=== PATIENT | female | born 1955 | race Caucasian/White ===

== ENCOUNTER → 2017-07-22 13:17 | Outpatient (CLI) | payer OTHER, SELFPAY ==
[2017-07-26 12:53] LABS: HPV Reflexed? NOT INDICATED
== END ==
PROVIDERS: Visit Provider Obstetrics & Gynecology
DX: Z12.4 Encounter for screening for malignant neoplasm of cervix (principal)
CPT/HCPCS: 88175; G0145

== ENCOUNTER → 2017-08-16 14:40 | Outpatient (CLI) | payer OTHER, SELFPAY ==
--- NOTE | 2017-08-16 14:40 | DT_ITS ---
This patient was seen during an EMR downtime August 16, 2017 - August 23, 2017. This patient may have a combination of paper and electronic documentation or all paper documentation. All documentation is viewable within the e-chart portion of [employer] for each patient visit.
--- NOTE | 2017-08-16 14:50 | BI_ITS ---
MAMMOGRAPHY - BILATERAL DIAGNOSTIC REASON FOR EXAM: Female, 62 years old. Screening PERTINENT HISTORY: NO FAM HX - NO PREV SURG'S TECHNIQUE: Digital bilateral breast konrad (3D mammographic acquisition) in the CC and MLO projections. 2-D mediolateral oblique (MLO) and craniocaudad (CC) views of both breasts were obtained. CAD: Full Field Digital Mammography with Computer Added Detection was performed. COMPARISON: 08/06/2016, 08/02/2015 and 07/31/2014 FINDINGS: Breast Composition: There are scattered areas of fibroglandular density. There are no dominant masses or suspicious calcifications. No other significant abnormalities are identified. BI/SCREENING MAMM (CAD), BILAT IMPRESSION: Stable bilateral diagnostic mammogram. One year follow-up recommended. (A) ASSESSMENT CATEGORY: BIRADS Category 2: Benign. A letter regarding these results will be sent to the patient by the facility within 30 days. Approximately 10% of breast cancers are not detected by mammography. A normal mammogram should not delay biopsy of a clinically suspicious abnormality. Electronically Signed: Chino Mann MD at 14:56 EDT Tel , Service support ,
== END ==
PROVIDERS: Visit Provider Obstetrics & Gynecology
DX: Z12.31 Encounter for screening mammogram for malignant neoplasm of breast (principal)
CPT/HCPCS: 77063; 77067

== ENCOUNTER → 2018-07-21 | Outpatient (CLI) | payer OTHER, SELFPAY ==
--- NOTE | 2018-07-21 08:58 | BI_ITS ---
MAMMOGRAPHY - BILATERAL DIAGNOSTIC REASON FOR EXAM: Female, 63 years old. One-month history of left breast tenderness. PERTINENT HISTORY: Non-contributory. TECHNIQUE: Digital bilateral breast konrad (3D mammographic acquisition) in the CC and MLO projections. 2-D mediolateral oblique (MLO) and craniocaudad (CC) views of both breasts were obtained. CAD: Full Field Digital Mammography with Computer Added Detection was performed. COMPARISON: Comparison is made with prior study dated August 16, 2017 and August 06, 2016. FINDINGS: Breast Composition: There are scattered areas of fibroglandular density. There are no dominant masses or suspicious calcifications. No other significant abnormalities are identified. There has been no significant change since the prior study. BI/DIAG MAMM W/CAD, BILAT IMPRESSION: Stable bilateral diagnostic mammogram. One year follow-up recommended. (A) ASSESSMENT CATEGORY: BIRADS Category 1: Negative. A letter regarding these results will be sent to the patient by the facility within 30 days. Approximately 10% of breast cancers are not detected by mammography. A normal mammogram should not delay biopsy of a clinically suspicious abnormality. Electronically Signed: Taras Steele, at 10:56 EDT , Service support ,
== END | disposition home or self-care (01) ==
PROVIDERS: Referring Provider Obstetrics & Gynecology; Visit Provider Obstetrics & Gynecology
DX: N64.4 Mastodynia (principal)
CPT/HCPCS: 77062; 77066; G0279

== ENCOUNTER → 2018-09-06 | Outpatient (CLI) | payer OTHER, SELFPAY ==
--- NOTE | 2018-09-06 14:54 | BD_ITS ---
STUDY: DUAL ENERGY X-RAY ABSORPTIOMETRY / DXA REASON FOR EXAM: Female, 63 years old. The patient is postmenopausal. Loss of height. TECHNIQUE: Bone Mineral Density (BMD) measurements of lumbar spine and bilateral hips were obtained. COMPARISON: Comparison is made with prior study dated August 06, 2016. FINDINGS: Lumbar Spine (L1-L4): g/cm2 (0.930) / T-score (-2.1) / Z-score (-0.7) Findings are suggestive of osteopenia with a moderate fracture risk. Left Femur Total: g/cm2 (0.925) / T-score (-0.7) / Z-score (0.4) Left Femoral Neck: g/cm2 (0.856) / T-score (-1.3) / Z-score (0.0) Right Femur Total: g/cm2 (0.892) / T-score (-0.9) / Z-score (0.1) Right Femoral Neck: g/cm2 (0.815) / T-score (-1.6) / Z-score (-0.3) The T-Scores on the most recent prior examination were: Lumbar Spine (L1-L4): There has been worsening of bone density since the previous examination. Left Femur Total: which represents a worsening of 3.5%. Right Femur Total: which represents an improvement of 0.6%. BD/Dexa Bone Density Study IMPRESSION: The patient is considered osteopenic as outlined below according to World Andrea Organization (WHO) criteria with a moderate fracture risk. There has been worsening of bone density since the previous examination. Reference Information: The T-score is the number of standard deviations above or below the standard which is normal for young adults at their peak bone mineral density. The World Health Organization (WHO) interprets the T-scores as follows: Above -1 Normal bone density Between -1 and -2.5 Osteopenia Equal to / or below -2.5 Osteoporosis As a practical clinical guideline, osteopenia may be graded as follows: Mild -1 through -1.5 Moderate -1.6 through -2.0 Severe -2.1 through -2.4 The Z-score is the number of standard deviations above or below age-matched controls. A Z-score of less than -1.5 would be considered abnormal. References: 1. NIH Osteoporosis and Related Bone Diseases http://www.osteo.org 2. International Society for Clinical Densitometry http://www.iscd.org 3. National Osteoporosis Foundation http://www.nof.org Electronically Signed: Taras Steele, at 10:56 EDT , Service support ,
== END | disposition home or self-care (01) ==
LOC: OPBD 14:45
DX: M81.0 Age-related osteoporosis without current pathological fracture (principal)
CPT/HCPCS: 77080

== ENCOUNTER → 2018-12-29 13:55 | Outpatient (CLI) | payer OTHER, SELFPAY ==
--- NOTE | 2018-12-29 14:00 | RAD_ITS ---
STUDY: X-RAY - ABDOMEN/PELVIS REASON FOR EXAM: Female, 63 years old. Abdominal distention TECHNIQUE: Single AP view of the abdomen / pelvis. COMPARISON: None. FINDINGS: Extensive calcifications overlying both renal shadows more conspicuous than on the previous study simply due to less bowel gas and stool. There is an unremarkable bowel gas pattern. There is no demonstrated free abdominal air. The visualized liver, spleen and kidneys are grossly normal in size and morphology. There are calcified phleboliths in the pelvis. Normal visualized osseous structures. RAD/Abdomen Single View IMPRESSION: Extensive nephrolithiasis Electronically Signed: Daren Gibson MD at 10:02 EDT , Service support ,
== END ==
PROVIDERS: Referring Provider Nurse Practitioner Adult Health; Visit Provider Nurse Practitioner Adult Health
DX: N20.0 Calculus of kidney (principal)
CPT/HCPCS: 74018

== ENCOUNTER → 2019-02-02 08:41 | Outpatient (CLI) | payer OTHER, SELFPAY ==
--- NOTE | 2019-02-02 08:45 | RAD_ITS ---
STUDY: X-RAY - ABDOMEN/PELVIS REASON FOR EXAM: Female, 63 years old. Left-sided kidney stones. TECHNIQUE: Single AP view of the abdomen / pelvis. COMPARISON: 12/29/2018. FINDINGS: No gross change in the extremely numerous bilateral renal stones in all segments, measuring as much as 6 mm in greatest dimension. There is a linear collection of renal stones in the right pelvis that are more prominent than previously and may be in the distal right ureter. No other changes. There is an unremarkable bowel gas pattern. There is no demonstrated free abdominal air. The visualized liver, spleen and kidneys are grossly normal in size and morphology. Normal soft tissue structures. Normal visualized osseous structures. RAD/Abdomen Single View IMPRESSION: Grossly stable very numerous renal stones in all segments of both kidneys. Cannot exclude a linear collection of stones in the distal right ureter. Electronically Signed: Joao Brown MD at 16:51 EST , Service support ,
== END ==
PROVIDERS: Referring Provider Urology; Visit Provider Urology
DX: N20.0 Calculus of kidney (principal)
CPT/HCPCS: 74018

== ENCOUNTER 2019-02-15 10:09 | Day surgery (SDC) | payer OTHER, SELFPAY ==
[2019-02-15 11:00] VITALS: BP 141/85; PULSE 81; RESP 15; TEMP 36.9; O2SAT 98; BMI 28.8
[2019-02-15] MEDS: Lactated Ringers 1,000 ML 100 ML IV (11:12)
[2019-02-15] MEDS: Cefazolin 2 GM in 0.9% Normal Saline 100 ML IV (11:34)
--- NOTE | 2019-02-15 11:38 | DCINST_ITS ---
Discharge Diet: Light diet - advance as tolerated Discharge Activity: Return to Normal Activity Suture Line Care: Avoid Pulling/Pushing, Avoid Pinching/Bending Allergies/Adverse Reactions: Allergies No Known Allergies Allergy (Verified 02/15/19 10:59) Medications to take at Discharge Aspirin E.C. [Ecotrin] 81 mg PO DAILY@0800 03/22/13 Biotin 5,000 mcg PO DAILY 03/22/13 Calcium Carbonate/Vitamin D3 [Calcium 600 + Vit D Tablet] 1 each PO BID 03/22/13 Cholecalciferol (Vitamin D3) [Vitamin D3] 2,000 unit PO BID 03/22/13 Glucosamine/MSM/Chondroitin A [Glucosamine Chondroit MSM Tab] 2 each PO BID 03/22/13 Multivit-Min/FA/Lycopene/Lut [Centrum Silver Tablet] 1 each PO DAILY 03/22/13 Potassium Citrate [Urocit-K] 10 meq PO BID 03/22/13 Alendronate Sodium [Fosamax] 70 mg PO Q7D@0700 02/13/19 Primary Care Physician: Maria Esther Granger DO [Primary Care Provider] - Test Results: Test results from this visit will be discussed in further detail at your follow- up appointment, if applicable. Please Follow Up With: Conrad Dominguez MD When: please call to make an appointment.
--- NOTE | 2019-02-15 12:11 | PCM.OPRPT ---
Report of Operation Date of Procedure: 02/15/19 Pre-Operative Diagnosis: Multiple stones in the distal right ureter hydronephrosis Post-Operative Diagnosis: Same Surgery/Procedure Performed:: Cystoscopy, balloon dilation of the right ureter, right retrograde pyelogram, interpretation fluoroscopic images, right ureteroscopy laser lithotripsy of stones, and right stent placement. Description of Surgical Findings:: 63-year-old female taken back to the operating room at this with induction of general anesthesia she was placed in dorsolithotomy position the urethra vaginal area prepped and draped in the usual sterile fashion went into the bladder with a 21 Tongan rigid cystourethroscope the trigone was normal the left and right ureter was normal the bladder was normal no tumors or stones I then cannulated the right ureter office with a wire advanced a wire passed the stones were then advanced a balloon dilator in the distal ureter and balloon dilated the distal ureter I then left the wire in place and then next the wire went in with a SlimLine rigid ureteroscope I first encountered a stone impacted in the distal ureter this was lasered free and then went up the ureter and encountered a second stone that was stuck in the distal ureter a few centimeters higher this is laser little tiny pieces then all the pieces were passing into the bladder some small pieces were left in the ureter that should pass on their own I then performed a retrograde pyelogram and see contrast going up to the kidney nice smooth contrast he can see the area where the stone was a stuck in the ureter in the mid ureter I then loaded up a stent and over the stent I put a stent 6 Tongan by 24 cm, on the right side left the string of the stent for easy extraction during the patient's bladder and she was taken back to the PACU in good condition plan to see her in about a week to remove the stent. Type of Anesthesia:: General Drains: stent right - Admit VTE Documentation VTE Present on Admission: No VTE Mechan Device Prophylaxis: SCD's
[2019-02-15 12:21] VITALS: BP 112/84; BP 141/85; PULSE 85; RESP 16; TEMP 36.1; O2SAT 93
[2019-02-15 12:30] VITALS: BP 120/86; BP 141/85; PULSE 84; RESP 18; O2SAT 94
[2019-02-15 12:46] VITALS: BP 117/80; BP 141/85; PULSE 79; RESP 18; TEMP 36.1; O2SAT 92
[2019-02-15 13:55] VITALS: BP 123/78; BP 141/85; PULSE 66; RESP 16; O2SAT 94
== END 2019-02-15 14:32 | disposition home or self-care (01) ==
LOC: SDC 10:18 → AC 10:19
PROVIDERS: Referring Provider Urology; Visit Provider Urology
PROC: 0TJ98ZZ Inspection of Ureter, Via Natural or Artificial Opening Endoscopic (ICD-10-PCS; CPT 52352; principal; 2019-02-15 12:05)
DX: N13.2 Hydronephrosis with renal and ureteral calculous obstruction (principal); Z87.442 Personal history of urinary calculi
CPT/HCPCS: 00910; 52356; 76000; J7120; C2617; J2405

== ENCOUNTER → 2019-04-06 11:03 | Outpatient (CLI) | payer OTHER, SELFPAY ==
[2019-04-06 13:23] LABS: Anion Gap 5 (5-15); BUN 13 mg/dL (7-18); Chloride 107 mmol/L (98-107); Creatinine, Serum 1.08 mg/dL (0.55-1.02); EST Glomerular Filtration Rate 55 mL/min (>60); Est Glom Filt Rate - Afr Amer 66 mL/min (>60); Glucose 90 mg/dL (74-106); Potassium 4.6 mmol/L (3.5-5.1); Sodium Level 141 mmol/L (136-145)
== END ==
PROVIDERS: Referring Provider Urology; Visit Provider Urology
DX: N20.0 Calculus of kidney (principal)
CPT/HCPCS: 36415; 80048

== ENCOUNTER → 2019-09-08 07:58 | Outpatient (CLI) | payer OTHER, SELFPAY ==
--- NOTE | 2019-09-08 08:12 | BI_ITS ---
MAMMOGRAPHY - BILATERAL SCREENING 3-D TOMOSYNTHESIS REASON FOR EXAM: Female, 64 years old. Routine screening PERTINENT HISTORY: BILAT SCREENING - NO FAM HX - NO PREV SURG''S. TECHNIQUE: 2-D mammograms and 3-D Tomosynthesis of the breast (s) were performed. CAD was performed. COMPARISON: 07/21/2018 FINDINGS: The breast composition is composed of scattered fibroglandular density. Scattered benign calcifications are seen. No dense spiculated masses or suspicious microcalcifications are identified. No architectural distortion is identified. There is no skin thickening or retraction. There has been no significant change since the prior study. BI/SCREEN MAMM (CAD) W/BRANDAN BILAT IMPRESSION: No mammographic signs of malignancy. Routine yearly mammograms recommended. ASSESSMENT CATEGORY: BIRADS Category 1: Negative. A letter regarding these results will be sent to the patient by the facility within 30 days. FOLLOW UP RECOMMENDATION: Yearly follow up mammogram recommended. (A) Approximately 10% of breast cancers are not detected by mammography. A normal mammogram should not delay biopsy of a clinically suspicious abnormality. Electronically Signed: Daren Gibson MD at 9:15 EDT , Service support ,
== END ==
PROVIDERS: Referring Provider Obstetrics & Gynecology; Visit Provider Obstetrics & Gynecology
DX: Z12.31 Encounter for screening mammogram for malignant neoplasm of breast (principal)
CPT/HCPCS: 77063; 77067

== ENCOUNTER → 2020-07-04 13:25 | Outpatient (CLI) | payer OTHER, SELFPAY ==
--- NOTE | 2020-07-04 13:43 | RAD_ITS ---
STUDY: X-RAY - ABDOMEN/PELVIS REASON FOR EXAM: Female, 64 years old. CALCULUS OF KIDNEY TECHNIQUE: Single AP view of the abdomen / pelvis. COMPARISON: 02/02/2019 FINDINGS: Normal visualized lung bases. There is an unremarkable bowel gas pattern. Several calcific opacities overlying both kidneys consistent with bilateral renal stones. No definite ureteral stone. Normal soft tissue structures. Mild dextroscoliosis lumbar spine RAD/Abdomen Single View IMPRESSION: Bilateral renal stones. Electronically Signed: Christian Lujan MD at 17:03 EDT Tel , Service support ,
== END ==
LOC: LAB 13:28 → RAD 13:29
PROVIDERS: Referring Provider Urology; Visit Provider Urology
DX: N20.0 Calculus of kidney (principal)
CPT/HCPCS: 74018

== ENCOUNTER → 2020-08-02 | Outpatient (CLI) | payer OTHER, SELFPAY ==
[2020-08-06 20:24] LABS: HPV APTIMA, High Risk Negative (Negative)
== END | disposition home or self-care (01) ==
LOC: LABSPEC 11:20
PROVIDERS: Visit Provider Obstetrics & Gynecology
DX: Z12.4 Encounter for screening for malignant neoplasm of cervix (principal)
CPT/HCPCS: 87624; 88175; G0145

== ENCOUNTER → 2020-09-12 07:25 | Outpatient (CLI) | payer OTHER, SELFPAY ==
--- NOTE | 2020-09-12 07:28 | BI_ITS ---
MAMMOGRAPHY - BILATERAL SCREENING REASON FOR EXAM: Female, 65 years old. Routine annual screening examination. PERTINENT HISTORY: Non-contributory. TECHNIQUE: Digital bilateral breast brandan (3D mammographic acquisition) in the CC and MLO projections. 2-D mediolateral oblique (MLO) and craniocaudad (CC) views of both breasts were obtained. CAD: Full Field Digital Mammography with Computer Added Detection was performed. COMPARISON: Comparison is made with prior study dated 09/08/2019 and 07/21/2018. FINDINGS: Breast Composition: There are scattered areas of fibroglandular density. There are no dominant masses or suspicious calcifications. Stable benign-appearing bilateral axillary lymph nodes. No other significant abnormalities are identified. There has been no significant change since the prior study. BI/SCRN MAMM (CAD)W/BRANDAN BILAT IMPRESSION: Stable bilateral screening mammogram. Yearly follow-up mammogram recommended. (A) ASSESSMENT CATEGORY: BIRADS Category 2: Benign. A letter regarding these results will be sent to the patient by the facility within 30 days. Approximately 10% of breast cancers are not detected by mammography. A normal mammogram should not delay biopsy of a clinically suspicious abnormality. [id number] Electronically Signed: Taras Steele MD at 8:59 EDT , Service support ,
--- NOTE | 2020-09-12 08:13 | BD_ITS ---
STUDY: DUAL ENERGY X-RAY ABSORPTIOMETRY / DXA REASON FOR EXAM: Female, 65 years old. 733.90OsteopeniaBONE DENSITY REASON FOR EXAM. Patient is postmenopausal. Loss of height. TECHNIQUE: Bone Mineral Density (BMD) measurements of lumbar spine and bilateral hips were obtained. COMPARISON: Comparison is made with prior study dated 09/06/2018. FINDINGS: Lumbar Spine (L1-L4): g/cm2 (0.994) / T-score (-1.6) / Z-score (0.0) Findings are suggestive of osteopenia with a moderate fracture risk. Left Femur Total: g/cm2 (0.938) / T-score (-0.6) / Z-score (0.6) Left Femoral Neck: g/cm2 (0.869) / T-score (-1.2) / Z-score (0.2) Right Femur Total: g/cm2 (0.874) / T-score (-1.1) / Z-score (0.1) Right Femoral Neck: g/cm2 (0.840) / T-score (-1.4) / Z-score (0.0) The T-Scores on the most recent prior examination were: Lumbar Spine (L1-L4): There has been improvement of bone density since the previous examination. Left Femur Total: which represents an improvement of 1.4%. Right Femur Total: which represents a worsening of 2%. BD/Dexa Bone Density Study IMPRESSION: The patient is considered osteopenic as outlined below according to World Andrea Organization (WHO) criteria with a moderate fracture risk. There has been improvement of bone density since the previous examination. Reference Information: The T-score is the number of standard deviations above or below the standard which is normal for young adults at their peak bone mineral density. The World Health Organization (WHO) interprets the T-scores as follows: Above -1 Normal bone density Between -1 and -2.5 Osteopenia Equal to / or below -2.5 Osteoporosis As a practical clinical guideline, osteopenia may be graded as follows: Mild -1 through -1.5 Moderate -1.6 through -2.0 Severe -2.1 through -2.4 The Z-score is the number of standard deviations above or below age-matched controls. A Z-score of less than -1.5 would be considered abnormal. References: 1. NIH Osteoporosis and Related Bone Diseases www osteo.org 2. International Society for Clinical Densitometry www iscd.org 3. National Osteoporosis Foundation www nof.org Electronically Signed: Taras Steele MD at 15:23 EDT , Service support ,
== END ==
PROVIDERS: Visit Provider Obstetrics & Gynecology
DX: Z12.31 Encounter for screening mammogram for malignant neoplasm of breast (principal); M85.80 Other specified disorders of bone density and structure, unspecified site
CPT/HCPCS: 77063; 77067; 77080

== ENCOUNTER → 2021-09-16 | Outpatient (CLI) | payer MEDICARE, OTHER, SELFPAY ==
--- NOTE | 2021-09-16 14:15 | BI_ITS ---
MAMMOGRAPHY - BILATERAL SCREENING REASON FOR EXAM: Female, 66 years old. Routine annual screening examination. PERTINENT HISTORY: Non-contributory. TECHNIQUE: Digital bilateral breast brandan (3D mammographic acquisition) in the CC and MLO projections. 2-D mediolateral oblique (MLO) and craniocaudad (CC) views of both breasts were obtained. CAD: Full Field Digital Mammography with Computer Added Detection was performed. COMPARISON: Comparison is made with prior study dated 09/12/2020 and 09/08/2019. FINDINGS: Breast Composition: There are scattered areas of fibroglandular density. There are no dominant masses or suspicious calcifications. Stable benign-appearing bilateral axillary lymph nodes. No other significant abnormalities are identified. There has been no significant change since the prior study. BI/SCRN MAMM (CAD)W/BRANDAN BILAT IMPRESSION: Stable bilateral screening mammogram. Yearly follow-up mammogram recommended. (A) ASSESSMENT CATEGORY: BIRADS Category 2: Benign. A letter regarding these results will be sent to the patient by the facility within 30 days. Approximately 10% of breast cancers are not detected by mammography. A normal mammogram should not delay biopsy of a clinically suspicious abnormality. [id number] Electronically Signed: Taras Steele MD at 15:12 EDT ,
== END | disposition home or self-care (01) ==
LOC: OPBI 14:10
PROVIDERS: Visit Provider Obstetrics & Gynecology
DX: Z12.31 Encounter for screening mammogram for malignant neoplasm of breast (principal)
CPT/HCPCS: 77063; 77067

== ENCOUNTER → 2021-12-25 | Outpatient (CLI) | payer MEDICARE, OTHER, SELFPAY ==
--- NOTE | 2021-12-25 08:35 | RAD_ITS ---
STUDY: X-RAY - ABDOMEN/PELVIS REASON FOR EXAM: Female, 66 years old. CALCULUS OF KIDNEY TECHNIQUE: PA or AP COMPARISON: 07/04/2020. FINDINGS: Normal visualized lung bases. There are numerous bilateral renal calculi throughout both kidneys. These are seen throughout the upper, mid, and lower poles bilaterally and appear stable as compared to the prior study. There is an unremarkable bowel gas pattern. There is no demonstrated free abdominal air. The visualized liver, spleen and kidneys are grossly normal in size and morphology. Normal soft tissue structures. Moderate osteitis symphysis. RAD/Abdomen Single View IMPRESSION: Stable extensive bilateral nephrolithiasis. Osteitis symphysis. Electronically Signed: Cliff Bolton MD, BRYANT at 10:36 EDT ,
== END | disposition home or self-care (01) ==
PROVIDERS: Referring Provider Urology; Visit Provider Urology
DX: N20.0 Calculus of kidney (principal)
CPT/HCPCS: 74018

== ENCOUNTER → 2022-10-15 | Outpatient (CLI) | payer MEDICARE, OTHER, SELFPAY ==
--- NOTE | 2022-10-15 07:23 | BI_ITS ---
MAMMOGRAPHY - BILATERAL SCREENING REASON FOR EXAM: Female, 67 years old. Routine annual screening examination. PERTINENT HISTORY: Non-contributory. TECHNIQUE: Digital bilateral breast brandan (3D mammographic acquisition) in the CC and MLO projections. 2-D mediolateral oblique (MLO) and craniocaudad (CC) views of both breasts were obtained. CAD: Full Field Digital Mammography with Computer Added Detection was performed. COMPARISON: Comparison is made with prior study September 16, 2021 and September 12, 2020. FINDINGS: Breast Composition: There are scattered areas of fibroglandular density. There are no dominant masses or suspicious calcifications. Stable small benign-appearing bilateral axillary lymph nodes. No other significant abnormalities are identified. There has been no significant change since the prior study. BI/SCRN MAMM (CAD)W/BRANDAN BILAT IMPRESSION: Stable bilateral screening mammogram. Yearly follow-up mammogram recommended. (A) ASSESSMENT CATEGORY: BIRADS Category 2: Benign. A letter regarding these results will be sent to the patient by the facility within 30 days. Approximately 10% of breast cancers are not detected by mammography. A normal mammogram should not delay biopsy of a clinically suspicious abnormality. [id number] Electronically Signed: Taras Steele MD at 8:34 EDT ,
--- NOTE | 2022-10-15 08:09 | BD_ITS ---
STUDY: DUAL ENERGY X-RAY ABSORPTIOMETRY / DXA REASON FOR EXAM: Female, 67 years old. 627.8Menopausal postmenopausal BONE DENSITY REASON FOR EXAM TECHNIQUE: Bone Mineral Density (BMD) measurements of lumbar spine and bilateral hips were obtained. COMPARISON: Comparison is made with prior study of September 12, 2020. FINDINGS: Lumbar Spine (L1-L4): g/cm2 (0.817) / T-score (-2.1) / Z-score (-0.2) Findings are suggestive of osteopenia with a high fracture risk. Left Femur Total: g/cm2 (0.74) / T-score (-1.3) / Z-score (0.0) Left Femoral Neck: g/cm2 (0.661) / T-score (-1.7) / Z-score (-0.1) Right Femur Total: g/cm2 (0.734) / T-score (-1.7) / Z-score (-0.4) Right Femoral Neck: g/cm2 (0.666) / T-score (-1.6) / Z-score (-0.1) The T-Scores on the most recent prior examination were: Lumbar Spine (L1-L4): There has been worsening of bone density since the previous examination. Left Femur Total: which represents a worsening of 3.2%. Right Femur Total: which represents a worsening of 9.6%. BD/Dexa Bone Density Study IMPRESSION: The patient is considered osteopenic as outlined below according to World Andrea Organization (WHO) criteria with a moderate fracture risk. There has been worsening of bone density since the previous examination. Reference Information: The T-score is the number of standard deviations above or below the standard which is normal for young adults at their peak bone mineral density. The World Health Organization (WHO) interprets the T-scores as follows: Above -1 Normal bone density Between -1 and -2.5 Osteopenia Equal to / or below -2.5 Osteoporosis As a practical clinical guideline, osteopenia may be graded as follows: Mild -1 through -1.5 Moderate -1.6 through -2.0 Severe -2.1 through -2.4 The Z-score is the number of standard deviations above or below age-matched controls. A Z-score of less than -1.5 would be considered abnormal. References: 1. NIH Osteoporosis and Related Bone Diseases www osteo.org 2. International Society for Clinical Densitometry www iscd.org 3. National Osteoporosis Foundation www nof.org Electronically Signed: Taras Steele MD at 13:04 EDT ,
== END | disposition home or self-care (01) ==
LOC: OPBI 07:22
PROVIDERS: Visit Provider Student in an Organized Health Care Education/Training Program
DX: Z12.31 Encounter for screening mammogram for malignant neoplasm of breast (principal); Z78.0 Asymptomatic menopausal state; M85.80 Other specified disorders of bone density and structure, unspecified site
CPT/HCPCS: 77063; 77067; 77080

== ENCOUNTER → 2022-12-21 | Outpatient (CLI) | payer MEDICARE, OTHER, SELFPAY ==
--- NOTE | 2022-12-21 08:35 | RAD_ITS ---
STUDY: X-RAY - ABDOMEN/PELVIS REASON FOR EXAM: Female, 67 years old. CALCULUS OF KIDNEY TECHNIQUE: Two AP supine views of the abdomen and pelvis. COMPARISON: July 04, 2020 KUB FINDINGS: Normal visualized lung bases. There are bilateral multiple punctate renal stones. There is no demonstrated free abdominal air. The visualized liver, spleen and kidneys are grossly normal in size and morphology. There is a stable stable phlebolith in the right pelvis. There is degenerative change of the hip joints and symphysis pubis. RAD/Abdomen Single View IMPRESSION: Persistent Bilateral nephrolithiasis. Electronically Signed: Antonia Palomo MD at 14:51 EDT ,
== END | disposition home or self-care (01) ==
LOC: RAD 08:29
PROVIDERS: Referring Provider Urology; Visit Provider Urology
DX: N20.0 Calculus of kidney (principal)
CPT/HCPCS: 74018

== ENCOUNTER → 2023-11-03 | Outpatient (CLI) | payer MEDICARE, OTHER, SELFPAY ==
--- NOTE | 2023-11-03 09:30 | BI_ITS ---
MAMMOGRAPHY - BILATERAL SCREENING REASON FOR EXAM: Female, 68 years old. Routine annual screening examination. PERTINENT HISTORY: Non-contributory. TECHNIQUE: Digital bilateral breast brandan (3D mammographic acquisition) in the CC and MLO projections. 2-D mediolateral oblique (MLO) and craniocaudad (CC) views of both breasts were obtained. CAD: Full Field Digital Mammography with Computer Added Detection was performed. COMPARISON: Comparison is made with prior study dated October 15, 2022 and September 16, 2021. FINDINGS: Breast Composition: There are scattered areas of fibroglandular density. There are no dominant masses or suspicious calcifications. Stable bilateral axillary lymph nodes. No other significant abnormalities are identified. There has been no significant change since the prior study. BI/SCRN MAMM (CAD)W/BRANDAN BILAT IMPRESSION: Stable bilateral screening mammogram. Yearly follow-up mammogram recommended. (A) ASSESSMENT CATEGORY: BIRADS Category 2: Benign. A letter regarding these results will be sent to the patient by the facility within 30 days. Approximately 10% of breast cancers are not detected by mammography. A normal mammogram should not delay biopsy of a clinically suspicious abnormality. [id number] Electronically Signed: Taras Steele MD at 10:59 EDT ,
== END | disposition home or self-care (01) ==
LOC: OPBI 09:30
PROVIDERS: Referring Provider Nurse Practitioner Women's Health; Visit Provider Nurse Practitioner Women's Health
DX: Z12.31 Encounter for screening mammogram for malignant neoplasm of breast (principal)
CPT/HCPCS: 77063; 77067

== ENCOUNTER → 2023-12-27 | Outpatient (CLI) | payer MEDICARE, OTHER, SELFPAY ==
--- NOTE | 2023-12-27 07:27 | RAD_ITS ---
INDICATION: KIDNEY STONE EXAMINATION/TECHNIQUE: X-RAY - XR Abdomen 1 View COMPARISON: December 25, 2021 and December 21, 2022 FINDINGS: BOWEL GAS PATTERN: Non-obstructive. No bowel or stomach distention. FREE AIR: Not assessed on a single supine view. ORGANOMEGALY: There are persistent bilateral renal calculi measuring up to 5.3 mm on the right and 10.2 mm on the left. CALCIFICATIONS: No abnormal calcifications observed. LOWER CHEST: No acute pathology. BONES AND SOFT TISSUES: There are degenerative changes of the hips. RAD/Abdomen Single View IMPRESSION: Bilateral renal calculi measuring up to 10.2 mm on the left. Electronically Signed: Hailey Rocha MD at 8:24 EDT ,
== END | disposition home or self-care (01) ==
LOC: RAD 07:24
PROVIDERS: Referring Provider Urology; Visit Provider Urology
DX: N20.0 Calculus of kidney (principal)
CPT/HCPCS: 74018

== ENCOUNTER → 2024-10-03 | Outpatient (CLI) | payer MEDICARE, OTHER, SELFPAY ==
--- NOTE | 2024-10-03 07:59 | RAD_ITS ---
PROCEDURE: ABDOMEN SINGLE VIEW 10/03/2024 REASON FOR EXAM: CALCULUS OF KIDNEY TECHNIQUE: ABDOMEN SINGLE VIEW COMPARISON: 12/27/2023 FINDINGS: Extensive bilateral nephrolithiasis, there are more than 10 renal stones on each side. Largest measures 6 mm on the left and 7 mm on the right. 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 No definite ureteral stone. Scoliosis. Nondistended bowel. 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 Reading Location: [facility]-
--- OUTSIDE RECORDS SUMMARY | 2024-10-03 08:28 | XMS RPT_ITS | CCD ---
Author Organization [facility] CliniSyid Care Team Providers Care Manager Applied Name Role Phone DIMITRIOS KHAN, DR GALLEGOS Primary Care Physician OSCAR VALVERDE, DR XIMENA Fitzpatrick Attending Unavailab le DIMITRIOS DO, DR GALLEGOS Primary Care Unavailable DIMITRIOS DO, DR GALLEGOS Attending Unavailable DIMITRIOS DO, DR GALLEGOS Primary Care Unavailable DIMITRIOS DO, DR GALLEGOS Attending Unavailable DIMITRIOS DO, DR GALLEGOS Primary Care Unavailable BRIANNE FERGUSON PA-C Attending Unavailable DIMITRIOS KHAN, DR GALLEGOS Primary Care Unavailable Dimitrios KHAN, Dr. Rosy Alfredo Primary Care Provider Dimitrios KHAN, Dr. Rosy Alfredo Referring Provider [phone] Baljeet TOLENTINOCGladys Attending Provider [phone] Rosy Plunkett Primary Care Unavailable Baljeet [employer]ING [employer] MECHANICGladys Attending Unavailable Baljeet [employer]ING [employer] EQU[employer] MECHANICGladys Referring Unavailable Rosy Pluknett Primary Care Unavailable AngelicaConrad pinon Attending Unavailable AngelicaConrad pinon Referring Unavailable Rosy Plunkett Primary Care Unavailable AngelicaConrad Attending Unavailable AngelicaConrad Referring Unavailable Rosy Plunkett Primary Care Unavailable Rosy Plunkett Referring Unavailable Baljeet [employer]ING [employer] EQU[employer] MECHANICGladys Attending Unavailable DIMITRIOS DO, DR GALLEGOS Attending Unavailable DIMITRIOS DO, DR GALLEGOS Primary Care Unavailable DIMITRIOS , DR GALLEGOS Primary Care Unavailable BRIANNE FERGUSON PA-C Attending Unavailable Allergies Allergy Classification Reported Allergen(s) Allergy Type Date of Onset Reaction(s) Facility Ibandronate (1 source) Ibandronate; Translations: [ibandronate] Drug Allergy Myalgia [facility] [place] (14 sources) Ibandronate; Translations: [ibandronate] Drug Allergy Myalgia [facility] (1 source) Ibandronate Drug Allergy 5 Pain in joints [facility] (1 source) Ibadronate Drug Allergy 5 [facility] Repository Medications Current Medications Medication Drug Class(es) Dates Sig (Normalized) Sig (Original) alendronic acid 70 mg oral tablet (19 sources) Bisphosphonate Start: 09-21-2024 alendronate 70 mg oral tablet Dose : 70 mg = 1 tab(s), Oral, qWeek, # 12 tab(s), 3 Refill(s), Pharmacy: [facility]/pharmacy #[id number], 154.4, cm, 09/21/24 8:16:00 EDT, Height, kg, 09/21/24 8:16:00 EDT, Dosing Weight Start Date: 09/21/24 Status: Ordered Quantity: 12.0 Unit: tab(s) Repeat number: 4 Start: 02-13-2019 alendronate 70 mg oral tablet Dose : 70 mg = 1 tab(s), Oral, qWeek, # 12 tab(s), 3 Refill(s), Pharmacy: [facility]/pharmacy #[id number], 154, cm, 09/21/23 9:03:00 EDT, Height, kg, 09/21/23 9:03:00 EDT, Dosing Weight Start Date: 09/21/23 Status: Ordered Antiarthritic Combination No.2 (Glucosamine-Chondroitin) 900 mg tablet (1 source) Start: 08-21-2024 Antiarthritic Combination No.2 (Glucosamine-Chondroitin) 900 mg tablet Active mg PO August 21, 2024 12:00am baclofen 5 mg oral tablet (3 sources) gamma-Amino butyric Acid-ergic Agonist Start: 03-12-2022 baclofen 5 mg oral tablet Dose : 5 mg = 1 tab(s), Oral, TID, PRN as needed for muscle spasm, # 30 tab(s), 0 Refill(s), Pharmacy: [facility]/pharmacy #[id number], 155, cm, 03/10/22 14:33:00 EST, Height Start Date: 03/12/22 Status: Ordered Biotin (19 sources) Start: 08-24-2019 biotin Oral, qDay, 0 Refill(s) Start Date: 08/24/19 Status: Ordered Repeat number: 1 Start: 08-24-2019 biotin Oral, q Day, 0 Refill(s) Start Date: 08/24/19 Status: Ordered Start: 03-22-2013 take 2 capsules by m outh once daily Biotin 2,500 MCG capsule Active 5000 ug PO DAILY March 22, 2013 1:00am Start: 03-22-2013 take 5000 ug by mouth once karthikeyan ly Biotin Active 5000 MCG PO DAILY March 22, 2013 1:00am calcium citrate 1500 mg / cholecalciferol 200 unt oral tablet (1 source) Vitamin D Start: 08-18-2023 Calcium Citrate-Vitamin D3 (Calcium Citrate + D) 315 mg-5 mcg (200 unit) tablet Active 1 {tbl} PO DAILY August 18, 2023 12:00am cefdinir 300 mg oral capsule (1 source) Cephalosporin Antibacterial Start: 02-01-2021 End: 02-11-2021 cefdinir 300 mg oral capsule Dose : 300 mg = 1 cap(s), Oral, q12h, # 20 cap(s), 0 Refill(s), 69.5 Start Date: 02/01/21 Stop Date: 02/11/21 Status: Ordered Centrum Silver oral tablet (15 sources) Start: 08-24-2019 take 1 tablet by mouth once daily Centrum Silver oral tablet Oral, qDay, 0 Refill(s) Start Date: 08/24/19 Status: Ordered Repeat number: 1 Start: 08-24-2019 take 1 tablet by ricardo once daily Centrum Silver oral tablet Oral, qDay, 0 Refill(s) Start Date: 08/24/19 Status: Ordered cholecalciferol 0.05 mg oral tablet (4 sources) Vitamin D Start: 03-22-2013 take 1 tablet by mouth twice daily Cholecalciferol (Vitamin D3) (Vitamin D3) 2,000 UNIT tablet Active 2000 U PO TWICE A DAY March 22, 2013 1:00am Chondroitin Sulfates / Glucosamine / methylsulfonylmethane (5 sources) Start: 08-15-2020 chondroitin/glucosam ine/methylsulfonylme yordy 0 Refill(s) Start Date: 08/15/20 Status: Ordered Start: 03-22-2013 End: 08-18-2023 take 1 tablet by mouth twice daily Glucosamine Phz-Efx-Rwfmscegns 1 EACH tablet Discontinued 2 NMA PO TWICE A DAY March 22, 2013 1:00am August 18, 2023 2:43pm Start: 03-22-2013 Glucosamine Hc a-Dfk-Yewycsnlnb Active 2 EACH PO TWICE A DAY March 22, 2013 1:00am lutein 10 mg oral tablet (7 sources) Start: 08-18-2023 take 1 tablet by mouth once daily Lutein 10 mg tablet Active 10 mg PO DAILY August 18, 2023 12:00am give with meal/snack Start: 09-18-2022 lutein Oral, q Day, 0 Refill(s) Start Date: 09/18/22 Status: Ordered Repeat number: 1 Start: 09-18-2022 lutein Oral, q Day, 0 Refill(s) Start Date: 09/18/22 Status: Ordered methylsulfonylmethane 1000 m g oral tablet (14 sources) Start: 08-19-2021 take 1 tablet by mouth once daily MSM 1000 mg oral tablet 1, Oral, qDay, with glucosamine, 0 Refill(s) Start Date: 08/19/21 Status: Ordered Repeat number: 1 Start: 08-19-2021 take 1 tablet by ricardo twice daily MSM 1000 mg oral tablet 1, Oral, BID, with glucosamine, 0 Refill(s) Start Date: 08/19/21 Status: Ordered Amcdtbvc-Sao-Te-Lycopen-Lute in (Centrum Silver Tablet) 1 EACH tablet (4 sources) Start: 03-22-2013 Ugvbqlgm-Xbn-Kw-Lycopen-Lute in (Centrum Silver Tablet) 1 EACH tablet Active 1 NMA PO DAILY March 22, 2013 1:00am Start: 03-22-2013 Exldoedm-Tgx-T q-Ykvrnkz-Wpudyj (Centrum Silver Tablet) 1 EACH tablet Active 1 EACH PO DAILY March 22, 2013 1:00am potassium citrate 10 meq extended release oral tablet (20 sources) Start: 08-18-2023 take 1 tablet by mouth twice daily Potassium Citrate 10 mEq (1,080 mg) tablet extended release Active 2160 mg PO TWICE A DAY August 18, 2023 12:00am Start: 12-17-2018 take 1 tablet by ricardo twice daily potassium citrate 10 mEq oral tablet, extended release TAKE ONE TABLET BY MOUTH TWICE DAILY Start Date: 12/17/18 Status: Ordered Repeat number: 1 Start: 03-22-2013 End: 08-18-2023 Potassium Citrate (Urocit-K) 15 MEQ tablet extended release Discontinued 10 meq PO TWICE A DAY March 22, 2013 1:00am August 18, 2023 2:43pm sulfamethoxazole 800 mg / trimethoprim 160 mg oral tablet (1 source) Dihydrofolate Reductase Inhibitor Antibacterial, Sulfonamide Antimicrobial Start: 02-01-2021 End: 02-08-2021 take 1 tablet by mouth twice daily Bactrim DS 800 mg-160 mg oral tablet Dose = 1 tab(s), Oral, BID, X 7 day(s), # 14 tab(s), 0 Refill(s), Pharmacy: [facility]/pharmacy #[id number], 155, cm, 02/01/21 10:48:00 EST, Height, 70.5, kg, 02/01/21 10:48:00 EST, Dosing Weight Start Date: 02/01/21 Stop Date: 02/08/21 Status: Ordered Vitamin D3 (15 sources) Start: 08-24-2019 take 1 dose by mouth once daily Vitamin D3 Dose : 25 mcg =, Oral, qDay, 0 Refill(s) Start Date: 08/24/19 Status: Ordered Repeat number: 1 Start: 08-24-2019 take 1 dose by mouth once cailin y Vitamin D3 Dose : 25 mcg =, Oral, qDay, 0 Refill(s) Start Date: 08/24/19 Status: Ordered Start: 08-24-2019 Vitamin D3 qDa y, 0 Refill(s) Start Date: 08/24/19 Status: Ordered Completed/Discontinued Medications Medication Drug Class(es) Dates Sig (Normalized) Sig (Original) 8 hr acetaminophen 650 mg extended release oral tablet (6 sources) Start: 08-18-2023 End: 08-21-2024 take 1 tablet by mouth every twelve hours Acetaminophen (Tylenol Arthritis Pain) 650 mg tablet extended release Discontinued 650 mg PO Q12H August 18, 2023 12:00am August 21, 2024 8:07am Start: 11-20-2022 Tylenol 8 HR A rthritis Pain 650 mg oral tablet, extended release Dose : 1,300 mg = 2 tab(s), Oral, q8h, PRN as needed for pain, 0 Refill(s) Start Date: 11/20/22 Status: Ordered Repeat number: 1 acetaminophen 325 mg / HYDROcodone bitartrate 5 mg oral tablet (4 sources) Opioid Agonist Start: 02-15-2019 End: 03-01-2019 Hydrocodone-Acetaminophen 1 EACH tablet Discontinued 1 NMA PO EVERY 4 HOURS NEEDED as needed for Pain Score 1-10/10 14 February 15, 2019 February 19, 2019 1:00am March 01, 2019 1:10am Start: 02-15-2019 End: 03-01-2019 Hydrocodone-Acetaminophen Di scontinued 1 EACH PO EVERY 4 HOURS NEEDED 14 February 15, 2019 March 01, 2019 1:10am aspirin 81 mg delayed release oral tablet (4 sources) Platelet Aggregation Inhibitor, Nonsteroidal Anti-inflammatory Drug Start: 03-22-2013 End: 08-18-2023 take 1 tablet by mouth once daily Aspirin 81 MG tablet Discontinued 81 mg PO DAILY@0800 March 22, 2013 1:00am August 18, 2023 2:42pm calcium carbonate 1500 mg / cholecalciferol 0.01 mg oral tablet (4 sources) Vitamin D Start: 03-22-2013 End: 08-18-2023 Calcium Carbonate-Vitamin D3 (Calcium 600 + Vit D Tablet) 1 EACH tablet Discontinued 1 NMA PO TWICE A DAY March 22, 2013 1:00am August 18, 2023 2:43pm ciprofloxacin 500 mg oral tablet (4 sources) Quinolone Antimicrobial Start: 02-15-2019 End: 08-18-2023 take 1 tablet by mouth twice daily Ciprofloxacin Hcl 500 MG tablet Discontinued 500 mg PO TWICE A DAY February 15, 2019 1:00am August 18, 2023 2:43pm citrcal (15 sources) Start: 08-11-2019 citrcal citrcal, 2 tab(s), Oral, Daily, 0 Refill(s), 61.5 Start Date: 08/11/19 Status: Ordered Repeat number: 1 Start: 08-11-2019 citrcal citrca l, 2 tab(s), Oral, Daily, 0 Refill(s), 61.5 Start Date: 08/11/19 Status: Ordered Start: 08-11-2019 citrcal citrca l, 0 Refill(s), 61.5 Start Date: 08/11/19 Status: Ordered Problems Active Problems Problem Classification Problem Date Documented Date Episodic/Chronic Calculus of urinary tract (17 sources) Kidney stone; Translations: [Calculus of kidney] Onset: 01-21-2024 08-15-2020 Episodic Chronic kidney disease (15 sources) Chronic kidney disease stage 3 01-10-2021 Chronic Chronic kidney disease (1 source) Chronic kidney disease; Translations: [Chronic kidney disease, stage 3 unspecified] Onset: 09-21-2024 Genitourinary symptoms and ill-defined conditions (11 sources) Blood in urine 02-01-2021 Episodic Menopausal disorders (2 sources) Atrophic vaginitis; Translations: [Postmenopausal atrophic vaginitis] 08-21-2024 Chronic Comment on above: asymptomatic Osteoarthritis (13 sources) Osteoarthritis of knee; Translations: [Arthritis] 02-18-2022 Chronic Other bone disease and musculoskeletal deformities (15 sources) Osteopenia 08-11-2019 Episodic Other bone disease and musculoskeletal deformities (1 source) Other specified disorders of bone density and structure, unspecified site; Translations: [Other specified disorders of bone density and structure, unspecified site] Onset: 09-21-2024 Episodic Other connective tissue disease (2 sources) Artificial knee joint present; Translations: [Presence of left artificial knee joint] Chronic Other connective tissue disease (13 sources) Pain in thumb 09-03-2021 Episodic Other connective tissue disease (2 sources) Musculoskeletal test abnormal; Translations: [Other symptoms and signs involving the musculoskeletal system] Episodic Other lower respiratory disease (2 sources) Cough 02-01-2021 Episodic Other nervous system disorders (2 sources) Walking disability; Translations: [Difficulty in walking, not elsewhere classified] Chronic Other non-traumatic joint disorders (2 sources) Pain in left knee; Translations: [Pain of left knee joint] Episodic Other non-traumatic joint disorders (2 sources) Knee stiff; Translations: [Stiffness of left knee, not elsewhere classified] Episodic Residual codes; unclassified (6 sources) Postmenopausal state 09-22-2022 Episodic Past or Other Problems Problem Classification Problem Date Documented Da te Episodic/Chronic Other screening for suspected conditions (not mental disorders or infectious disease) (1 source) Encounter for screening mammogram for malignant neoplasm of breast; Translations: [Encounter for screening mammogram for malignant neoplasm of breast] Onset: 11-19-2023 Episodic Results Test Name Value Interpretation Reference Range Facility .Auto Diffon 09-21-2024 Basophil, Absolute 0.1 10 3/mcL Normal 0.0-0.3 [facility] Comment on above: Performed By: #### A DINA, CBC, CMP, MORPH, VIDH, TSH, GFR, ADIFF #### [address] [address] Basophils/100 WBC (Bld) 1.3 % Normal 0.0-2.5 [facility] Comment on above: Performed By: #### A DINA, CBC, CMP, MORPH, VIDH, TSH, GFR, ADIFF #### [address] [address] Eosinophil, Absolute 0.1 10 3/mcL Normal 0.0-0.7 [facility] Comment on above: Performed By: #### A DINA, CBC, CMP, MORPH, VIDH, TSH, GFR, ADIFF #### [address] [address] Eosinophils/100 WBC (Bld) 1.2 % Normal 0.0-6.0 [facility] Comment on above: Performed By: #### A DINA, CBC, CMP, MORPH, VIDH, TSH, GFR, ADIFF #### [address] [address] Lymphocyte, Absolute 1.7 10 3/mcL Normal 0.9-4.3 [facility] Comment on above: Performed By: #### A DINA, CBC, CMP, MORPH, VIDH, TSH, GFR, ADIFF #### [address] [address] Lymphocytes/100 WBC (Bld) 36.0 % Normal 20.0-40.0 [facility] Comment on above: Performed By: #### A DINA, CBC, CMP, MORPH, VIDH, TSH, GFR, ADIFF #### [address] [address] Monocyte, Absolute 0.4 10 3/mcL Normal 0.1-1.4 [facility] Comment on above: Performed By: #### A DINA, CBC, CMP, MORPH, VIDH, TSH, GFR, ADIFF #### [address] [address] Monocytes/100 WBC (Bld) 7.7 % Normal 2.0-13.0 [facility] Comment on above: Performed By: #### A DINA, CBC, CMP, MORPH, VIDH, TSH, GFR, ADIFF #### [address] [address] Neutrophils/100 WBC (Bld) 53.8 % Normal 50.0-75.0 [facility] Comment on above: Performed By: #### A DINA, CBC, CMP, MORPH, VIDH, TSH, GFR, ADIFF #### [address] [address] .GFRon 09-21-2024 Estimated Glomerular Filtration Rate 55 ml/min/1.73sqm Normal [facility] Comment on above: Result Comment: Stages of Chronic Kidney Disease (CKD) Stage Description eGFR(ml/min/1.73 sq.m.) CKD 1 Normal kidney function or >=90 normal kindney function with possible kidney damage (ex. Proteinuria) CKD 2 Kidney damage with mild loss 60-89 of kidney function CKD 3a Mild to moderate loss of kidney 45-59 function CKD 3b Moderate to severe loss of 30-44 of kindey function CKD 4 Severe loss of kidney function 15-29 CKD 5 Kidney failure <15 Note: (go live 2024) the eGFR calculation was updated to the 2020 CKD-EPI creatinine equation without a race factor to calculate the eGFR results. Performed By: #### A DINA, CBC, CMP, MORPH, VIDH, TSH, GFR, ADIFF #### [address] [address] .Morphon 09-21-2024 Platelet Estimate Normal Normal [facility] Comment on above: Performed By: #### A DINA, CBC, CMP, MORPH, VIDH, TSH, GFR, ADIFF #### [address] [address] .NEUABSon 09-21-2024 Neutrophil, Absolute 2.6 10 3/mcL Normal 2.3-8.1 [facility] Comment on above: Performed By: #### A DINA, CBC, CMP, MORPH, VIDH, TSH, GFR, ADIFF #### [address] [address] CBCon 09-21-2024 Erythrocyte distribution width (RBC) [Ratio] 13.4 % Normal 11.5-15.5 [facility] Comment on above: Performed By: #### A DINA, CBC, CMP, MORPH, VIDH, TSH, GFR, ADIFF #### [address] [address] Hematocrit (Bld) [Volume fraction] 42.3 % Normal 34.0-46.0 [facility] Comment on above: Performed By: #### A DINA, CBC, CMP, MORPH, VIDH, TSH, GFR, ADIFF #### [address] [address] Hgb 14.8 G/dL Normal 12.0-16.0 [facility] Comment on above: Performed By: #### A DINA, CBC, CMP, MORPH, VIDH, TSH, GFR, ADIFF #### [address] [address] MCH (RBC) [Entitic mass] 32.0 pg Normal 27.0-33.0 [facility] Comment on above: Performed By: #### A DINA, CBC, CMP, MORPH, VIDH, TSH, GFR, ADIFF #### [address] [address] MCHC 35.0 G/dL Normal 32.0-36.0 [facility] Comment on above: Performed By: #### A DINA, CBC, CMP, MORPH, VIDH, TSH, GFR, ADIFF #### [place] [id number] MCV (RBC) [Entitic vol] 91.3 fL Normal 80.0-99.0 [facility] Comment on above: Performed By: #### A DINA, CBC, CMP, MORPH, VIDH, TSH, GFR, ADIFF #### [address] [place] [address] Platelet 245 10 3/mcL Normal 150-450 [facility] Comment on above: Performed By: #### A DINA, CBC, CMP, MORPH, VIDH, TSH, GFR, ADIFF #### [address] [address] Platelet mean volume (Bld) [Entitic vol] 8.3 fL Normal 6.6-10.5 [facility] Comment on above: Performed By: #### A DINA, CBC, CMP, MORPH, VIDH, TSH, GFR, ADIFF #### [address] [address] RBC 4.64 10 6/mcL Normal 4.10-5.30 [facility] Comment on above: Performed By: #### A DINA, CBC, CMP, MORPH, VIDH, TSH, GFR, ADIFF #### [address] [address] WBC 4.7 10 3/mcL Normal 4.5-10.8 [facility] Comment on above: Performed By: #### A DINA, CBC, CMP, MORPH, VIDH, TSH, GFR, ADIFF #### [address] [address] CMPon 09-21-2024 Albumin Level 4.0 G/dL Normal 3.4-4.8 [facility] Comment on above: Performed By: #### A DINA, CBC, CMP, MORPH, VIDH, TSH, GFR, ADIFF #### [address] [address] Albumin/Globulin [Mass ratio] 1.1 {ratio} Normal 1.1-2.5 [facility] Comment on above: Performed By: #### A DINA, CBC, CMP, MORPH, VIDH, TSH, GFR, ADIFF #### [address] [address] ALP [Catalytic activity/Vol] 100 U/L Normal 40-135 [facility] Comment on above: Performed By: #### A DINA, CBC, CMP, MORPH, VIDH, TSH, GFR, ADIFF #### [address] [address] ALT [Catalytic activity/Vol] 20 U/L Normal 14-59 [facility] Comment on above: Performed By: #### A DINA, CBC, CMP, MORPH, VIDH, TSH, GFR, ADIFF #### [address] [address] AST [Catalytic activity/Vol] 19 U/L Normal 10-40 [facility] Comment on above: Performed By: #### A DINA, CBC, CMP, MORPH, VIDH, TSH, GFR, ADIFF #### [address] [address] Bili Total 1.4 mg/dL High 0.2-1.0 [facility] Comment on above: Result Comment: Use of this assay is not recommended for patients undergoing treatment with eltrombopag due to the potential for falsely elevated results. Performed By: #### A DINA, CBC, CMP, MORPH, VIDH, TSH, GFR, ADIFF #### [address] [address] BUN/Creatinine Ratio 12 ratio Normal 7-27 [facility] Comment on above: Performed By: #### A DINA, CBC, CMP, MORPH, VIDH, TSH, GFR, ADIFF #### [address] [address] Calcium [Mass/Vol] 9.8 mg/dL Normal 8.4-10.2 [facility] Comment on above: Performed By: #### A DINA, CBC, CMP, MORPH, VIDH, TSH, GFR, ADIFF #### [address] [address] Chloride [Moles/Vol] 105 mmol/L Normal 98-107 [facility] Comment on above: Performed By: #### A DINA, CBC, CMP, MORPH, VIDH, TSH, GFR, ADIFF #### [address] [address] CO2 [Moles/Vol] 30 mmol/L Normal 23-31 [facility] Comment on above: Performed By: #### A DINA, CBC, CMP, MORPH, VIDH, TSH, GFR, ADIFF #### [address] [address] Creatinine [Mass/Vol] 1.10 mg/dL High 0.51-0.95 [facility] Comment on above: Performed By: #### A DINA, CBC, CMP, MORPH, VIDH, TSH, GFR, ADIFF #### [address] [address] Electrolyte Balance 7.0 mEq/L Normal 4.0-15.0 [facility] Comment on above: Performed By: #### A DINA, CBC, CMP, MORPH, VIDH, TSH, GFR, ADIFF #### [address] [address] Globulin 3.8 G/dL Normal 2.7-4.4 [facility] Comment on above: Performed By: #### A DINA, CBC, CMP, MORPH, VIDH, TSH, GFR, ADIFF #### [address] [address] Glucose [Mass/Vol] 104 mg/dL Normal 80-115 [facility] Comment on above: Performed By: #### A DINA, CBC, CMP, MORPH, VIDH, TSH, GFR, ADIFF #### [address] [address] Potassium [Moles/Vol] 5.0 mmol/L Normal 3.5-5.1 [facility] Comment on above: Performed By: #### A DINA, CBC, CMP, MORPH, VIDH, TSH, GFR, ADIFF #### [address] [address] Sodium [Moles/Vol] 142 mmol/L Normal 136-145 [facility] Comment on above: Performed By: #### A DINA, CBC, CMP, MORPH, VIDH, TSH, GFR, ADIFF #### [place] [id number] Total Protein 7.8 G/dL Normal 6.4-8.2 [facility] Comment on above: Performed By: #### A DINA, CBC, CMP, MORPH, VIDH, TSH, GFR, ADIFF #### [place] [id number] [place], [place] [address] Urea nitrogen [Mass/Vol] 13 mg/dL Normal 7-18 [facility] Comment on above: Performed By: #### A DINA, CBC, CMP, MORPH, VIDH, TSH, GFR, ADIFF #### [facility] [address] [place], [place] [address] LABORATORYOrdered By: SYSTEM SYSTEM on 09-21-2024 25-hydroxyvitamin D3 [Mass/Vol] 57.7 ng/mL Invalid Interpretation Code AO ADM SS Comment on above: Interpretive Data: I nterpretive Values Based on Total 25(OH) Vitamin D: Deficient <20 ng/mL Insufficient 20 - <30 ng/mL Sufficient 30-100 ng/mL Albumin BCP dye [Mass/Vol] 4.0 G/dL Normal 3.4 - 4.8 G/dL AO ADM SS Albumin/Globulin [Mass ratio] 1.1 {ratio} Normal 1.1 - 2.5 ratio AO ADM SS ALP [Catalytic activity/Vol] 100 U/L Normal 40 - 135 U/L AO ADM SS ALT With P-5'-P [Catalytic activity/Vol] 20 U/L Normal 14 - 59 U/L AO ADM SS AST With P-5'-P [Catalytic activity/Vol] 19 U/L Normal 10 - 40 U/L AO ADM SS Basophils (Bld) [#/Vol] 0.1 103/mcL Normal 0.0 - 0.3 10^3/mcL AO Workflow SS Basophils/100 WBC (Bld) 1.3 % Normal 0.0 - 2.5 % AO Workflow SS Bilirubin [Mass/Vol] 1.4 mg/dL High 0.2 - 1 .0 mg/dL AO ADM SS Comment on above: Interpretive Data: U se of this assay is not recommended for patients undergoing treatment with eltrombopag due to the potential for falsely elevated results. Calcium [Mass/Vol] 9.8 mg/dL Normal 8.4 - 10. 2 mg/dL AO ADM SS Chloride [Moles/Vol] 105 mmol/L Normal 98 - 10 7 mmol/L AO ADM SS CO2 [Moles/Vol] 30 mmol/L Normal 23 - 31 mmol/L AO ADM SS Creatinine [Mass/Vol] 1.10 mg/dL High 0.51 - 0.95 mg/dL AO ADM SS Electrolyte Balance 7.0 mEq/L Normal 4.0 - 15 .0 mEq/L AO ADM SS Eosinophil, Absolute 0.1 103/mcL Normal 0.0 - 0 .7 10^3/mcL AO Workflow SS Eosinophils/100 WBC (Bld) 1.2 % Normal 0.0 - 6.0 % AO Workflow SS Erythrocyte distribution width (RBC) [Ratio] 13.4 % Normal 11.5 - 15.5 % AO Workflow SS Estimated Glomerular Filtration Rate 55 ml/min/1.73sqm Invalid Interpretation Code AO Chemistry S Comment on above: Interpretive Data: Stages of Chronic Kidney Disease (CKD) Stage Description eGFR(ml/min/1.73 sq.m.) CKD 1 Normal kidney function or >=90 normal kindney function with possible kidney damage (ex. Proteinuria) CKD 2 Kidney damage with mild loss 60-89 of kidney function CKD 3a Mild to moderate loss of kidney 45-59 function CKD 3b Moderate to severe loss of 30-44 of kindey function CKD 4 Severe loss of kidney function 15-29 CKD 5 Kidney failure <15 Note: (go live 2024) the eGFR calculation was updated to the 2020 CKD-EPI creatinine equation without a race factor to calculate the eGFR results. Globulin 3.8 G/dL Normal 2.7 - 4.4 G/dL AO ADM SS Glucose [Mass/Vol] 104 mg/dL Normal 80 - 115 mg/dL AO ADM SS Hematocrit (Bld) [Volume fraction] 42.3 % Normal 34.0 - 46.0 % AO Workflow SS Hemoglobin (Bld) [Mass/Vol] 14.8 G/dL Normal 12.0 - 16.0 G/dL AO Workflow SS Lymphocytes (Bld) [#/Vol] 1.7 103/mcL Normal 0.9 - 4.3 10^3/mcL AO Workflow SS Lymphocytes/100 WBC (Bld) 36.0 % Normal 20.0 - 40.0 % AO Workflow SS MCH (RBC) [Entitic mass] 32.0 pg Normal 27.0 - 33.0 pg AO Workflow SS MCHC 35.0 G/dL Normal 32.0 - 36.0 G/dL AO Workflow SS MCV (RBC) [Entitic vol] 91.3 fL Normal 80.0 - 99.0 fL AO Workflow SS Monocytes (Bld) [#/Vol] 0.4 103/mcL Normal 0.1 - 1.4 10^3/mcL AO Workflow SS Monocytes/100 WBC (Bld) 7.7 % Normal 2.0 - 13.0 % AO Workflow SS Neutrophils (Bld) [#/Vol] 2.6 103/mcL Normal 2.3 - 8.1 10^3/mcL AO Workflow SS Neutrophils/100 WBC (Bld) 53.8 % Normal 50.0 - 75.0 % AO Workflow SS Platelet mean volume (Bld) [Entitic vol] 8.3 fL Normal 6.6 - 10.5 fL AO Workflow SS Platelets (Bld) [#/Vol] 245 103/mcL Normal 150 - 450 10^3/mcL AO Workflow SS Potassium [Moles/Vol] 5.0 mmol/L Normal 3.5 - 5.1 mmol/L AO ADM SS Protein [Mass/Vol] 7.8 G/dL Normal 6.4 - 8.2 G/dL AO ADM SS RBC (Bld) [#/Vol] 4.64 106/mcL Normal 4.10 - 5.3 0 10^6/mcL AO Workflow SS Sodium [Moles/Vol] 142 mmol/L Normal 136 - 145 mmol/L AO ADM SS TSH Qn 2.71 m[IU]/L Normal 0.36 - 3.74 mcIU/mL AO ADM SS Urea nitrogen [Mass/Vol] 13 mg/dL Normal 7 - 18 mg/dL AO ADM SS Urea nitrogen/Creatinine [Mass ratio] 12 ratio Normal 7 - 27 ratio AO ADM SS WBC (Bld) [#/Vol] 4.7 103/mcL Normal 4.5 - 10.8 10^3/mcL AO Workflow SS LABORATORYOrdered By: Chaz Roy on 09-21-2024 Platelets LM Ql (Bld) Normal (09/21/24 9:21 AM) Normal AO Hematology S TSHon 09-21-2024 TSH Qn 2.71 m[IU]/L Normal 0.36-3.74 [facility] Comment on above: Performed By: #### A DINA, CBC, CMP, MORPH, VIDH, TSH, GFR, ADIFF #### [place] [id number] [place], [place] [address] VIDHon 09-21-2024 Vit. D 25-Hydroxy 57.7 ng/mL Normal [facility] Comment on above: Result Comment: Inte rpretive Values Based on Total 25(OH) Vitamin D: Deficient <20 ng/mL Insufficient 20 - <30 ng/mL Sufficient 30-100 ng/mL Performed By: #### A DINA, CBC, CMP, MORPH, VIDH, TSH, GFR, ADIFF #### [facility] [address] [place], [place] [address] [employer]plane Flight Attendant Office Visit Reporton 08-21-2024 Airplane Flight Attendant Office Visit Report [facility] [address], [address] [place] [address] OFFICE VISIT Date of Service: 08/21/24 MR#: [id number] Acct: [id number] Name: MARQUIS COBURN Rep #: [id number] : 1955 Provider: ANGELIA fajardo Age/Sex: 69/F Location: 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 Is patient in pain?: No Allergies ibandronate sodium (From Boniva) Allergy (Mild, Verified 08/21/24 08:01) Pain in joints Medications ???Medication ???Instructions ???Recorded ???Confirmed ???Type biotin 2,500 mcg capsule 5,000 mcg PO DAILY 03/22/13 History cholecalciferol (vitamin D3) 50 2,000 unit PO BID 03/22/13 5 History mcg (2,000 unit) tablet (Vitamin D3) npmlpzoh-kxd-bdhll acid 0.4 1 ea PO DAILY 03/22/13 08/21/24 Hi story mg-lycopene 300 mcg-lutein 250 mcg tablet (Centrum Silver) alendronate 70 mg tablet 70 mg PO Q7D@0700 02/13/19 5 History calcium 315 mg (as 1 tab PO DAILY 08/18/23 08/21/24 H istory citrate)-vitamin D3 5 mcg (200 unit) tablet (Calcium Citrate + D) lutein 10 mg tablet 10 mg PO DAILY 08/18/23 08/21/24 H istory potassium citrate 10 mEq (1,080 2,160 mg PO BID 08/18/23 08/21/24 History mg) tablet,extended release antiarthritic combination no.2 900 mg PO 08/21/24 08/21/24 History mg tablet (glucosamine-chondro itin) Is last menstrual period known: No Post menopausal: Yes Patient : No : No PFSH Medical History Kidney stones Surgical History Status post debridement of bone spur History of lithotripsy Social History household members: spouse current occupational status: retired Smoking Status: Never smoker alcohol intake: never substance use type: does not use seatbelt use: always do you feel safe at home: Yes additional social history: - [employer] History 2 Elective abortions Hx Para 2 Spontaneous abortions Hx # Term Pregnancies Ectopic pregnancies Hx # Pregnancies Multiple births # of living children 2 Past Pregnancies Del. Date Name GA/Weeks Outcome Route Bth Weight Infant Gen Labor Lgth Anesthesia Del Locatn Provider FOB Unknown Glynn Unknown Elena HPI Encounter for routine gynecological examination Details: MARQUIS COBURN is a 69 year old who presents for annual exam. Denies concerns Last PAP: NA History of abnormal PAP: no Last mammogram: 10/2023 History of abnormal mammogram: no Colon cancer screenin Other preventative health care screenings: Fabiola Plunkett Female Reproductive History Questions: metorrhagia: No and sexually active: No ROS Const Constitutional: Denies fatigue, weight gain or weight loss Cardio Card: Denies chest pain Resp Resp: Denies cough or dyspnea on exertion GI GI: Denies abdominal pain, bloating, change in stool character, constipation or vomiting : Reports as per HPI; Denies difficulty voiding, pelvic pain, urinary frequency, urinary incontinence, urinary urgency, vaginal discharge or vaginal pruritus Exam Const General: cooperative, healthy appearing, no acute distress and well developed Orientation: alert, oriented to person and oriented to place [facility] Head: normal to inspection Neck Neck: normal visual inspection Thyroid: thyroid normal Lymphatic: no lymphadenopathy noted Chest Breast inspection: normal inspection of the breasts and normal inspection of the axillae Breast palpation: normal palpation of the breasts, normal palpation of the axillae and no axillary lymphadenopathy Resp Effort Inspection: normal respiratory effort GI Palpation: soft, no masses and nontender Rectal Exam: deferred External Female Exam: normal external appearance and normal appearance of the urethra Urethra: normal appearance of the urethra and normal palpation Speculum Exam - Vagina: normal vaginal discharge and vagina atrophic Speculum Exam - Cervix: normal appearance of the cervix Bimanual Exam- Vagina Uterus: normal bimanual exam, uterine size normal, uterine shape normal and non-tender Bimanual Exam- Adnexa, other: normal adnexae, no masses, normal and non-tender Pelvic Support: normal Neuro General: patient alert and patient oriented x3 Psych Affect: normal affect Coding Level of Care Code MC Pelvic/Breast Diagnoses Encounter for gynecological examinatio (more content not included)... Normal [facility] Abdomen Single Viewon 2023 Abdomen Single View [facility] Imaging Services [address] [place] [address] [id number] Abdomen Single View MR#: [id number] Acct: [id number] Name: MARQUIS COBURN Rep #: [id number] : 1955 F 68 From: Hailey Rocha MD PCP: Dr. Rosy Plunkett, DO Status: REG CLI Study: Abdomen Single View Date of Exam: 12/27/23 Exam# [id number] Ordering Dr: Conrad Man MD [id number] INDICATION: KIDNEY STONE EXAMINATION/TECHNIQU E: X-RAY - XR Abdomen 1 View COMPARISON: December 25, 2021 and December 21, 2022 ____ FINDINGS: BOWEL GAS PATTERN: Non-obstructive. No bowel or stomach distention. FREE AIR: Not assessed on a single supine view. ORGANOMEGALY: There are persistent bilateral renal calculi measuring up to 5.3 mm on the right and 10.2 mm on the left. CALCIFICATIONS: No abnormal calcifications observed. LOWER CHEST: No acute pathology. BONES AND SOFT TISSUES: There are degenerative changes of the hips. RAD/Abdomen Single View IMPRESSION: Bilateral renal calculi measuring up to 10.2 mm on the left. Electronically Signed: Hailey Rocha MD at 8:24 EDT , CC: Dr. Conrad Man MD; Dr. Rosy Plunkett DO Photocopy Operator: Signed Normal [facility] SCRN MAMM (CAD)W/RORY BILATo n 11-03-2023 SCRN MAMM (CAD)W/RORY BILAT [facility] Imaging Services [address] [place] [address] SCRN MAMM (CAD)W/RORY BILAT MR#: [id number] Acct: [id number] Name: MARQUIS COBURN Rep #: [id number] : 1955 F 68 From: Taras ribeiro MD PCP: Dr. 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 Routine annual screening examination. PERTINENT HISTORY: Non-contributory. TECHNIQUE: Digital bilateral breast rory (3D mammographic acquisition) in the CC and MLO projections. 2-D mediolateral oblique (MLO) and craniocaudad (CC) views of both breasts were obtained. CAD: Full Field Digital Mammography with Computer Added Detection was performed. COMPARISON: Comparison is made with prior study dated October 15, 2022 and September 16, 2021. FINDINGS: Breast Composition: There are scattered areas of fibroglandular density. There are no dominant masses or suspicious calcifications. Stable bilateral axillary lymph nodes. No other significant abnormalities are identified. There has been no significant change since the prior study. BI/SCRN MAMM (CAD)W/RORY BILAT IMPRESSION: Stable bilateral screening mammogram. Yearly follow-up mammogram recommended. (A) ASSESSMENT CATEGORY: BIRADS Category 2: Benign. A letter regarding these results will be sent to the patient by the facility within 30 days. Approximately 10% of breast cancers are not detected by mammography. A normal mammogram should not delay biopsy of a clinically suspicious abnormality. [id number] Electronically Signed: Taras Steele MD at 10:59 EDT Reading Location ID and State: [facility] / [place] , Service support , CC: ANGELIA Delong; Dr. Rosy Plunkett, Photocopy Operator: Signed Normal [facility] A1Con 09-21-2023 HbA1c (Bld) [Mass fraction] 5.5 % Normal 4.3-6.4 [facility] ([place]) Comment on above: Performed By: #### T SH, VIDH, ANEU, MORPH, CMP, CBC, ADIFF, LIPID, GFR #### [place] [id number] LABORATORYOrdered By: SYSTEM SYSTEM on 09-21-2023 25-hydroxyvitamin D3 [Mass/Vol] 49.4 ng/mL Invalid Interpretation Code AO ADM Comment on above: Interpretive Data: I nterpretive Values Based on Total 25(OH) Vitamin D: Deficient <20 ng/mL Insufficient 20 - <30 ng/mL Sufficient 30-100 ng/mL HbA1c (Bld) [Mass fraction] 5.5 % Normal 4.3 - 6.4 % AO [facility] LABORATORYOrdered By: Roxanne Kendall on 09-21-2023 Cholesterol [Mass/Vol] 199 mg/dL Normal 0 - 200 mg/dL AO [facility] Comment on above: Interpretive Data: C holesterol Reference Interval: Less than 200 Desirable 200-239 Borderline high risk 240 and above High risk Cholesterol in HDL [Mass/Vol] 92 mg/dL High 40 - 60 mg/dL AO [facility] Cholesterol in LDL [Mass/Vol] 94 mg/dL Normal 0 - 130 mg/dL AO [facility] Triglyceride [Mass/Vol] 67 mg/dL Normal 0 - 150 mg/dL AO [facility] Comment on above: Interpretive Data: T riglyceride Reference Interval: Less than 150 Normal 150-199 Borderline high risk 200-499 High risk 500 or higher Very high risk LIPIDon 09-21-2023 Cholesterol [Mass/Vol] 199 mg/dL Normal 0-200 [facility] ([place]) Comment on above: Result Comment: Chol esterol Reference Interval: Less than 200 Desirable 200-239 Borderline high risk 240 and above High risk Performed By: #### T SH, VIDH, ANEU, MORPH, CMP, CBC, ADIFF, LIPID, GFR #### [address] [address] Cholesterol in HDL [Mass/Vol] 92 mg/dL High 40-60 [facility] ([place]) Comment on above: Performed By: #### T SH, VIDH, ANEU, MORPH, CMP, CBC, ADIFF, LIPID, GFR #### [address] [address] Cholesterol in LDL [Mass/Vol] 94 mg/dL Normal 0-130 [facility] ([place]) Comment on above: Performed By: #### T SH, VIDH, ANEU, MORPH, CMP, CBC, ADIFF, LIPID, GFR #### [address] [address] Triglyceride [Mass/Vol] 67 mg/dL Normal 0-150 [facility] ([place]) Comment on above: Result Comment: Trig lyceride Reference Interval: Less than 150 Normal 150-199 Borderline high risk 200-499 High risk 500 or higher Very high risk Performed By: #### T SH, VIDH, ANEU, MORPH, CMP, CBC, ADIFF, LIPID, GFR #### [address] [address] VIDHon 09-21-2023 Vit. D 25-Hydroxy 49.4 ng/mL Normal [facility] ([place]) Comment on above: Result Comment: Inte rpretive Values Based on Total 25(OH) Vitamin D: Deficient <20 ng/mL Insufficient 20 - <30 ng/mL Sufficient 30-100 ng/mL Performed By: #### T SH, VIDH, ANEU, MORPH, CMP, CBC, ADIFF, LIPID, GFR #### [address] [address] .Auto Diffon 09-07-2023 Basophil, Absolute 0.1 10 3/mcL Normal 0.0-0.2 [facility] ([place]) Comment on above: Performed By: #### T SH, VIDH, ANEU, MORPH, CMP, CBC, ADIFF, LIPID, GFR #### [address] [address] Basophils/100 WBC (Bld) 1.0 % Normal 0.0-2.5 [facility] ([place]) Comment on above: Performed By: #### T SH, VIDH, ANEU, MORPH, CMP, CBC, ADIFF, LIPID, GFR #### [address] [address] Eosinophil, Absolute 0.0 10 3/mcL Normal 0.0-0.4 [facility] ([place]) Comment on above: Performed By: #### T SH, VIDH, ANEU, MORPH, CMP, CBC, ADIFF, LIPID, GFR #### [address] [address] Eosinophils/100 WBC (Bld) 0.9 % Normal 0.0-7.0 [facility] ([place]) Comment on above: Performed By: #### T SH, VIDH, ANEU, MORPH, CMP, CBC, ADIFF, LIPID, GFR #### [address] [address] Lymphocyte, Absolute 1.8 10 3/mcL Normal 0.8-3.9 [facility] ([place]) Comment on above: Performed By: #### T SH, VIDH, ANEU, MORPH, CMP, CBC, ADIFF, LIPID, GFR #### [address] [address] Lymphocytes/100 WBC (Bld) 33.4 % Normal 10.0-50.0 [facility] ([place]) Comment on above: Performed By: #### T SH, VIDH, ANEU, MORPH, CMP, CBC, ADIFF, LIPID, GFR #### [address] [address] Monocyte, Absolute 0.3 10 3/mcL Normal 0.2-1.0 [facility] ([place]) Comment on above: Performed By: #### T SH, VIDH, ANEU, MORPH, CMP, CBC, ADIFF, LIPID, GFR #### [address] [address] Monocytes/100 WBC (Bld) 5.9 % Normal 1.7-13.0 [facility] ([place]) Comment on above: Performed By: #### T SH, VIDH, ANEU, MORPH, CMP, CBC, ADIFF, LIPID, GFR #### [address] [address] Neutrophils/100 WBC (Bld) 58.8 % Normal 37.0-80.0 [facility] ([place]) Comment on above: Performed By: #### T SH, VIDH, ANEU, MORPH, CMP, CBC, ADIFF, LIPID, GFR #### [address] [address] .GFRon 09-07-2023 GFR 63 ml/min/1.73sqm Normal [facility] ([place]) Comment on above: Result Comment: GFR Population mean for , Non- Americans Ages 20-29 = 116 mL/min/1.73 sq.m. Ages 30-39 = 107 mL/min/1.73 sq.m. Ages 40-49 = 99 mL/min/1.73 sq.m. Ages 50-59 = 93 mL/min/1.73 sq.m. Ages 60-69 = 85 mL/min/1.73 sq.m. Ages 70+ = 75 mL/min/1.73 sq.m. Chronic Kidney Disease: Less than 60 mL/min/1.73 square meters End Stage Renal Disease: Less than 15 mL/min/1.73 square meters Performed By: #### T SH, VIDH, ANEU, MORPH, CMP, CBC, ADIFF, LIPID, GFR #### [address] [address] GFR Non- 52 ml/min/1.73sqm Normal [facility] ([place]) Comment on above: Result Comment: GFR Population mean for , Non- Americans Ages 20-29 = 116 mL/min/1.73 sq.m. Ages 30-39 = 107 mL/min/1.73 sq.m. Ages 40-49 = 99 mL/min/1.73 sq.m. Ages 50-59 = 93 mL/min/1.73 sq.m. Ages 60-69 = 85 mL/min/1.73 sq.m. Ages 70+ = 75 mL/min/1.73 sq.m. Chronic Kidney Disease: Less than 60 mL/min/1.73 square meters End Stage Renal Disease: Less than 15 mL/min/1.73 square meters Performed By: #### T SH, VIDH, ANEU, MORPH, CMP, CBC, ADIFF, LIPID, GFR #### [address] [address] .NEUABSon 09-07-2023 Neutrophil, Absolute 3.1 10 3/mcL Normal 2.9-6.2 [facility] ([place]) Comment on above: Performed By: #### T SH, VIDH, ANEU, MORPH, CMP, CBC, ADIFF, LIPID, GFR #### [address] [address] ALBon 09-07-2023 Albumin Level 4.0 G/dL Normal 3.4-4.8 [facility] ([place]) Comment on above: Performed By: #### T SH, VIDH, ANEU, MORPH, CMP, CBC, ADIFF, LIPID, GFR #### [address] [address] BMPon 09-07-2023 BUN/Creatinine Ratio 17 ratio Normal 7-27 [facility] ([place]) Comment on above: Performed By: #### T SH, VIDH, ANEU, MORPH, CMP, CBC, ADIFF, LIPID, GFR #### [address] [address] Calcium [Mass/Vol] 9.2 mg/dL Normal 8.4-10.2 [facility] ([place]) Comment on above: Performed By: #### T SH, VIDH, ANEU, MORPH, CMP, CBC, ADIFF, LIPID, GFR #### [address] [address] Chloride [Moles/Vol] 105 mmol/L Normal 98-107 [facility] ([place]) Comment on above: Performed By: #### T SH, VIDH, ANEU, MORPH, CMP, CBC, ADIFF, LIPID, GFR #### [address] [address] CO2 [Moles/Vol] 28 mmol/L Normal 23-31 [facility] ([place]) Comment on above: Performed By: #### T SH, VIDH, ANEU, MORPH, CMP, CBC, ADIFF, LIPID, GFR #### [address] [address] Creatinine [Mass/Vol] 1.05 mg/dL High 0.55-1.02 [facility] ([place]) Comment on above: Performed By: #### T SH, VIDH, ANEU, MORPH, CMP, CBC, ADIFF, LIPID, GFR #### [address] [address] Electrolyte Balance 12.0 mEq/L Normal 4.0-15.0 [facility] ([place]) Comment on above: Performed By: #### T SH, VIDH, ANEU, MORPH, CMP, CBC, ADIFF, LIPID, GFR #### [address] [address] Glucose [Mass/Vol] 107 mg/dL Normal 80-115 [facility] ([place]) Comment on above: Performed By: #### T SH, VIDH, ANEU, MORPH, CMP, CBC, ADIFF, LIPID, GFR #### [address] [address] Potassium [Moles/Vol] 3.8 mmol/L Normal 3.5-5.1 [facility] ([place]) Comment on above: Performed By: #### T SH, VIDH, ANEU, MORPH, CMP, CBC, ADIFF, LIPID, GFR #### [address] [address] Sodium [Moles/Vol] 145 mmol/L Normal 136-145 [facility] ([place]) Comment on above: Performed By: #### T SH, VIDH, ANEU, MORPH, CMP, CBC, ADIFF, LIPID, GFR #### [address] [address] Urea nitrogen [Mass/Vol] 18 mg/dL Normal 7-18 [facility] ([place]) Comment on above: Performed By: #### T SH, VIDH, ANEU, MORPH, CMP, CBC, ADIFF, LIPID, GFR #### [address] [address] CBCon 09-07-2023 Erythrocyte distribution width (RBC) [Ratio] 13.5 % Normal 11.5-14.5 [facility] ([place]) Comment on above: Performed By: #### C BC, GFR, ADIFF, ANEU, BMP, ALB #### [address] [address] Hematocrit (Bld) [Volume fraction] 40.3 % Normal 37.0-47.0 [facility] ([place]) Comment on above: Performed By: #### C BC, GFR, ADIFF, ANEU, BMP, ALB #### [address] [address] Hgb 14.4 G/dL Normal 12.0-16.0 [facility] ([place]) Comment on above: Performed By: #### C BC, GFR, ADIFF, ANEU, BMP, ALB #### [address] [address] MCH (RBC) [Entitic mass] 33.6 pg High 27.0-31.2 [facility] ([place]) Comment on above: Performed By: #### C BC, GFR, ADIFF, ANEU, BMP, ALB #### [place] [address] MCHC 35.8 G/dL Normal 33.0-37.0 [facility] ([place]) Comment on above: Performed By: #### C BC, GFR, ADIFF, ANEU, BMP, ALB #### [place] [address] MCV (RBC) [Entitic vol] 93.8 fL Normal 80.0-94.0 [facility] ([place]) Comment on above: Performed By: #### C BC, GFR, ADIFF, ANEU, BMP, ALB #### [place] [address] Platelet 270 10 3/mcL Normal 130-400 [facility] ([place]) Comment on above: Performed By: #### C BC, GFR, ADIFF, ANEU, BMP, ALB #### [place] [address] Platelet mean volume (Bld) [Entitic vol] 7.8 fL Normal 7.4-10.4 [facility] ([place]) Comment on above: Performed By: #### C BC, GFR, ADIFF, ANEU, BMP, ALB #### [place] [id number] RBC 4.29 10 6/mcL Normal 4.20-5.40 [facility] ([place]) Comment on above: Performed By: #### C BC, GFR, ADIFF, ANEU, BMP, ALB #### [facility] [address] [place], [place] [address] WBC 5.3 10 3/mcL Normal 4.6-10.8 [facility] ([place]) Comment on above: Performed By: #### C BC, GFR, ADIFF, ANEU, BMP, ALB #### [place] [id number] [place], [place] [address] CT KNEE W/O CONTRAST LEFTon 09-07-2023 CT KNEE W/O CONTRAST LEFT ORIGINAL EXAMINATION: CT OF THE LEFT KNEE WITHOUT CONTRAST 09/07/2023 9:53 am TECHNIQUE: CT of the left knee was performed without the administration of intravenous contrast. Multiplanar reformatted images are provided for review. Automated exposure control, iterative reconstruction, and/or weight based adjustment of the mA/kV was utilized to reduce the radiation dose to as low as reasonably achievable. COMPARISON: None. HISTORY ORDERING SYSTEM PROVIDED HISTORY: Reason for Exam: UNILATERL OSTEOARTHRITIS OF THE LEFT KNEE FINDINGS: Survey images of the left hip: No aggressive bony lesion. Sclerosis seen at the symphysis pubis. Mild degenerative changes noted in left hip. Left knee: Prominent tricompartmental degenerative changes are identified. The joint effusion noted. There are calcified intra-articular bodies most severe in the anterior joint recess. Survey images of the ankle: Calcaneal enthesophytes. No aggressive bony lesions. IMPRESSION: Prominent tricompartmental degenerative changes in the left knee with joint effusion and intra-articular bodies. Interpreted by: Serg Bradley MD Preliminary Report By: Serg Bradley MD Electronically signed By Serg Bradley MD Dictated Date: 09/07/2023 11:49:50 AM Prelim Date: 09/07/2023 11:53:31 AM Sign Date: 09/07/2023 11:53:31 AM Ordering Provider: XIMENA Capellan [facility] ([place]) LABORATORYOrdered By: SYSTEM SYSTEM on 09-07-2023 Albumin BCP dye [Mass/Vol] 4.0 G/dL Normal 3.4 - 4.8 G/dL AO ADM SS Basophil, Absolute 0.1 103/mcL Normal 0.0 - 0.2 10^3/mcL AO Workflow SS Basophils/100 WBC (Bld) 1.0 % Normal 0.0 - 2.5 % AO Workflow SS Calcium [Mass/Vol] 9.2 mg/dL Normal 8.4 - 10. 2 mg/dL AO ADM SS Chloride [Moles/Vol] 105 mmol/L Normal 98 - 10 7 mmol/L AO ADM SS CO2 [Moles/Vol] 28 mmol/L Normal 23 - 31 mmol/L AO ADM SS Creatinine [Mass/Vol] 1.05 mg/dL High 0.55 - 1.02 mg/dL AO ADM SS Electrolyte Balance 12.0 mEq/L Normal 4.0 - 15 .0 mEq/L AO ADM SS Eosinophil, Absolute 0.0 103/mcL Normal 0.0 - 0 .4 10^3/mcL AO Workflow SS Eosinophils/100 WBC (Bld) 0.9 % Normal 0.0 - 7.0 % AO Workflow SS Erythrocyte distribution width (RBC) [Ratio] 13.5 % Normal 11.5 - 14.5 % AO Workflow SS GFR/1.73 sq M.predicted among blacks MDRD (S/P/Bld) [Vol rate/Area] 63 ml/min/1.73sqm Invalid Interpretation Code AO Chemistry S Comment on above: Interpretive Data: GFR Population mean for , Non- Americans Ages 20-29 = 116 mL/min/1.73 sq.m. Ages 30-39 = 107 mL/min/1.73 sq.m. Ages 40-49 = 99 mL/min/1.73 sq.m. Ages 50-59 = 93 mL/min/1.73 sq.m. Ages 60-69 = 85 mL/min/1.73 sq.m. Ages 70+ = 75 mL/min/1.73 sq.m. Chronic Kidney Disease: Less than 60 mL/min/1.73 square meters End Stage Renal Disease: Less than 15 mL/min/1.73 square meters GFR/1.73 sq M.predicted among non-blacks MDRD (S/P/Bld) [Vol rate/Area] 52 ml/min/1.73sqm Invalid Interpretation Code AO Chemistry S Comment on above: Interpretive Data: GFR Population mean for , Non- Americans Ages 20-29 = 116 mL/min/1.73 sq.m. Ages 30-39 = 107 mL/min/1.73 sq.m. Ages 40-49 = 99 mL/min/1.73 sq.m. Ages 50-59 = 93 mL/min/1.73 sq.m. Ages 60-69 = 85 mL/min/1.73 sq.m. Ages 70+ = 75 mL/min/1.73 sq.m. Chronic Kidney Disease: Less than 60 mL/min/1.73 square meters End Stage Renal Disease: Less than 15 mL/min/1.73 square meters Glucose [Mass/Vol] 107 mg/dL Normal 80 - 115 mg/dL AO ADM SS Hematocrit (Bld) [Volume fraction] 40.3 % Normal 37.0 - 47.0 % AO Workflow SS Hemoglobin (Bld) [Mass/Vol] 14.4 G/dL Normal 12.0 - 16.0 G/dL AO Workflow SS Lymphocyte, Absolute 1.8 103/mcL Normal 0.8 - 3 .9 10^3/mcL AO Workflow SS Lymphocytes/100 WBC (Bld) 33.4 % Normal 10.0 - 50.0 % AO Workflow SS MCH (RBC) [Entitic mass] 33.6 pg High 27.0 - 31.2 pg AO Workflow SS MCHC 35.8 G/dL Normal 33.0 - 37.0 G/dL AO Workflow SS MCV (RBC) [Entitic vol] 93.8 fL Normal 80.0 - 94.0 fL AO Workflow SS Monocyte, Absolute 0.3 103/mcL Normal 0.2 - 1.0 10^3/mcL AO Workflow SS Monocytes/100 WBC (Bld) 5.9 % Normal 1.7 - 13.0 % AO Workflow SS Neutrophil, Absolute 3.1 103/mcL Normal 2.9 - 6 .2 10^3/mcL AO Workflow SS Neutrophils/100 WBC (Bld) 58.8 % Normal 37.0 - 80.0 % AO Workflow SS Platelet mean volume (Bld) [Entitic vol] 7.8 fL Normal 7.4 - 10.4 fL AO Workflow SS Platelets (Bld) [#/Vol] 270 103/mcL Normal 130 - 400 10^3/mcL AO Workflow SS Potassium [Moles/Vol] 3.8 mmol/L Normal 3.5 - 5.1 mmol/L AO ADM SS RBC (Bld) [#/Vol] 4.29 106/mcL Normal 4.20 - 5.4 0 10^6/mcL AO Workflow SS Sodium [Moles/Vol] 145 mmol/L Normal 136 - 145 mmol/L AO ADM SS Urea nitrogen [Mass/Vol] 18 mg/dL Normal 7 - 18 mg/dL AO ADM SS Urea nitrogen/Creatinine [Mass ratio] 17 ratio Normal 7 - 27 ratio AO ADM SS WBC (Bld) [#/Vol] 5.3 103/mcL Normal 4.6 - 10.8 10^3/mcL AO Workflow SS .Auto Diffon 10-13-2022 Basophil, Absolute 0.1 10 3/mcL Normal 0.0-0.2 [facility] ([place]) Comment on above: Performed By: #### T SH, VIDH, ANEU, MORPH, CMP, CBC, ADIFF, LIPID, GFR #### [address] [address] Basophils/100 WBC (Bld) 1.4 % Normal 0.0-2.5 [facility] ([place]) Comment on above: Performed By: #### T SH, VIDH, ANEU, MORPH, CMP, CBC, ADIFF, LIPID, GFR #### [address] [address] Eosinophil, Absolute 0.1 10 3/mcL Normal 0.0-0.4 [facility] ([place]) Comment on above: Performed By: #### T SH, VIDH, ANEU, MORPH, CMP, CBC, ADIFF, LIPID, GFR #### [address] [address] Eosinophils/100 WBC (Bld) 2.1 % Normal 0.0-7.0 [facility] ([place]) Comment on above: Performed By: #### T SH, VIDH, ANEU, MORPH, CMP, CBC, ADIFF, LIPID, GFR #### [address] [address] Lymphocyte, Absolute 1.9 10 3/mcL Normal 0.8-3.9 [facility] ([place]) Comment on above: Performed By: #### T SH, VIDH, ANEU, MORPH, CMP, CBC, ADIFF, LIPID, GFR #### [address] [address] Lymphocytes/100 WBC (Bld) 41.8 % Normal 10.0-50.0 [facility] ([place]) Comment on above: Performed By: #### T SH, VIDH, ANEU, MORPH, CMP, CBC, ADIFF, LIPID, GFR #### [address] [address] Monocyte, Absolute 0.4 10 3/mcL Normal 0.2-1.0 [facility] ([place]) Comment on above: Performed By: #### T SH, VIDH, ANEU, MORPH, CMP, CBC, ADIFF, LIPID, GFR #### [address] [address] Monocytes/100 WBC (Bld) 9.1 % Normal 1.7-13.0 [facility] ([place]) Comment on above: Performed By: #### T SH, VIDH, ANEU, MORPH, CMP, CBC, ADIFF, LIPID, GFR #### [address] [address] Neutrophils/100 WBC (Bld) 45.6 % Normal 37.0-80.0 [facility] ([place]) Comment on above: Performed By: #### T SH, VIDH, ANEU, MORPH, CMP, CBC, ADIFF, LIPID, GFR #### [address] [address] .GFRon 10-13-2022 GFR 63 ml/min/1.73sqm Normal [facility] ([place]) Comment on above: Result Comment: GFR Population mean for , Non- Americans Ages 20-29 = 116 mL/min/1.73 sq.m. Ages 30-39 = 107 mL/min/1.73 sq.m. Ages 40-49 = 99 mL/min/1.73 sq.m. Ages 50-59 = 93 mL/min/1.73 sq.m. Ages 60-69 = 85 mL/min/1.73 sq.m. Ages 70+ = 75 mL/min/1.73 sq.m. Chronic Kidney Disease: Less than 60 mL/min/1.73 square meters End Stage Renal Disease: Less than 15 mL/min/1.73 square meters Performed By: #### T SH, VIDH, ANEU, MORPH, CMP, CBC, ADIFF, LIPID, GFR #### [address] [address] GFR Non- 52 ml/min/1.73sqm Normal [facility] ([place]) Comment on above: Result Comment: GFR Population mean for , Non- Americans Ages 20-29 = 116 mL/min/1.73 sq.m. Ages 30-39 = 107 mL/min/1.73 sq.m. Ages 40-49 = 99 mL/min/1.73 sq.m. Ages 50-59 = 93 mL/min/1.73 sq.m. Ages 60-69 = 85 mL/min/1.73 sq.m. Ages 70+ = 75 mL/min/1.73 sq.m. Chronic Kidney Disease: Less than 60 mL/min/1.73 square meters End Stage Renal Disease: Less than 15 mL/min/1.73 square meters Performed By: #### T SH, VIDH, ANEU, MORPH, CMP, CBC, ADIFF, LIPID, GFR #### [address] [address] .Morphon 10-13-2022 Platelet Estimate Normal Normal [facility]) Comment on above: Performed By: #### T SH, VIDH, ANEU, MORPH, CMP, CBC, ADIFF, LIPID, GFR #### [address] [address] .NEUABSon 10-13-2022 Neutrophil, Absolute 2.1 10 3/mcL Low 2.9-6.2 [facility] ([place]) Comment on above: Performed By: #### T SH, VIDH, ANEU, MORPH, CMP, CBC, ADIFF, LIPID, GFR #### [address] [address] CBCon 10-13-2022 Erythrocyte distribution width (RBC) [Ratio] 13.7 % Normal 11.5-14.5 [facility] ([place]) Comment on above: Performed By: #### T SH, VIDH, ANEU, MORPH, CMP, CBC, ADIFF, LIPID, GFR #### [address] [address] Hematocrit (Bld) [Volume fraction] 42.7 % Normal 37.0-47.0 [facility] ([place]) Comment on above: Performed By: #### T SH, VIDH, ANEU, MORPH, CMP, CBC, ADIFF, LIPID, GFR #### [place] [id number] Hgb 14.6 G/dL Normal 12.0-16.0 [facility] ([place]) Comment on above: Performed By: #### T SH, VIDH, ANEU, MORPH, CMP, CBC, ADIFF, LIPID, GFR #### [place] [id number] MCH (RBC) [Entitic mass] 30.6 pg Normal 27.0-31.2 [facility] ([place]) Comment on above: Performed By: #### T SH, VIDH, ANEU, MORPH, CMP, CBC, ADIFF, LIPID, GFR #### [address] [address] MCHC 34.1 G/dL Normal 33.0-37.0 [facility] ([place] Comment on above: Performed By: #### T SH, VIDH, ANEU, MORPH, CMP, CBC, ADIFF, LIPID, GFR #### [address] [address] MCV (RBC) [Entitic vol] 89.8 fL Normal 80.0-94.0 [facility] ([place]) Comment on above: Performed By: #### T SH, VIDH, ANEU, MORPH, CMP, CBC, ADIFF, LIPID, GFR #### [address] [address] Platelet 283 10 3/mcL Normal 130-400 [facility] ([place]) Comment on above: Performed By: #### T SH, VIDH, ANEU, MORPH, CMP, CBC, ADIFF, LIPID, GFR #### [place] [phone] Platelet mean volume (Bld) [Entitic vol] 7.9 fL Normal 7.4-10.4 [facility] ([place]) Comment on above: Performed By: #### T SH, VIDH, ANEU, MORPH, CMP, CBC, ADIFF, LIPID, GFR #### [address] [address] RBC 4.76 10 6/mcL Normal 4.20-5.40 [facility] ([place]) Comment on above: Performed By: #### T SH, VIDH, ANEU, MORPH, CMP, CBC, ADIFF, LIPID, GFR #### [address] [address] WBC 4.6 10 3/mcL Normal 4.6-10.8 [facility] ([place]) Comment on above: Performed By: #### T SH, VIDH, ANEU, MORPH, CMP, CBC, ADIFF, LIPID, GFR #### [address] [address] CMPon 10-13-2022 Albumin Level 2.5 G/dL Low 3.4-4.8 [facility] ([place]) Comment on above: Performed By: #### T SH, VIDH, ANEU, MORPH, CMP, CBC, ADIFF, LIPID, GFR #### [address] [address] Albumin/Globulin [Mass ratio] 0.5 {ratio} Low 1.1-2.5 [facility]) Comment on above: Performed By: #### T SH, VIDH, ANEU, MORPH, CMP, CBC, ADIFF, LIPID, GFR #### [address] [address] ALP [Catalytic activity/Vol] 96 U/L Normal 40-135 [facility] ([place]) Comment on above: Performed By: #### T SH, VIDH, ANEU, MORPH, CMP, CBC, ADIFF, LIPID, GFR #### [address] [address] ALT [Catalytic activity/Vol] 18 U/L Normal 14-59 [facility] ([place]) Comment on above: Performed By: #### T SH, VIDH, ANEU, MORPH, CMP, CBC, ADIFF, LIPID, GFR #### [address] [address] AST [Catalytic activity/Vol] 13 U/L Normal 10-40 [facility] ([place]) Comment on above: Performed By: #### T SH, VIDH, ANEU, MORPH, CMP, CBC, ADIFF, LIPID, GFR #### [address] [address] Bili Total 1.2 mg/dL High 0.2-1.0 [facility] ([place]) Comment on above: Result Comment: Use of this assay is not recommended for patients undergoing treatment with eltrombopag due to the potential for falsely elevated results. Performed By: #### T SH, VIDH, ANEU, MORPH, CMP, CBC, ADIFF, LIPID, GFR #### [address] [address] BUN/Creatinine Ratio 11 ratio Normal 7-27 [facility] ([place]) Comment on above: Performed By: #### T SH, VIDH, ANEU, MORPH, CMP, CBC, ADIFF, LIPID, GFR #### [address] [address] Calcium [Mass/Vol] 9.5 mg/dL Normal 8.4-10.2 [facility] ([place]) Comment on above: Performed By: #### T SH, VIDH, ANEU, MORPH, CMP, CBC, ADIFF, LIPID, GFR #### [address] [address] Chloride [Moles/Vol] 102 mmol/L Normal 98-107 [facility] ([place]) Comment on above: Performed By: #### T SH, VIDH, ANEU, MORPH, CMP, CBC, ADIFF, LIPID, GFR #### [address] [address] CO2 [Moles/Vol] 32 mmol/L High 23-31 [facility] ([place]) Comment on above: Performed By: #### T SH, VIDH, ANEU, MORPH, CMP, CBC, ADIFF, LIPID, GFR #### [address] [address] Creatinine [Mass/Vol] 1.06 mg/dL High 0.55-1.02 [facility] ([place]) Comment on above: Performed By: #### T SH, VIDH, ANEU, MORPH, CMP, CBC, ADIFF, LIPID, GFR #### [address] [address] Electrolyte Balance 5.0 mEq/L Normal 4.0-15.0 [facility] ([place]) Comment on above: Performed By: #### T SH, VIDH, ANEU, MORPH, CMP, CBC, ADIFF, LIPID, GFR #### [address] [address] Globulin 4.7 G/dL Normal [facility] ([place]) Comment on above: Performed By: #### T SH, VIDH, ANEU, MORPH, CMP, CBC, ADIFF, LIPID, GFR #### [address] [address] Glucose [Mass/Vol] 95 mg/dL Normal 80-115 [facility] ([place]) Comment on above: Performed By: #### T SH, VIDH, ANEU, MORPH, CMP, CBC, ADIFF, LIPID, GFR #### [address] [address] Potassium [Moles/Vol] 4.3 mmol/L Normal 3.5-5.1 [facility] ([place]) Comment on above: Performed By: #### T SH, VIDH, ANEU, MORPH, CMP, CBC, ADIFF, LIPID, GFR #### [address] [address] Sodium [Moles/Vol] 139 mmol/L Normal 136-145 [facility] ([place]) Comment on above: Performed By: #### T SH, VIDH, ANEU, MORPH, CMP, CBC, ADIFF, LIPID, GFR #### [address] [address] Total Protein 7.2 G/dL Normal 6.4-8.2 [facility] ([place]) Comment on above: Performed By: #### T SH, VIDH, ANEU, MORPH, CMP, CBC, ADIFF, LIPID, GFR #### [address] [address] Urea nitrogen [Mass/Vol] 12 mg/dL Normal 7-18 [facility] ([place]) Comment on above: Performed By: #### T SH, VIDH, ANEU, MORPH, CMP, CBC, ADIFF, LIPID, GFR #### [address] [address] LABORATORYOrdered By: SYSTEM SYSTEM on 10-13-2022 25-hydroxyvitamin D3 [Mass/Vol] 55.8 ng/mL Invalid Interpretation Code AO ADM SS Comment on above: Interpretive Data: I nterpretive Values Based on Total 25(OH) Vitamin D: Deficient <20 ng/mL Insufficient 20 - <30 ng/mL Sufficient 30-100 ng/mL Albumin BCP dye [Mass/Vol] 2.5 G/dL Invalid Interpretation Code 3.4 - 4.8 G/dL AO ADM SS Albumin/Globulin [Mass ratio] 0.5 {ratio} Invalid Interpretation Code 1.1 - 2.5 ratio AO ADM SS ALP [Catalytic activity/Vol] 96 U/L Invalid Interpretation Code 40 - 135 U/L AO ADM SS ALT With P-5'-P [Catalytic activity/Vol] 18 U/L Invalid Interpretation Code 14 - 59 U/L AO ADM SS AST With P-5'-P [Catalytic activity/Vol] 13 U/L Invalid Interpretation Code 10 - 40 U/L AO ADM SS Basophil, Absolute 0.1 103/mcL Invalid Interpretation Code 0.0 - 0.2 10^3/mcL AO Workflow SS Basophils/100 WBC (Bld) 1.4 % Invalid Interpretation Code 0.0 - 2.5 % AO Workflow SS Bilirubin [Mass/Vol] 1.2 mg/dL Invalid Interpretation Code 0.2 - 1.0 mg/dL AO ADM SS Comment on above: Interpretive Data: U se of this assay is not recommended for patients undergoing treatment with eltrombopag due to the potential for falsely elevated results. Calcium [Mass/Vol] 9.5 mg/dL Invalid Interpretation Code 8.4 - 10.2 mg/dL AO ADM SS Chloride [Moles/Vol] 102 mmol/L Invalid Interpretation Code 98 - 107 mmol/L AO ADM SS CO2 [Moles/Vol] 32 mmol/L Invalid Interpretation Code 23 - 31 mmol/L AO ADM SS Creatinine [Mass/Vol] 1.06 mg/dL Invalid Interpretation Code 0.55 - 1.02 mg/dL AO ADM SS Electrolyte Balance 5.0 mEq/L Invalid Interpretation Code 4.0 - 15.0 mEq/L AO ADM SS Eosinophil, Absolute 0.1 103/mcL Invalid Interpretation Code 0.0 - 0.4 10^3/mcL AO Workflow SS Eosinophils/100 WBC (Bld) 2.1 % Invalid Interpretation Code 0.0 - 7.0 % AO Workflow SS Erythrocyte distribution width (RBC) [Ratio] 13.7 % Invalid Interpretation Code 11.5 - 14.5 % AO Workflow SS GFR/1.73 sq M.predicted among blacks MDRD (S/P/Bld) [Vol rate/Area] 63 ml/min/1.73sqm Invalid Interpretation Code AO Chemistry S Comment on above: Interpretive Data: GFR Population mean for , Non- Americans Ages 20-29 = 116 mL/min/1.73 sq.m. Ages 30-39 = 107 mL/min/1.73 sq.m. Ages 40-49 = 99 mL/min/1.73 sq.m. Ages 50-59 = 93 mL/min/1.73 sq.m. Ages 60-69 = 85 mL/min/1.73 sq.m. Ages 70+ = 75 mL/min/1.73 sq.m. Chronic Kidney Disease: Less than 60 mL/min/1.73 square meters End Stage Renal Disease: Less than 15 mL/min/1.73 square meters GFR/1.73 sq M.predicted among non-blacks MDRD (S/P/Bld) [Vol rate/Area] 52 ml/min/1.73sqm Invalid Interpretation Code AO Chemistry S Comment on above: Interpretive Data: GFR Population mean for , Non- Americans Ages 20-29 = 116 mL/min/1.73 sq.m. Ages 30-39 = 107 mL/min/1.73 sq.m. Ages 40-49 = 99 mL/min/1.73 sq.m. Ages 50-59 = 93 mL/min/1.73 sq.m. Ages 60-69 = 85 mL/min/1.73 sq.m. Ages 70+ = 75 mL/min/1.73 sq.m. Chronic Kidney Disease: Less than 60 mL/min/1.73 square meters End Stage Renal Disease: Less than 15 mL/min/1.73 square meters Globulin 4.7 G/dL Invalid Interpretation Code AO ADM SS Glucose [Mass/Vol] 95 mg/dL Invalid Interpretation Code 80 - 115 mg/dL AO ADM SS Hematocrit (Bld) [Volume fraction] 42.7 % Invalid Interpretation Code 37.0 - 47.0 % AO Workflow SS Hemoglobin (Bld) [Mass/Vol] 14.6 G/dL Invalid Interpretation Code 12.0 - 16.0 G/dL AO Workflow SS Lymphocyte, Absolute 1.9 103/mcL Invalid Interpretation Code 0.8 - 3.9 10^3/mcL AO Workflow SS Lymphocytes/100 WBC (Bld) 41.8 % Invalid Interpretation Code 10.0 - 50.0 % AO Workflow SS MCH (RBC) [Entitic mass] 30.6 pg Invalid Interpretation Code 27.0 - 31.2 pg AO Workflow SS MCHC 34.1 G/dL Invalid Interpretation Code 33.0 - 37.0 G/dL AO Workflow SS MCV (RBC) [Entitic vol] 89.8 fL Invalid Interpretation Code 80.0 - 94.0 fL AO Workflow SS Monocyte, Absolute 0.4 103/mcL Invalid Interpretation Code 0.2 - 1.0 10^3/mcL AO Workflow SS Monocytes/100 WBC (Bld) 9.1 % Invalid Interpretation Code 1.7 - 13.0 % AO Workflow SS Neutrophil, Absolute 2.1 103/mcL Invalid Interpretation Code 2.9 - 6.2 10^3/mcL AO Workflow SS Neutrophils/100 WBC (Bld) 45.6 % Invalid Interpretation Code 37.0 - 80.0 % AO Workflow SS Platelet mean volume (Bld) [Entitic vol] 7.9 fL Invalid Interpretation Code 7.4 - 10.4 fL AO Workflow SS Platelets (Bld) [#/Vol] 283 103/mcL Invalid Interpretation Code 130 - 400 10^3/mcL AO Workflow SS Potassium [Moles/Vol] 4.3 mmol/L Invalid Interpretation Code 3.5 - 5.1 mmol/L AO ADM SS Protein [Mass/Vol] 7.2 G/dL Invalid Interpretation Code 6.4 - 8.2 G/dL AO ADM SS RBC (Bld) [#/Vol] 4.76 106/mcL Invalid Interpretation Code 4.20 - 5.40 10^6/mcL AO Workflow SS Sodium [Moles/Vol] 139 mmol/L Invalid Interpretation Code 136 - 145 mmol/L AO ADM SS TSH Qn 3.11 m[IU]/L Invalid Interpretation Code 0.36 - 3.74 mcIU/mL AO ADM SS Urea nitrogen [Mass/Vol] 12 mg/dL Invalid Interpretation Code 7 - 18 mg/dL AO ADM SS Urea nitrogen/Creatinine [Mass ratio] 11 ratio Invalid Interpretation Code 7 - 27 ratio AO ADM SS WBC (Bld) [#/Vol] 4.6 103/mcL Invalid Interpretation Code 4.6 - 10.8 10^3/mcL AO Workflow SS LABORATORYOrdered By: Yahaira Leong on 10-13-2022 Cholesterol [Mass/Vol] 208 mg/dL Invalid Interpretation Code 0 - 200 mg/dL AO ADM SS Comment on above: Interpretive Data: C holesterol Reference Interval: Less than 200 Desirable 200-239 Borderline high risk 240 and above High risk Cholesterol in HDL [Mass/Vol] 97 mg/dL Invalid Interpretation Code 40 - 60 mg/dL AO ADM SS Cholesterol in LDL [Mass/Vol] 96 mg/dL Invalid Interpretation Code 0 - 130 mg/dL AO ADM SS Triglyceride [Mass/Vol] 77 mg/dL Invalid Interpretation Code 0 - 150 mg/dL AO ADM SS Comment on above: Interpretive Data: T riglyceride Reference Interval: Less than 150 Normal 150-199 Borderline high risk 200-499 High risk 500 or higher Very high risk LABORATORYOrdered By: Alex Higgins on 10-13-2022 Platelet Estimate Normal (10/13/22 7:05 AM) Invalid Interpretation Code AO Hematology S LIPIDon 10-13-2022 Cholesterol [Mass/Vol] 208 mg/dL High 0-200 [facility] ([place]) Comment on above: Result Comment: Chol esterol Reference Interval: Less than 200 Desirable 200-239 Borderline high risk 240 and above High risk Performed By: #### T SH, VIDH, ANEU, MORPH, CMP, CBC, ADIFF, LIPID, GFR #### [place] [id number] [place], [place] [address] Cholesterol in HDL [Mass/Vol] 97 mg/dL High 40-60 [facility] ([place]) Comment on above: Performed By: #### T SH, VIDH, ANEU, MORPH, CMP, CBC, ADIFF, LIPID, GFR #### [address] [address] Cholesterol in LDL [Mass/Vol] 96 mg/dL Normal 0-130 [facility] ([place]) Comment on above: Performed By: #### T SH, VIDH, ANEU, MORPH, CMP, CBC, ADIFF, LIPID, GFR #### [address] [address] Triglyceride [Mass/Vol] 77 mg/dL Normal 0-150 [facility] ([place]) Comment on above: Result Comment: Trig lyceride Reference Interval: Less than 150 Normal 150-199 Borderline high risk 200-499 High risk 500 or higher Very high risk Performed By: #### T SH, VIDH, ANEU, MORPH, CMP, CBC, ADIFF, LIPID, GFR #### [place] [phone] TSHon 10-13-2022 TSH Qn 3.11 m[IU]/L Normal 0.36-3.74 [facility] ([place]) Comment on above: Performed By: #### T SH, VIDH, ANEU, MORPH, CMP, CBC, ADIFF, LIPID, GFR #### [address] [address] VIDHon 10-13-2022 Vit. D 25-Hydroxy 55.8 ng/mL Normal [facility] ([place]) Comment on above: Result Comment: Inte rpretive Values Based on Total 25(OH) Vitamin D: Deficient <20 ng/mL Insufficient 20 - <30 ng/mL Sufficient 30-100 ng/mL Performed By: #### T SH, VIDH, ANEU, MORPH, CMP, CBC, ADIFF, LIPID, GFR #### [place] [address] LABORATORYOrdered By: SYSTEM SYSTEM on 06-26-2022 Creatinine [Mass/Vol] 1.05 mg/dL Invalid Interpretation Code 0.55 - 1.02 mg/dL AO ADM SS GFR/1.73 sq M.predicted among blacks MDRD (S/P/Bld) [Vol rate/Area] 64 ml/min/1.73sqm Invalid Interpretation Code AO Chemistry S GFR/1.73 sq M.predicted among non-blacks MDRD (S/P/Bld) [Vol rate/Area] 53 ml/min/1.73sqm Invalid Interpretation Code AO Chemistry S LABORATORYOrdered By: Shaina Flannery on 02-18-2022 Albumin BCP dye [Mass/Vol] 4.0 G/dL Invalid Interpretation Code 3.4 - 4.8 G/dL AO ADM SS Albumin/Globulin [Mass ratio] 1.3 {ratio} Invalid Interpretation Code 1.1 - 2.5 ratio AO ADM SS ALP [Catalytic activity/Vol] 105 U/L Invalid Interpretation Code 40 - 135 U/L AO ADM SS ALT With P-5'-P [Catalytic activity/Vol] 22 U/L Invalid Interpretation Code 14 - 59 U/L AO ADM SS AST With P-5'-P [Catalytic activity/Vol] 19 U/L Invalid Interpretation Code 10 - 40 U/L AO ADM SS Bilirubin [Mass/Vol] 1.1 mg/dL Invalid Interpretation Code 0.2 - 1.0 mg/dL AO ADM SS Calcium [Mass/Vol] 9.5 mg/dL Invalid Interpretation Code 8.4 - 10.2 mg/dL AO ADM SS Chloride [Moles/Vol] 106 mmol/L Invalid Interpretation Code 98 - 107 mmol/L AO ADM SS CO2 [Moles/Vol] 31 mmol/L Invalid Interpretation Code 23 - 31 mmol/L AO ADM SS Creatinine [Mass/Vol] 1.00 mg/dL Invalid Interpretation Code 0.55 - 1.02 mg/dL AO ADM SS Electrolyte Balance 6.0 mEq/L Invalid Interpretation Code 4.0 - 15.0 mEq/L AO ADM SS Globulin 3.1 G/dL Invalid Interpretation Code AO ADM SS Glucose [Mass/Vol] 91 mg/dL Invalid Interpretation Code 80 - 115 mg/dL AO ADM SS Potassium [Moles/Vol] 4.4 mmol/L Invalid Interpretation Code 3.5 - 5.1 mmol/L AO ADM SS Protein [Mass/Vol] 7.1 G/dL Invalid Interpretation Code 6.4 - 8.2 G/dL AO ADM SS Sodium [Moles/Vol] 143 mmol/L Invalid Interpretation Code 136 - 145 mmol/L AO ADM SS Urea nitrogen [Mass/Vol] 14 mg/dL Invalid Interpretation Code 7 - 18 mg/dL AO ADM SS Urea nitrogen/Creatinine [Mass ratio] 14 ratio Invalid Interpretation Code 7 - 27 ratio AO ADM SS Vit. D 25-Hydroxy 62.7 ng/mL Invalid Interpretation Code AO ADM SS LABORATORYOrdered By: Yahaira Leong on 02-18-2022 Basophil, Absolute 0.0 103/mcL Invalid Interpretation Code 0.0 - 0.2 10^3/mcL AO Workflow SS Basophils/100 WBC (Bld) 0.8 % Invalid Interpretation Code 0.0 - 2.5 % AO Workflow SS Eosinophil, Absolute 0.1 103/mcL Invalid Interpretation Code 0.0 - 0.4 10^3/mcL AO Workflow SS Eosinophils/100 WBC (Bld) 1.6 % Invalid Interpretation Code 0.0 - 7.0 % AO Workflow SS Erythrocyte distribution width (RBC) [Ratio] 13.3 % Invalid Interpretation Code 11.5 - 14.5 % AO Workflow SS Hematocrit (Bld) [Volume fraction] 42.4 % Invalid Interpretation Code 37.0 - 47.0 % AO Workflow SS Hemoglobin (Bld) [Mass/Vol] 14.7 G/dL Invalid Interpretation Code 12.0 - 16.0 G/dL AO Workflow SS Lymphocyte, Absolute 2.0 103/mcL Invalid Interpretation Code 0.8 - 3.9 10^3/mcL AO Workflow SS Lymphocytes/100 WBC (Bld) 42.4 % Invalid Interpretation Code 10.0 - 50.0 % AO Workflow SS MCH (RBC) [Entitic mass] 30.2 pg Invalid Interpretation Code 27.0 - 31.2 pg AO Workflow SS MCHC 34.6 G/dL Invalid Interpretation Code 33.0 - 37.0 G/dL AO Workflow SS MCV (RBC) [Entitic vol] 87.4 fL Invalid Interpretation Code 80.0 - 94.0 fL AO Workflow SS Monocyte, Absolute 0.3 103/mcL Invalid Interpretation Code 0.2 - 1.0 10^3/mcL AO Workflow SS Monocytes/100 WBC (Bld) 5.5 % Invalid Interpretation Code 1.7 - 13.0 % AO Workflow SS Neutrophil, Absolute 2.4 103/mcL Invalid Interpretation Code 2.9 - 6.2 10^3/mcL AO Workflow SS Neutrophils/100 WBC (Bld) 49.7 % Invalid Interpretation Code 37.0 - 80.0 % AO Workflow SS Platelet Estimate Normal (02/18/22 10:08 AM) Invalid Interpretation Code AO Hematology S Platelet mean volume (Bld) [Entitic vol] 7.8 fL Invalid Interpretation Code 7.4 - 10.4 fL AO Workflow SS Platelets (Bld) [#/Vol] 248 103/mcL Invalid Interpretation Code 130 - 400 10^3/mcL AO Workflow SS RBC (Bld) [#/Vol] 4.85 106/mcL Invalid Interpretation Code 4.20 - 5.40 10^6/mcL AO Workflow SS WBC (Bld) [#/Vol] 4.8 103/mcL Invalid Interpretation Code 4.6 - 10.8 10^3/mcL AO Workflow SS LABORATORYOrdered By: SYSTEM SYSTEM on 02-18-2022 GFR 67 ml/min/1.73sqm Invalid Interpretation Code AO Chemistry S GFR Non- 56 ml/min/1.73sqm Invalid Interpretation Code AO Chemistry S LABORATORYOrdered By: Flo Hernandez on 08-19-2021 Albumin BCP dye [Mass/Vol] 4.3 G/dL Invalid Interpretation Code 3.4 - 4.8 G/dL AO ADM SS Albumin/Globulin [Mass ratio] 1.5 {ratio} Invalid Interpretation Code 1.1 - 2.5 ratio AO ADM SS ALP [Catalytic activity/Vol] 97 U/L Invalid Interpretation Code 40 - 135 U/L AO ADM SS ALT With P-5'-P [Catalytic activity/Vol] 21 U/L Invalid Interpretation Code 14 - 59 U/L AO ADM SS AST With P-5'-P [Catalytic activity/Vol] 14 U/L Invalid Interpretation Code 10 - 40 U/L AO ADM SS Bilirubin [Mass/Vol] 1.2 mg/dL Invalid Interpretation Code 0.2 - 1.0 mg/dL AO ADM SS Calcium [Mass/Vol] 10.0 mg/dL Invalid Interpretation Code 8.4 - 10.2 mg/dL AO ADM SS Chloride [Moles/Vol] 105 mmol/L Invalid Interpretation Code 98 - 107 mmol/L AO ADM SS Cholesterol [Mass/Vol] 218 mg/dL Invalid Interpretation Code 0 - 200 mg/dL AO ADM SS Cholesterol in HDL [Mass/Vol] 98 mg/dL Invalid Interpretation Code 40 - 60 mg/dL AO ADM SS Cholesterol in LDL [Mass/Vol] 104 mg/dL Invalid Interpretation Code 0 - 130 mg/dL AO ADM SS CO2 [Moles/Vol] 31 mmol/L Invalid Interpretation Code 23 - 31 mmol/L AO ADM SS Creatinine [Mass/Vol] 1.06 mg/dL Invalid Interpretation Code 0.55 - 1.02 mg/dL AO ADM SS Electrolyte Balance 8.0 mEq/L Invalid Interpretation Code 4.0 - 15.0 mEq/L AO ADM SS Globulin 2.8 G/dL Invalid Interpretation Code AO ADM SS Glucose [Mass/Vol] 101 mg/dL Invalid Interpretation Code 80 - 115 mg/dL AO ADM SS Potassium [Moles/Vol] 4.4 mmol/L Invalid Interpretation Code 3.5 - 5.1 mmol/L AO ADM SS Protein [Mass/Vol] 7.1 G/dL Invalid Interpretation Code 6.4 - 8.2 G/dL AO ADM SS Sodium [Moles/Vol] 144 mmol/L Invalid Interpretation Code 136 - 145 mmol/L AO ADM SS Triglyceride [Mass/Vol] 80 mg/dL Invalid Interpretation Code 0 - 150 mg/dL AO ADM SS TSH Qn 2.42 m[IU]/L Invalid Interpretation Code 0.36 - 3.74 mcIU/mL AO ADM SS Urea nitrogen [Mass/Vol] 14 mg/dL Invalid Interpretation Code 7 - 18 mg/dL AO ADM SS Urea nitrogen/Creatinine [Mass ratio] 13 ratio Invalid Interpretation Code 7 - 27 ratio AO ADM SS Vit. D 25-Hydroxy 63.8 ng/mL Invalid Interpretation Code AO ADM SS LABORATORYOrdered By: Roxanne Kendall on 08-19-2021 Basophil, Absolute 0.0 103/mcL Invalid Interpretation Code 0.0 - 0.2 10^3/mcL AO Workflow SS Basophils/100 WBC (Bld) 0.9 % Invalid Interpretation Code 0.0 - 2.5 % AO Workflow SS Eosinophil, Absolute 0.1 103/mcL Invalid Interpretation Code 0.0 - 0.4 10^3/mcL AO Workflow SS Eosinophils/100 WBC (Bld) 1.3 % Invalid Interpretation Code 0.0 - 7.0 % AO Workflow SS Erythrocyte distribution width (RBC) [Ratio] 13.5 % Invalid Interpretation Code 11.5 - 14.5 % AO Workflow SS Hematocrit (Bld) [Volume fraction] 44.2 % Invalid Interpretation Code 37.0 - 47.0 % AO Workflow SS Hgb 15.1 G/dL Invalid Interpretation Code 12.0 - 16.0 G/dL AO Workflow SS Lymphocyte, Absolute 1.6 103/mcL Invalid Interpretation Code 0.8 - 3.9 10^3/mcL AO Workflow SS Lymphocytes/100 WBC (Bld) 31.3 % Invalid Interpretation Code 10.0 - 50.0 % AO Workflow SS MCH (RBC) [Entitic mass] 30.0 pg Invalid Interpretation Code 27.0 - 31.2 pg AO Workflow SS MCHC 34.1 G/dL Invalid Interpretation Code 33.0 - 37.0 G/dL AO Workflow SS MCV (RBC) [Entitic vol] 88.0 fL Invalid Interpretation Code 80.0 - 94.0 fL AO Workflow SS Monocyte, Absolute 0.3 103/mcL Invalid Interpretation Code 0.2 - 1.0 10^3/mcL AO Workflow SS Monocytes/100 WBC (Bld) 6.3 % Invalid Interpretation Code 1.7 - 13.0 % AO Workflow SS Neutrophil, Absolute 3.1 103/mcL Invalid Interpretation Code 2.9 - 6.2 10^3/mcL AO Workflow SS Neutrophils/100 WBC (Bld) 60.2 % Invalid Interpretation Code 37.0 - 80.0 % AO Workflow SS Platelet 261 103/mcL Invalid Interpretation Code 130 - 400 10^3/mcL AO Workflow SS Platelet mean volume (Bld) [Entitic vol] 8.5 fL Invalid Interpretation Code 7.4 - 10.4 fL AO Workflow SS RBC 5.02 106/mcL Invalid Interpretation Code 4.20 - 5.40 10^6/mcL AO Workflow SS WBC 5.2 103/mcL Invalid Interpretation Code 4.6 - 10.8 10^3/mcL AO Workflow SS LABORATORYOrdered By: SYSTEM SYSTEM on 08-19-2021 GFR 63 ml/min/1.73sqm Invalid Interpretation Code AO Chemistry S GFR Non- 52 ml/min/1.73sqm Invalid Interpretation Code AO Chemistry S Monocyte distribution width Auto (Bld) [Entitic vol] Not Performed 1 *NA* (08/19/21 10:23 AM) Invalid Interpretation Code 0.00 - 20.00 AO Hematology S Comment on above: Result Comment: MDW testing performed only on adult ER patients between the ages of 18-89 years. Vital Signs Date Time Vital Sign Value Performing Clinician Quirino alvares 08-21-2024 08:08-0400 Body height 154.[address] Rosy Plunkett DO Work Phone: [facility] 08-21-2024 08:01-0400 Body mass index (BMI) [Ratio] 29.8 kg/m2 Dr. Rosy Plunkett DO Work Phone: [facility] 08-21-2024 08:01-0400 Body weight 71.[address] Rosy Plunkett DO Work Phone: [facility] 08-21-2024 08:01-0400 Diastolic blood pressure 86 mm[Hg] Dr. Rosy Plunkett DO Work Phone: [facility] 08-21-2024 08:01-0400 Systolic blood pressure 134 mm[Hg] Dr. Rosy Plunkett DO Work Phone: [facility] 08-21-2022 12:31-0400 Diastolic Blood Pressure Non-Invasive 108 1 JAMIE SUPPAN DPM [facility] 08-21-2022 12:31-0400 Heart rate 85 /min JAMIE SUPPAN DPM [facility] 08-21-2022 12:31-0400 Respiratory rate 16 /min JAMIE SUPPAN DPM [facility] 08-21-2022 12:31-0400 Systolic Blood Pressure Non-Invasive 122 1 JAMIE SUPPAN DPM [facility] 08-21-2022 12:25-0400 Diastolic Blood Pressure Non-Invasive 86 1 JAMIE SUPPAN DPM [facility] 08-21-2022 12:25-0400 Heart rate 85 /min JAMIE SUPPAN DPM [facility] 08-21-2022 12:25-0400 Respiratory rate 12 /min JAMIE SUPPAN DPM [facility] 08-21-2022 12:25-0400 Systolic Blood Pressure Non-Invasive 120 1 JAMIE SUPPAN DPM [facility] 08-21-2022 12:24-0400 Diastolic Blood Pressure Non-Invasive 93 1 JAMIE SUPPAN DPM [facility] 08-21-2022 12:24-0400 Heart rate 88 /min JAMIE SUPPAN DPM [facility] 08-21-2022 12:24-0400 Respiratory rate 17 /min JAMIE SUPPAN DPM [facility] 08-21-2022 12:24-0400 Systolic Blood Pressure Non-Invasive 115 1 JAMIE SUPPAN DPM [facility] 08-21-2022 12:15-0400 Respiratory Rate - Anes 17 br/min JAMIE SUPPAN DPM [facility] 08-21-2022 12:10-0400 Respiratory Rate - Anes 13 br/min JAMIE SUPPAN DPM [facility] 08-21-2022 12:05-0400 Respiratory Rate - Anes 13 br/min JAMIE SUPPAN DPM [facility] 08-21-2022 10:51-0400 Body height 155 cm JAMIE SUPPAN DPM [facility] 08-21-2022 10:51-0400 Body weight 70.5 kg JAMIE SUPPAN DPM [facility] 08-21-2022 10:51-0400 Heart rate 79 /min JAMIE SUPPAN DPM [facility] 08-07-2022 13:12-0400 Body height 155 cm JAMIE SUPPAN DPM [facility] 08-07-2022 13:12-0400 Body weight 70.5 kg JAMIE SUPPAN DPM [facility] 08-07-2022 13:12-0400 Body weight 29.34 kg/m2 JAMIE SUPPAN DPM [facility] 08-07-2022 13:12-0400 Diastolic Blood Pressure Non-Invasive 84 1 JAMIE SUPPAN DPM [facility] 08-07-2022 13:12-0400 Heart rate 92 /min JAMIE SUPPAN DPM [facility] 08-07-2022 13:12-0400 Respiratory rate 20 /min JAMIE SUPPAN DPM [facility] 08-07-2022 13:12-0400 Systolic Blood Pressure Non-Invasive 116 1 JAMIE SUPPAN DPM [facility] Encounters Encounter Date Encounter Type Care Provider Facility Start: 09-25-2024 ambulatory Rosy Barr ity:[facility] Start: 09-21-2024 End: 09-21-[address] ROSY PLUNKETT DO Facility:[facility] Start: 09-21-2024 Encounter for genera l adult medical examination without abnormal findings DR ROSY PLUNKETT DO [facility] Start: 09-21-2024 End: 09-21-[address] ROSY PLUNKETT DO [facility] Start: 08-21-2024 End: 08-21-2024 Patient encounter procedure Gladys Delong FILLING [employer]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 Rosy Plunkett DO Work Phone: [facility] Work Phone: Start: 12-27-2023 End: 12-27-2023 ambulatory Rosy Plunkett Facility:[facility] Start: 11-03-2023 End: 11-03-2023 ambulatory Rosy Plunkett Facility:[facility] Start: 10-04-2023 End: 01-20-2024 ambulatory BRIANNE FERGUSON PA-C Facility:[facility] Start: 10-04-2023 End: 01-20-2024 Physical therapy management BRIANNE FERGUSON PA-C [facility] Start: 09-21-2023 End: 09-21-[address] ROSY PLUNKETT DO Facility:[facility] Start: 09-21-2023 End: 09-21-[address] ROSY PLUNKETT DO [facility] Start: 09-07-2023 End: 09-07-[address] XIMENA MOORE MD Facility:[facility] Start: 09-07-2023 End: 09-07-[address] XIMENA MOORE MD [facility] Start: 12-21-2022 End: 12-21-2022 ambulatory [facility] Work Phone: Start: 12-21-2022 End: 12-21-2022 Patient encounter procedure [facility], [facility] Work Phone: Start: 10-15-2022 End: 10-15-2022 ambulatory [facility] Work Phone: Start: 10-15-2022 End: 10-15-2022 Patient encounter procedure [facility] Work Phone: Start: 10-13-2022 End: 10-13-[address] ROSY PLUNKETT DO Facility:[facility] Start: 10-13-2022 End: 10-13-[address] ROSY PLUNKETT DO [facility] Start: 08-21-2022 End: 08-21-2022 SAME DAY STAY JAMIE DE JESUS DPM [facility] Start: 08-07-2022 End: 08-07-2022 Admission to establishment JAMIE DE JESUS DPM [facility] Start: 06-26-2022 End: 06-26-[address] MARTY SWANSON MD [facility] Start: 06-26-2022 End: 06-26-[address] ROSY PLUNKETT DO [facility] Start: 04-20-2022 End: 04-20-[address] CONRAD MAN MD [facility] Start: 02-18-2022 End: 02-18-[address] ROSY PLUNKETT DO [facility] Start: 12-25-2021 End: 12-25-2021 ambulatory [facility] Work Phone: Start: 12-25-2021 End: 12-25-2021 Patient encounter procedure [facility], [facility] Start: 09-16-2021 End: 09-16-2021 Patient encounter procedure [facility] Start: 09-03-2021 End: 09-03-2021 Patient encounter procedure MARILYN INFANTE 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 [facility] Start: 08-19-2021 End: 08-19-[address] ROSY PLUNKETT DO [facility] Start: 02-01-2021 End: 02-01-2021 Patient encounter procedure RAYMOND GILL DO [facility] Procedures Date Procedure Procedure Detail Performing Clinician Start: 03-15-[address] ROSY PLUNKETT DO Comment on above: left Start: 12-21-2022 Diagnostic radiograp hy of abdomen Start: 10-15-2022 Dual energy X-ray absorptiometry Start: 10-15-2022 Screening mammography Start: 08-21-2022 Bone spur of left foot DR ROSY PLUNKETT DO Start: 12-25-2021 Diagnostic radiograp hy of abdomen Start: 09-16-2021 Screening mammography Start: 08-04-2021 Lesion (morphologic abnormality) DR ROSY PLUNKETT DO Benign pigmented ski n lesion JAMIE DE JESUS DPM Colonoscopy JAMIE DE JESUS DP M Extracorporeal shock wave lithotripsy JAMIE DE JESUS DPM Immunizations Immunization Date Immunization Notes Care Provider Fa cili 02-13-2024 influenza virus vacc ine, unspecified formulation DR ROSY PLUNKETT DO [facility] 01-31-2023 influenza virus vacc ine, unspecified formulation DR ROSY PLUNKETT DO [facility] 09-18-2022 Pneumococcal conjuga te PCV20, polysaccharide [id number] conjugate, adjuvant, PF; Translations: [Prevnar 20] DR ROSY PLUNKETT DO [facility] 02-14-2022 SARS-CoV-2 (CV19)mRNA-[address] ROSY PLUNKETT DO [facility] 01-03-2022 influenza virus vacc ine, unspecified formulation DR ROSY PLUNKETT DO [facility] 08-19-2021 pneumococcal polysaccharide vaccine, 23 valent; Translations: [Pneumovax 23] DR ROSY PLUNKETT DO [facility] 02-14-2021 SARS-CoV-2 (COVID-19 ) mRNA-[address] ROSY PLUNKETT DO [facility] 02-07-2021 influenza virus vacc ine, unspecified formulation DR ROSY PLUNKETT DO [facility] 08-15-2020 tetanus toxoid, redu kerri diphtheria toxoid, and acellular pertussis vaccine, adsorbed; Translations: [Boostrix (Tdap)] RAYMOND GILL DO [facility] 06-25-2020 SARS-CoV-2 (COVID-19 ) mRNA-1273 vaccine RAYMOND GILL DO [facility] Comment on above: Result Comment: 2020: [id number] 05-28-2020 SARS-CoV-2 (COVID-19 ) mRNA-2178 vaccine RAYMOND CURIELKYLAH DO [facility] Comment on above: Result Comment: 2020: [id number] 12-23-2019 influenza virus vacc ine, unspecified formulation RAYMOND GILL DO [facility] Comment on above: Location History: [facility] 03-13-2019 zoster vaccine recombinant RAYMOND CURIELKYLAH DO [facility] 12-30-2018 influenza virus vacc ine, unspecified formulation DR ROSY PLUNKETT DO [facility] [email or web address] 11-23-2017 influenza virus vacc ine, unspecified formulation DR ROSY PLUNKETT DO [facility] [employer] 10-05-2008 tetanus toxoid, redu kerri diphtheria toxoid, and acellular pertussis vaccine, adsorbed RAYMOND CURIELKYLAH DO [facility] Payers Date Payer Category Payer Self-pay [id number] 2022 Medicare [id number] 2022 Unknown [id number] 2021 Medicare [id number] 2015 Unknown [id number] 2010 Private Health Insurance [id number] 1955 Unknown [id number] 1956 Unknown [id number] 1956 Unknown [id number] 1956 Unknown [id number] 1956 Unknown [id number] Self-pay SELF PAY INSURANCE [id number] Unknown [id number] Unknown [id number] Unknown [id number] Unknown [id number] Social History Date Type Detail Facility Start: 08-24-2019 End: 09-21-2024 Never smoked tobacco (finding) [facility] Start: 1955 Sex Assigned At Female [facility] Start: 02[facility]13-2019 [facility] Start: 02-13-2019 Non-smoker [facility] Sexual Orientation [facility] Start: 09-07-2018 Sex Female (finding) [facility] Procedure Code Equipment Code Equipment Origin al Text Equipment Identifier Dates STENT,URETERAL PIGTAIL [id number] FDA Start: 02-15-2019 STENT,URETERAL PIGTAIL [id number] FDA Start: 02-15-2019 STENT,URETERAL PIGTAIL [id number] FDA Start: 02-15-2019 STENT,URETERAL PIGTAIL [id number] FDA Start: 02-15-2019 Functional Status Date Assessment Result Facility 10-04-2023 Functional Status Home Living Ad ditional Information Objective: Cardiovascular screen: BP: 130/80 HR: 81 BPM O2 sat: 97% Gait: Ambulates with FWW with antalgic stiff leg gait pattern. Appears steady. Weight bearing status: WBAT Effusion: min to mod L knee effusion. Functional Strength: ASLR: 4-6 , Sit to stand AQUILES Palpation: Tender to Palpation denies calf pain or tenderness bilat. Neurological Screen: Sensation: Grossly intact and symmetrical light touch on bilat LE's Special Tests: Homans neg bilat. [facility] 08-21-20[address] [facility] 08-21-[address] [facility] 08-07-2022 Functional Status Sensory Deficits None [facility] Mental Status Date Assessment Result Facility 08-21-2022 Mental Status Orientation Oriented x 4 [facility] 08-21-2022 Mental Status [facility] Clinical Notes 02-01-2021 to 08-21-2024 Radiology Note Date & Type Note Facility 08-21-2024 Progress note [facility] 09-07-2023 Note ORIGINAL EXAMINATION: CT OF THE LEFT KNEE WITHOUT CONTRAST 09/07/2023 9:53 am TECHNIQUE: CT of the left knee was performed without the administration of intravenous contrast. Multiplanar reformatted images are provided for review. Automated exposure control, iterative reconstruction, and/or weight based adjustment of the mA/kV was utilized to reduce the radiation dose to as low as reasonably achievable. COMPARISON: None. HISTORY ORDERING SYSTEM PROVIDED HISTORY: Reason for Exam: UNILATERL OSTEOARTHRITIS OF THE LEFT KNEE FINDINGS: Survey images of the left hip: No aggressive bony lesion. Sclerosis seen at the symphysis pubis. Mild degenerative changes noted in left hip. Left knee: Prominent tricompartmental degenerative changes are identified. The joint effusion noted. There are calcified intra-articular bodies most severe in the anterior joint recess. Survey images of the ankle: Calcaneal enthesophytes. No aggressive bony lesions. IMPRESSION: Prominent tricompartmental degenerative changes in the left knee with joint effusion and intra-articular bodies. Interpreted by: Serg Bradley MD Preliminary Report By: Serg Bradley MD Electronically signed By Serg Bradley MD Dictated Date: 09/07/2023 11:49:50 AM Prelim Date: 09/07/2023 11:53:31 AM Sign Date: 09/07/2023 11:53:31 AM Ordering Provider: XIMENA MOORE [facility] 09-18-2022 Evaluation + Plan note Future Scheduled TestsBD Bone Density DEXA Axial Skeleton 09/18/22 [facility] 08-21-2022 Hospital Discharg e instructions Patient Education 08/21/2022 12:34:06 Monitored Anesthesia Care, Care After Monitored Anesthesia Care, Care After These instructions provide you with information about caring for yourself after your procedure. Your health care provider may also give you more specific instructions. Your treatment has been planned according to current medical practices, but problems sometimes occur. Call your health care provider if you have any problems or questions after your procedure. What can I expect after the procedure? After your procedure, you may: Feel sleepy for several hours. Feel clumsy and have poor balance for several hours. Feel forgetful about what happened after the procedure. Have poor judgment for several hours. Feel nauseous or vomit. Have a sore throat if you had a breathing tube during the procedure. Follow these instructions at home: For at least 24 hours after the procedure: Have a responsible adult stay with you. It is important to have someone help care for you until you are awake and alert. Rest as needed. Do not: ?Participate in activities in which you could fall or become injured. ?Drive. ?Use heavy machinery. ?Drink alcohol. ?Take sleeping pills or medicines that cause drowsiness. ?Make important decisions or sign legal documents. ?Take care of children on your own. Eating and drinking Follow the diet that is recommended by your health care provider. If you vomit, drink water, juice, or soup when you can drink without vomiting. Make sure you have little or no nausea before eating solid foods. General instructions Take jqng-jbv-npfgdej and prescription medicines only as told by your health care provider. If you have sleep apnea, surgery and certain medicines can increase your risk for breathing problems. Follow instructions from your health care provider about wearing your sleep device: ?Anytime you are sleeping, including during daytime naps. ?While taking prescription pain medicines, sleeping medicines, or medicines that make you drowsy. If you smoke, do not smoke without supervision. Keep all follow-up visits as told by your health care provider. This is important. Contact a health care provider if: You keep feeling nauseous or you keep vomiting. You feel light-headed. You develop a rash. You have a fever. Get help right away if: You have trouble breathing. Summary For several hours after your procedure, you may feel sleepy and have poor judgment. Have a responsible adult stay with you for at least 24 hours or until you are awake and alert. This information is not intended to replace advice given to you by your health care provider. Make sure you discuss any questions you have with your health care provider. Document Released: 06/21/2016 Document Revised: 05/30/2018 Document Reviewed: 06/21/2016 [employer] Patient Education 2020 [employer]. 08/21/2022 12:34:00 Heel Spur Heel Spur A heel spur is a bony growth that forms on the bottom of the heel bone (calcaneus). Heel spurs are common. They often cause inflammation in the band of tissue that connects the toes to the heel bone (plantar fascia). This may cause pain on the bottom of the foot, near the heel. Many people with plantar fasciitis also have heel spurs. However, spurs are not the cause of plantar fasciitis pain. What are the causes? The exact cause of heel spurs is not known. They may be caused by: Pressure on the heel bone. Bands of tissue (tendons) pulling on the heel bone. What increases the risk? You are more likely to develop this condition if you: Are older than 40. Are overweight. Have mctc-kbd-bfxs arthritis (osteoarthritis). Have plantar fascia inflammation. Participate in sports or activities that include a lot of running or jumping. Wear poorly fitted shoes. What are the signs or symptoms? Some people have no symptoms. If you do have symptoms, they may include: Pain in the bottom of your heel. Pain that is worse when you first get out of bed. Pain that gets worse after walking or standing. How is this diagnosed? This condition may be diagnosed based on: Your symptoms and medical history. A physical exam. A foot X-ray. How is this treated? Treatment for this condition depends on how much pain you have. Treatment options may include: Doing stretching exercises. Losing weight, if necessary. Wearing specific shoes or inserts inside of shoes (orthotics) for comfort and support. Wearing splints on your feet while you sleep. Splints keep your feet in a position (usually 90 degrees) that should prevent and relieve the pain you feel when you first get out of bed. They also make stretching easier in the morning. Taking fize-crk-qjqvqra medicine to relieve pain, such as NSAIDs. Using high-intensity sound waves to break up the heel spur (extracorporeal shock wave therapy). Getting steroid injections in your heel to reduce inflammation. Having surgery, if your heel spur causes long-term (chronic) pain. Follow these instructions at home: Activity Avoid activities that cause pain until you recover, or for as long as directed by your health care provider. Do stretching exercises as directed. Stretch before exercising or being physically active. Managing pain, stiffness, and swelling If directed, put ice on your foot: ?Put ice in a plastic bag. ?Place a towel between your skin and the bag. ?Leave the ice on for 20 minutes, 2 3 times a day. Move your toes often to avoid stiffness and to lessen swelling. When possible, raise (elevate) your foot above the level of your heart while you are sitting or lying down. General instructions Take ehom-ugu-gizgudi and prescription medicines only as told by your health care provider. Wear supportive shoes that fit well. Wear splints, inserts, or orthotics as told by your health care provider. If recommended, work with your health care provider to lose weight. This can relieve pressure on your foot. Do not use any products that contain nicotine or tobacco, such as cigarettes and e-cigarettes. These can affect bone growth and healing. If you need help quitting, ask your health care provider. Keep all follow-up visits as told by your health care provider. This is important. Contact a health care provider if: Your pain does not go away with treatment. Your pain gets worse. Summary A heel spur is a bony growth that forms on the bottom of the heel bone (calcaneus). Heel spurs often cause inflammation in the band of tissue that connects the toes to the heel bone (plantar fascia). This may cause pain on the bottom of the foot, near the heel. Doing stretching exercises, losing weight, wearing specific shoes or shoe inserts, wearing splints while you sleep, and taking pain medicine may ease the pain and stiffness. Other treatment options may include high-intensity sound waves to break up the heel spur, steroid injections, or surgery. This information is not intended to replace advice given to you by your health care provider. Make sure you discuss any questions you have with your health care provider. Document Released: 04/07/2006 Document Revised: 02/16/2018 Document Reviewed: 02/16/2018 [employer] Patient Education [employer] Follow Up Care 07/29/2022 12:57:25 With:JAMIE DE [facility], Surgery Address: [address] [place] [address], [place] [address] [facility] [place] [address]- When:08/27/2022 08:40:00 Comments:Follow-up as scheduled [facility] 08-21-2022 Evaluation + Plan note Extrac dimitrios from: Title:Clinical Document Author:JAMIE DE JESUS PM Date:08/21/22 [place] ADMISSION HISTORY AN D PHYSICIAL CHIEF COMPLAINT: HISTORY OF PRESENT ILLNESS: REVIEW OF SYSTEMS: ACTIVE PROBLEMS: (6) CKD (chronic kidney disease) stage 3, GFR 30-59 ml/min (6716047321) Hematuria (988730676) Nephrolithiasis (262759697) Osteoarthritis, knee (442045509) Osteopenia (975908620) Pain of right thumb (386687170) MEDICATIONS: Active Inpt Meds: cefOXitin Start: 08/21/22 10:37:00 EDT, Dose = 1 gram(s), IV Piggyback, PREOP pharm, Rate: 200 mL/hr, Infuse over: 30 minute(s), 08/21/22 10:37:00 EDT Active PRN Meds: None One Time Meds: None Active IV Meds: Lactated Ringers Infusion 1000 mL (LR 1000 mL) Start: 08/21/22 10:37:00 EDT, Rate: 125 mL/hr, 08/21/22 10:37:00 EDT ALLERGIES: (1) Boniva FAMILY HISTORY: SOCIAL HISTORY: PHYSICAL EXAM: VITALS: GjbbvsLbtqXCNdrssVFXqR8MUP3SgjvNi(kg) 08/21 10:51----368396QZ31/09 70.5 24 Hr Tmax: No Data Available 36 Hr Tmax: No Data Available Vital Signs are the last 5 in the past 48 hours. Weights display the last 5 within 7 days. Initial Wt: 08/21 70.5 kg 155 lb Current Wt: 08/21 70.5 kg 155 lb GENERAL: HEENT: CARDIOVASCULAR: RESPIRATORY: ABDOMEN: EXREMETIES: NEUROLOGICAL: PSYCHIATRIC: LABS: No 36hr Lab Data DIAGNOSTICS: IMPRESSION: PLAN: History and Physical Update I have examined the patient; reviewed the H&P and there are no changes to the H&P unless noted below. Future Appointments Appointment Date:09/18/2022 09:00:00 AM Scheduled Provider:ORSY PLUNKETT DO Location:[facility] Appointment Type:[facility] 06-09-2023 Summary of episode note Discharge Instructions Thank you for allowing [facility] to assist you with your healthcare needs. The following is importantdischarge information regarding your hospital visit. Your Care Team ROSY PLUNKETT DO Your Diagnosis Post Op Foot Surgery What to do next Instructions From Your Doctor See Instruction Sheet Scheduled Follow-Up Appointments App[facility] 09:00 AM EDT RSOY PLUNKETT DO [facility] [place] [address] [place] [address] Follow Up Appointments Follow Up with JAMIE DE JESUS DPM, Surgery When 08/27/2022 08:40 AM EDT Why: Follow-up as scheduled Where: [address] [facility], [address] [facility] [place] [address]- The Following Activity and Diet Have Been Ordered for You Discharge Activity - Ordered -- Other, Follow the post-operative/post-procedure activity instructions provided by your physician's office., 08/21/22 12:35:00 EDT No qualifying data available. The Following Equipment Has Been Ordered for You Discharge Home Equipment Discharge Wound Care - Ordered -- Follow the post-operative/post-procedure wound care instructions provided by your physician's office., 08/21/22 12:35:00 EDT Allergies Boniva (Myalgia) Medications Please ask your primary doctor or pharmacist before taking any other medication not listed, including over the counter drugs, herbal medications, vitamins and or supplements as they may interact withyour home medications. What How Much When Instructions Last Dose Unchanged alendronate (alendronate 70 mg oral tablet) 1 tab(s) by mouth Every week Unchanged biotin by mouth Once a day Unchanged cholecalciferol (Vitamin D3) 25 Microgram by mouth Once a day Unchanged methylsulfonylmethane (MSM 1000 mg oral tablet) 1 by mouth Two (2) times a day with glucosamine Unchanged Misc Medication (citrcal) 2 tab(s) by mouth Every day Unchanged multivitamin with minerals (Centrum Silver oral tablet) by mouth Once a day Unchanged potassium citrate (potassium citrate 10 mEq oral tablet, extended release) TAKE ONE TABLET BY MOUTH TWICE DAILY Please take this list to your next doctor s visit. Bring all medications you take, including over the counter medications, herbals and other supplements with you to your doctor s visit. Patients and families are reminded to discard old lists and to update any records with all medication providers or retail pharmacies. Education Materials Monitored Anesthesia Care, Care After These instructions provide you with information about caring for yourself after your procedure. Your health care provider may also give you more specific instructions. Your treatment has been plannedaccording to current medical practices, but problems sometimes occur. Call your health care provider if you have any problems or questions after your procedure. What can I expect after the procedure? After your procedure, you may: Feel sleepy for several hours. Feel clumsy and have poor balance for several hours. Feel forgetful about what happened after the procedure. Have poor judgment for several hours. Feel nauseous or vomit. Have a sore throat if you had a breathing tube during the procedure. Follow these instructions at home: For at least 24 hours after the procedure: Have a responsible adult stay with you. It is important to have someone help care for you until youare awake and alert. Rest as needed. Do not: ? Participate in activities in which you could fall or become injured. ? Drive. ? Use heavy machinery. ? Drink alcohol. ? Take sleeping pills or medicines that cause drowsiness. ? Make important decisions or sign legal documents. ? Take care of children on your own. Eating and drinking Follow the diet that is recommended by your health care provider. If you vomit, drink water, juice, or soup when you can drink without vomiting. Make sure you have little or no nausea before eating solid foods. General instructions Take xfno-blc-yqoylrx and prescription medicines only as told by your health care provider. If you have sleep apnea, surgery and certain medicines can increase your risk for breathing problems. Follow instructions from your health care provider about wearing your sleep device: ? Anytime you are sleeping, including during daytime naps. ? While taking prescription pain medicines, sleeping medicines, or medicines that make you drowsy. If you smoke, do not smoke without supervision. Keep all follow-up visits as told by your health care provider. This is important. Contact a health care provider if: You keep feeling nauseous or you keep vomiting. You feel light-headed. You develop a rash. You have a fever. Get help right away if: You have trouble breathing. Summary For several hours after your procedure, you may feel sleepy and have poor judgment. Have a responsible adult stay with you for at least 24 hours or until you are awake and alert. This information is not intended to replace advice given to you by your health care provider. Make sure you discuss any questions you have with your health care provider. Document Released: 06/21/2016 Document Revised: 05/30/2018 Document Reviewed: 06/21/2016 Elsevier Patient Education 2020 [employer] Heel Spur A heel spur is a bony growth that forms on the bottom of the heel bone (calcaneus). Heel spurs are common. They often cause inflammation in the band of tissue that connects the toes to the heel bone (plantar fascia). This may cause pain on the bottom of the foot, near the heel. Many people with plantar fasciitis also have heel spurs. However, spurs are not the cause of plantar fasciitis pain. What are the causes? The exact cause of heel spurs is not known. They may be caused by: Pressure on the heel bone. Bands of tissue (tendons) pulling on the heel bone. What increases the risk? You are more likely to develop this condition if you: Are older than 40. Are overweight. Have tceu-qwn-cksf arthritis (osteoarthritis). Have plantar fascia inflammation. Participate in sports or activities that include a lot of running or jumping. Wear poorly fitted shoes. What are the signs or symptoms? Some people have no symptoms. If you do have symptoms, they may include: Pain in the bottom of your heel. Pain that is worse when you first get out of bed. Pain that gets worse after walking or standing. How is this diagnosed? This condition may be diagnosed based on: Your symptoms and medical history. A physical exam. A foot X-ray. How is this treated? Treatment for this condition depends on how much pain you have. Treatment options may include: Doing stretching exercises. Losing weight, if necessary. Wearing specific shoes or inserts inside of shoes (orthotics) for comfort and support. Wearing splints on your feet while you sleep. Splints keep your feet in a position (usually 90 degrees) that should prevent and relieve the pain you feel when you first get out of bed. They also makestretching easier in the morning. Taking ryit-byb-dspdtwh medicine to relieve pain, such as NSAIDs. Using high-intensity sound waves to break up the heel spur (extracorporeal shock wave therapy). Getting steroid injections in your heel to reduce inflammation. Having surgery, if your heel spur causes long-term (chronic) pain. Follow these instructions at home: Activity Avoid activities that cause pain until you recover, or for as long as directed by your health care provider. Do stretching exercises as directed. Stretch before exercising or being physically active. Managing pain, stiffness, and swelling If directed, put ice on your foot: ? Put ice in a plastic bag. ? Place a towel between your skin and the bag. ? Leave the ice on for 20 minutes, 2 3 times a day. Move your toes often to avoid stiffness and to lessen swelling. When possible, raise (elevate) your foot above the level of your heart while you are sitting or lying down. General instructions Take onvb-pcy-vzhixcc and prescription medicines only as told by your health care provider. Wear supportive shoes that fit well. Wear splints, inserts, or orthotics as told by your health care provider. If recommended, work with your health care provider to lose weight. This can relieve pressure on your foot. Do not use any products that contain nicotine or tobacco, such as cigarettes and e-cigarettes. These can affect bone growth and healing. If you need help quitting, ask your health care provider. Keep all follow-up visits as told by your health care provider. This is important. Contact a health care provider if: Your pain does not go away with treatment. Your pain gets worse. Summary A heel spur is a bony growth that forms on the bottom of the heel bone (calcaneus). Heel spurs often cause inflammation in the band of tissue that connects the toes to the heel bone (plantar fascia). This may cause pain on the bottom of the foot, near the heel. Doing stretching exercises, losing weight, wearing specific shoes or shoe inserts, wearing splints while you sleep, and taking pain medicine may ease the pain and stiffness. Other treatment options may include high-intensity sound waves to break up the heel spur, steroid injections, or surgery. This information is not intended to replace advice given to you by your health care provider. Make sure you discuss any questions you have with your health care provider. Document Released: 04/07/2006 Document Revised: 02/16/2018 Document Reviewed: 02/16/2018 [employer] Patient Education 2020 [employer]. Additional Information VACCINATE! IT SAVES LIVES! Members of the community who have not yet received the COVID-19 vaccine and would like to receive it can visit one of [facility] vaccine clinics. There are many vaccine clinic locations within the [facility]. For locations and available times, please visit [email or web address].[place].gov/. It is important to note that some COVID mobile vaccine clinics are held outdoors and may be canceled in rainy or stormy conditions. To learn more about pediatric vaccinations (ages 5-11), we invite you to visit the [facility] webpage. [email or web address]/pages/[email or web address]-Gaynb-Rtsinzmoecb-[email or web address]-Hwduq-Gpz stions.htmlTo learn more about the COVID-19 vaccine, we invite you to visit the CDC website for a list of frequently asked questions.https://www.cdc.gov/coronavirus/2019-ncov/vaccines/faq.html [facility] Patient Portal Access Instructions: Stay connected with your healthcare team and access your personal medical information anytime with the [facility] Patient Portal. Please follow the directions below to create your [facility] account: 1.Access the email account you provided upon registration to the hospital/physician office.2.Look for an invitation email from [facility].3.Open the email and access the invitation link: AcceptInvitation to [facility].4.Fill in the required melara to create your account. To access your account, visit [email or web address]. Click the blue button labeled "Access Patient Portal" and then log in with the username and password that you created in the steps above. You will be able to view your test results, lab results, a summary of your visits, upcoming appointments and more. There is also a convenient messaging option where you can send secure messages to your Coolest Coolervider. In addition, you will have the ability to download any documents or summaries to your computer and/or send the information securely to a physician. Remember that your healthcare information is confidential, so carefully consider who you will allowto register on the [facility] Patient Portal for access to your information. You can also access the [facility] Patient Portal on the [employer] deepali. Simply click on "Patient Portal" and then log into your account. If you would like to receive a full copy of your medical records, please contact the [facility] Medical Records Department by calling [phone], Wednesday through Wednesday between 8 a.m. and 4:30 p.m. HOW TO SAFELY DISPOSE OF PRESCRIPTION MEDICATIONS Please use one of the following methods to safely dispose of your unused medications. 1.Use a drug disposal kit: the drug disposal pouch allows you to safely discard your old and unuseddrugs. Ask your nurse to give you one when you are discharged.2.Visit a local take-back location: Many local pharmacies and police departments have programs that collect old and unwanted prescriptiondrugs. Call your local pharmacy or go to http://bit.ly/7V8Il6w to find one close to you.3.Make use of household items: Use cat litter or old coffee grounds to dispose medications if other options arenot available. Mix your drugs with these household products, seal them in an airtight container andthrow it into the garbage. Call [facility]: [phone] to be sure your drugs can be disposed of in this way. Some medicines may require a different approach.4.Never flush your medications down the toilet. IF YOU HAVE BEEN PRESCRIBED AN OPIOID FOR PAIN If you have been prescribed an opioid (such as hydrocodone, oxycodone or morphine), it is critical to understand the possible side effects and risks of opioid pain medications. Even when taken as directed, opioids can have several side effects including: Tolerance, meaning you might need to take more of a medication for the same pain relief. Nausea, vomiting and/or constipation. Sleepiness, dizziness, dry mouth, confusion, depression or itching. Physical dependence, meaning you have withdrawal symptoms when a medication is stopped, can develop within a few days. KNOW YOUR RESPONSIBILITIES It is important to know exactly how much and how often to take the opioid pain medications you are prescribed. Never take opioids in higher amounts or more often than prescribed. Do not combine opioids with alcohol or other drugs that cause drowsiness, such as benzodiazepines, also known as benzos, including diazepam and alprazolam, muscle relaxants or sleep aids. Never sell or share prescription opioids. This is illegal. Store opioids in a secure place and out of reach of others (including children, family, friends and visitors). The last page of this document has been signed and retained as a CHART COPY. Signatures Patient Education Materials Monitored Anesthesia Care, Care After Heel Spur Medication Leaflets My discharge plan and instructions have been reviewed and explained to me and IIRISH JANE understand my current condition and have read and understand these discharge instructions. I have received a written copy of the plan/instructions. If I have questions, I am aware that I should contact my d octor. Patient/Clinic Supervisor Signature: Date/Time: Relationship to Patient: Witness Name/Signature: Date/Time: [facility]06-09-2023 Anesthesiology Consult note Patient: MARQUIS COBURN Age: 67 years Sex: Female : 1955 Associated Diagnoses: None Author: BRUCE GOLDEN APRN-ISABELLA Preoperative Information Time of last food or liquid consumption: 08/20/2022 23:30:00 Anesthesia history Patient's history: negative. Family's history: negative. Review of Systems Ear/Nose/Mouth/Throat: Negative except as documented in history of present illness. Respiratory: Negative except as documented in history of present illness. Cardiovascular: Negative except as documented in history of present illness. Gastrointestinal: Negative except as documented in history of present illness. Genitourinary: Negative except as documented in history of present illness. Endocrine: Negative except as documented in history of present illness. Musculoskeletal: Negative except as documented in history of present illness. Integumentary: Negative except as documented in history of present illness. Neurologic: Negative except as documented in history of present illness. Health Status Allergies: Allergic Reactions (Selected) Severity Not Documented Boniva- Myalgia., Allergies (1) ActiveReaction BonivaMyalgia Current medications: (Selected) Inpatient Medications Ordered LR 1000 mL: 125 mL/hr, Intravenous cefOXitin: 1 gram(s), 200 mL/hr, IV Piggyback, PREOP pharm Prescriptions Prescribed alendronate 70 mg oral tablet: 70 mg, 1 tab(s), Oral, qWeek, 12 tab(s), 3 Refill(s) Documented Medications Documented Centrum Silver oral tablet: Oral, qDay, 0 Refill(s) MSM 1000 mg oral tablet: 1, Oral, BID, with glucosamine, 0 Refill(s) Vitamin D3: 25 mcg, Oral, qDay, 0 Refill(s) biotin: Oral, qDay, 0 Refill(s) citrcal: 2 tab(s), Oral, Daily, 0 Refill(s) potassium citrate 10 mEq oral tablet, extended release: TAKE ONE TABLET BY MOUTH TWICE DAILY, Medications (2) Active Scheduled: (1) ceFOXitin 1 gram(s), IV Piggyback, PREOP pharm Continuous: (1) Lactated Ringers Infusion 1000 mL 1,000 mL, Intravenous, 125 mL/hr PRN: (0) Problem list: Medical Hematuria / SNOMED CT 907587826 / Confirmed CKD (chronic kidney disease) stage 3, GFR 30-59 ml/min / SNOMED CT 4117119368 / Confirmed Nephrolithiasis / SNOMED CT 076174877 / Confirmed Osteoarthritis, knee / SNOMED CT 384928860 / Confirmed Osteopenia / SNOMED CT 684162867 / Confirmed Pain of right thumb / SNOMED CT 567837603 / Confirmed Canceled: Cough / SNOMED CT 82483507, Active Problems (6) CKD (chronic kidney disease) stage 3, GFR 30-59 ml/min Hematuria Nephrolithiasis Osteoarthritis, knee Osteopenia Pain of right thumb Histories Past Medical History: No active or resolved past medical history items have been selected or recorded. Family History: Cancer Mother Procedure history: Extracorporeal shockwave lithotripsy (18547705). Colonoscopy (422911982). Benign pigmented skin lesion (7205563434). Social History Social & Psychosocial Habits Alcohol 12/17/2018 Use: Never Substance Abuse 12/17/2018 Use: Never Tobacco 08/24/2019 Tobacco Use: Never (less than 100 in l Exposure to Tobacco Smoke Lives in non-smoking home Home/Environment 08/07/2022 Domestic Concerns None Living situation: Home/Independent Primary Senior Java Ui Developer: Self Current Home Treatments None Special Services and Community Resources None Spouse Name Sushant Marital Status of Patient if Patient Independent Adult: Nutrition/Health 08/07/2022 Type of diet: Avoids oxalate containing foods Appetite Good Eating Difficulties None Caffeine intake amount: Occasional . Physical Examination Vital Signs 08/21/2022 10:51 EDT Apical Heart Rate 79 bpm Respiratory Rate 19 br/min Systolic Blood Pressure Non-Invasive 135 mmHg Diastolic Blood Pressure Non-Invasive 100 mmHg >HHI Vital Signs(last 24 hrs) Last Charted Resp Rate 19 br/min (AUG 21 10:51) UNE315 mmHg (AUG 21 10:51) DBPC 100mmHg (AUG 21 10:51) Measurements from flowsheet : Measurements 08/21/2022 10:51 EDT Height 155 cm Admission Weight 70.5 kg [place] Body Weight 47.85 kg Pain assessment: Pain Assessment 08/21/2022 10:51 EDT Primary Pain Intensity 0 Pain Scale Type 0-10 Pain scale . General: Alert and oriented. Airway: Normal neck range of motion. Mallampati classification: II (soft palate, fauces, uvula visible). Head: Normocephalic. Dentition Evaluation: Intact, Own teeth. Neck: Full range of motion. Respiratory: Lungs are clear to auscultation. Cardiovascular: Normal rate. Heart Sounds: Normal. Gastrointestinal: Soft. Musculoskeletal Normal range of motion. Integumentary: Intact, Warm, Dry. Neurologic: Alert, Oriented. Review / Management Results review: No qualifying data available , Lab results 08/21/2022 11:15 EDT [place] History and Physical 08/21/2022 11:13 EDT Lactated Ringers Injection Begin Bag 1,000 mL mL 08/21/2022 11:10 EDT SN - Preop - CTm Pt in SDS Room 08/21/2022 10:35 SN - Preop - CTm Pt Ready for OR/Proced 08/21/2022 11:10 08/21/2022 10:51 EDT Height 155 cm Admission Weight 70.5 kg [place] Body Weight 47.85 kg Apical Heart Rate 79 bpm Respiratory Rate 19 br/min Systolic Blood Pressure Non-Invasive 135 mmHg Diastolic Blood Pressure Non-Invasive 100 mmHg >HHI Primary Pain Intensity 0 Pain Scale Type 0-10 Pain scale Monitor Alarms On and Limits Checked Heart Rhythm Regular Oxygen Therapy Room air Oxygen Saturation 96 % Abdomen Description Non-distended, Soft Abdomen Palpation Non-Tender, Soft Bowel Sounds All Quadrants Present Urinary Elimination Voiding, no difficulties Skin Temperature Warm Skin Description [place], Normal for ethnicity, Dry Skin Integrity Intact Mucous Membrane Color [place] IV Present Present Antecubital Right 08/21/2022 20 gauge Peripheral IV Activity: Insert new site Peripheral IV Dressing Condition: Clean, Dry, Intact Peripheral IV Dressing Activity: Applied, Transparent dressing Peripheral IV Line Status/Patency: Flushes easily, Continuous infusion Peripheral IV Line Care: Secured with tape Peripheral IV Site Condition: No complications Peripheral IV Equipment: Extension set, PRN Adaptor Peripheral IV Number of Attempts: 1 Neurological Symptoms Patient denies Extremity Movement Equal Characteristics of Speech Clear Level of Consciousness Alert Strength All Extremities Strong Tone All Extremities Normal Sensation All Extremities Intact Affect/Behavior Appropriate, Calm, Cooperative Orientation Oriented x 4 Allergies Yes Consent Form Signed Yes Patient Dressed In Hospital gown, No undergarments Pre-op Preparation Glasses removed, Undergarments removed CHG Preoperative Wash/Wipe Night before procedure, Day of procedure History & Physical Update On Chart Yes History & Physical On Chart Yes Obstructive Sleep Apnea Assess Completed Yes Orientation Assessment Oriented x 4 Activity Status ADL Awake, Resting SCD On/Re-applied left knee high NPO Status Maintained Standard Safety ID band on, Allergy Band on, Call device within reach, Bed in low position, Wheels locked, Non-Slip footwear Allergy Band on and Verified Yes Patient ID Band on and Verified Yes Implants Verified Yes Pacemaker/AICD Verified Yes Anesthesia Consent Signed Yes Blood Consent Signed Yes Last Fluid Intake 08/20/2022 19:30 Last Food Intake 08/20/2022 19:00 Last Void 08/21/2022 6:00 08/21/2022 10:48 EDT Infectious Disease Symptoms Patient states no symptoms Safety Brochure Information Reviewed Yes [place] [facility] Teaching Evaluation No further teaching needed Prev Test Positive/Diagnosis w/COVID-19 No Admission Note-Nursing Same Day Patient History (Modified) . Assessment and Plan [place] [employer] (ASA) physical status classification: Class III. Anesthetic Preoperative Plan Premedication: intravenous. Anesthetic technique: MAC. Induction: intravenously. Maintenance airway: Mask. Postoperative pain management: Per surgeon. Risks discussed: nausea, vomiting, headache, sore throat, dental injury, hypotension, allergic reaction, serious complications. Informed consent: signed by patient. Digitally Signed by BRUCE GOLDEN on 08/21/2022 11:26 AM [facility]06-09-2023 Note [place] ADMISSION HISTORY AND PHYSICIAL CHIEF COMPLAINT: HISTORY OF PRESENT ILLNESS: REVIEW OF SYSTEMS: ACTIVE PROBLEMS: (6) CKD (chronic kidney disease) stage 3, GFR 30-59 ml/min ([id number]) Hematuria (034585734) Nephrolithiasis (742939658) Osteoarthritis, knee (525210832) Osteopenia ([id number]) Pain of right thumb ([id number]) MEDICATIONS: Active Inpt Meds: cefOXitin Start: 08/21/22 10:37:00 EDT, Dose = 1 gram(s), IV Piggyback, PREOP pharm, Rate: 200 mL/hr, Infuse over: 30 minute(s), 08/21/22 10:37:00 EDT Active PRN Meds: None One Time Meds: None Active IV Meds: Lactated Ringers Infusion 1000 mL (LR 1000 mL) Start: 08/21/22 10:37:00 EDT, Rate: 125 mL/hr, 08/21/22 10:37:00 EDT ALLERGIES: (1) Boniva FAMILY HISTORY: SOCIAL HISTORY: PHYSICAL EXAM: VITALS: IlhdprUbqbGMDyihyQRGgC9YCB0NbceUf(kg) 08/21 10:51----057102KL64/09 70.5 24 Hr Tmax: No Data Available 36 Hr Tmax: No Data Available Vital Signs are the last 5 in the past 48 hours. Weights display the last 5 within 7 days. Initial Wt: 08/21 70.5 kg 155 lb Current Wt: 08/21 70.5 kg 155 lb GENERAL: HEENT: CARDIOVASCULAR: RESPIRATORY: ABDOMEN: EXREMETIES: NEUROLOGICAL: PSYCHIATRIC: LABS: No 36hr Lab Data DIAGNOSTICS: IMPRESSION: PLAN: History and Physical Update I have examined the patient; reviewed the H&P and there are no changes to the H&P unless noted below. Digitally Signed by JAMIE DE JESUS DPM on 08/21/2022 11:15 AM [facility]11-20-2021 Evaluation + Plan note Diagnostic Tests Pending * Urine Culture 02/01/21 Future Scheduled Tests Radiology* BD Bone Density DEXA Axial Skeleton 08/15/20 [facility] Evaluation + Plan note Future Appointments Appointment Date:02/19/2022 09:30:00 AM Scheduled Provider:ROSY PLUNKETT DO Location:[facility] Appointment Type:[facility] Evaluation + Plan note Future Appointments Appointment Date:08/27/2022 10:30:00 AM Scheduled Provider:ROSY PLUNKETT DO Location:[facility] Appointment Type:PC Wellness Annual [facility] Evaluation + Plan note Future Appointments Appointment Date:09/14/2023 09:30:00 AM Scheduled Provider:ROSY PLUNKETT DO Location:[facility] Appointment Type:PC OV Pre Op Appointment Date:09/21/2023 09:00:00 AM Scheduled Provider:ROSY PLUNKETT DO Location:[facility] Appointment Type: Wellness Medicare [facility] Evaluation + Plan note Future Appointments Appointment Date:10/04/2023 09:00:00 AM Scheduled Provider: Location:[facility] Appointment Type:PT Outpatient Evaluation [facility] Evaluation + Plan note Future Appointments Appointment Date:12/09/2023 08:30:00 AM Scheduled Provider: Location:[facility] Appointment Type:PT Treatment - [facility] Evaluation + Plan note Future Appointments Appointment Date:09/25/2025 08:00:00 AM Scheduled Provider:ROSY PLUNKETT DO Location:[facility] Appointment Type:PC Wellness Medicare Future Scheduled Tests Radiology* MA Mammo Screening Bilateral w/ Rory 09/21/24 * BD Bone Density DEXA Axial Skeleton Adult (21 yrs or older) 09/21/24 [facility] Evaluaerbq noteNo assessment information available [facility] Work Phone: Evaluhrwmy note* Diagnosis Onset Date Resolution Status Admit Date Atrophic vaginitis acute August 212024 8:00am Encounter for routine gynecological examination noneactive August 212024 8:00am [facility] Work Phone: Hospital course Narrative No data available for this section [facility] Hospital Discharge instructions No data available for this section [facility] Progress note No data available for this section [facility] Progress note Author Gladys Delong [facility] Note Date/Time August 21, 2024 8:22a m [facility] [address] [place] [address], [address] [place] [address] OFFICE VISIT Date of Service: 08/21/24 MR#: [id number] Acct: [id number] Name: MARQUIS COBURN Rep #: [id number] : 1955 Provider: ANGELIA Delong Age/Sex: 69/F Location: 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 Is patient in pain?: No Allergies ibandronate sodium (From Boniva) Allergy (Mild, Verified 08/21/24 08:01) Pain in joints Medications ?Medication ?Instructions ?Recorded ?Confirmed ?Type biotin 2,500 mcg capsule 5,000 mcg PO DAILY 03/22/13 08/21/24 History cholecalciferol (vitamin D3) 50 2,000 unit PO BID 10/2608/21/24 History mcg (2,000 unit) tablet (Vitamin D3) yaistypx-vkg-rpaur acid 0.4 1 ea PO DAILY 03/22/1312/07 History mg-lycopene 300 mcg-lutein 250 mcg tablet (Centrum Silver) alendronate 70 mg tablet 70 mg PO Q7D@0700 02/13/19 0 08/21/24 History calcium 315 mg (as 1 tab PO DAILY 08/18/2312/07 History citrate)-vitamin D3 5 mcg (200 unit) tablet (Calcium Citrate + D) lutein 10 mg tablet 10 mg PO DAILY 08/18/2312/07 History potassium citrate 10 mEq (1,080 2,160 mg PO BID 08/21/24 History mg) tablet,extended release antiarthritic combination no.2 900 mg PO 08/21/2412/07 History mg tablet (glucosamine-chondroitin) Is last menstrual period known: No Post menopausal: Yes Patient : No : No PFSH Medical History Kidney stones Surgical History Status post debridement of bone spur History of lithotripsy Social History household members: spouse current occupational status: retired Smoking Status: Never smoker alcohol intake: never substance use type: does not use seatbelt use: always do you feel safe at home: Yes additional social history: - Sushant Soevolved History 2 Elective abortions Hx Para 2 Spontaneous abortions Hx # Term Pregnancies Ectopic pregnancies Hx # Pregnancies Multiple births # of living children 2 Past Pregnancies Del. Date Name GA/Weeks Outcome Route Bth Weight Infant Gen Labor Lgth Anesthesia Del Locatn Provider FOB Unknown Glynn Parker HPI Encounter for routine gynecological examination Details: MARQUIS COBURN is a 69 year old who presents for annual exam. Denies concerns Last PAP: NA History of abnormal PAP: no Last mammogram: 10/2023 History of abnormal mammogram: no Colon cancer screenin Other preventative health care screenings: Fabiola Plunkett Female Reproductive History Questions: metorrhagia: No and sexually active: No ROS Const Constitutional: Denies fatigue, weight gain or weight loss Cardio Card: Denies chest pain Resp Resp: Denies cough or dyspnea on exertion GI GI: Denies abdominal pain, bloating, change in stool character, constipation or vomiting : Reports as per HPI; Denies difficulty voiding, pelvic pain, urinary frequency, urinary incontinence,urinary urgency, vaginal discharge or vaginal pruritus Exam Const General: cooperative, healthy appearing, no acute distress and well developed Orientation: alert, oriented to person and oriented to place HENNY Head: normal to inspection Neck Neck: normal visual inspection Thyroid: thyroid normal Lymphatic: no lymphadenopathy noted Chest Breast inspection: normal inspection of the breasts and normal inspection of theaxillae Breast palpation: normal palpation of the breasts, normal palpation of the axillae and no axillary lymphadenopathy Resp Effort & Inspection: normal respiratory effort GI Palpation: soft, no masses and nontender Rectal Exam: deferred External Female Exam: normal external appearance and normal appearance of the urethra Urethra: normal appearance of the urethra and normal palpation Speculum Exam - Vagina: normal vaginal discharge and vagina atrophic Speculum Exam - Cervix: normal appearance of the cervix Bimanual Exam- Vagina & Uterus: normal bimanual exam, uterine size normal, uterine shape normal and non-tender Bimanual Exam- Adnexa, other: normal adnexae, no masses, normal and non-tender Pelvic Support: normal Neuro General: patient alert and patient oriented x3 Psych Affect: normal affect Coding Level of Care Code Pelvic/Breast Diagnoses Encounter for gynecological examination with abnormal finding Z01.411 Gynecological examination findings: abnormal findings PRESENT Atrophic vaginitis N95.2 Assessment and Plan Assessment and Plan (1) Encounter for routine gynecological examination: Qualifiers: Gynecological examination findings: abnormal findings PRESENT QualifiedCode(s): Z01.411 - Encounter for gynecological examination (general) (routine) with abnormal findings (2) Atrophic vaginitis: Status: Acute Comment: asymptomatic Plan Completed breast and pelvic exam Reviewed diet and exercise; low carb, high fiber. She exercises 3 times a week Pap NA Mammogram ordered breast self exam encouraged monthly Denies symptoms for atrophy or need for intervention Colonoscopy 2019 Bone density with PCP RTO 1 year, prn with problems Gladys Delong ASSOCIATE APPLICATION DEVELOPER 08/21/24 0822 <Electronically signed by Gladys mccray FILLING STATION EQUIPMENT MECHANIC FILLING STATION EQUIPMENT MECHANIC-C> Date _ Gladys Delong FILLING STATION EQUIPMENT MECHANIC FILLING STATION EQUIPMENT MECHANIC-C Cosigner Signature: Date (if applicable) CC: ~ [facility] Work Phone: Reason for referral (narrative)No reason for referral information availableLos [facility] Work Phone: Chief Complaint and Reason for Visit Chief Complaint SCREENING Chief Complaint Admit Date Annual (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) August 21, 2024 8:00a m Reason for Visit Admit Date Atrophic vaginitis August 21, 2024 8:00a m Encounter for routine gynecological exam ination August 21, 2024 8:00am Advance Directives No Advanced Directives Records Found Advance Directive Response Recorded Date/ Time Advance Directives No March 22, 2013 11:16am Living Will No February 13 12:45pm Power of Adjuster No February 13, 2019 12:45pm Advance Directive Response Recorded Date/ Time Advance Directives No March 22, 2013 11:16am Summary Purpose Family History No Family History Records Found Additional Source Comments Care Team (unrecognized sect ion and content) Team Status: Active Member Role Status Dates Dr. Rosy Plunkett DO Family Provider Active Dr. Rosy Plunkett DO Primary Care Provider Activ e Team Status: Inactive Member Role Status Dates Dr. Rosy Plunkett DO Primary Care Provider, Refe rring Provider Active Dr. Elena Beal , Attending Provider Active Team Status: Inactive Member Role Status Dates Dr. Rosy Plunkett DO Primary Care Provider Activ e Dr. Conrad Man MD Attending Provider, Referr ing Provider Active Team Status: Inactive Member Role Status Dates Dr. Rosy Plunkett DO Primary Care Provider Activ e Start: August 21, 2024 End: August 21, 2024 Dr. Rosy Plunkett DO Referring Provider Active Start: August 21, 2024 End: August 21, 2024 Gladys Delong FILLING STATION EQUIPMENT MECHANIC, FILLING STATION EQUIPMENT MECHANIC-C Attending Provider Active Start: August 21, 2024 End: August 21, 2024 Care Team (unrecognized sect ion and content) Personnel Name: ROSY PLUNKETT DO Address: Address: [address] [place] [address] Care Team Personnel Name: ROSY PLUNKETT DO Position: P4 Physician - Primary Care Member Role: Primary Care Physician Address: Address: [address] [place] [address] Care Team Related Persons Name: SUSHANT COBURN Address: Home [address] [place], [place] [id number] Address: [facility] [address] [place], [place] [id number] Care Team Personnel Name: ROSY PLUNKETT DO Position: P4 Physician - Primary Care Member Role: Primary Care Physician Address: Address: [address] [place] [address] [place] [address]- Care Team Related Persons Name: SUSHANT COBURN Address: Home [address] [place], [place] [id number] Address: Temporary [address] [place], [place] [id number] Goals (unrecognized section and content) Goals may be documented in a n alternate section INFORMATION SOURCE (unrecogn ized section and content) DATE CREATED AUTHOR 10/06/2023 [facility] ([place]) DATE CREATED AUTHOR AUTHOR'S ORGANIZ ATION 09/28/2024 [facility] DATE CREATED AUTHOR AUTHOR'S ORGANIZ ATION 10/02/2024 [facility] FOR RECORDS PERTAINING TO PATIENTS WHO ARE OR HAVE BEEN ENROLLED IN A CHEMICAL DEPENDENCY/SUBSTANCEABUSE PROGRAM, SOME INFORMATION MAY BE OMITTED. This clinical summary was aggregated from multiple sources. Caution should be exercised in using it in the provision of clinical care. This summary normalizes information from multiple sources, and as a consequence, information in this document may materially change the coding, format and clinical context of patient data. In addition, data may be omitted in some cases. CLINICAL DECISIONS SHOULD BE BASED ON THE PRIMARY CLINICAL RECORDS. [employer] provides no warranty or guarantee of the accuracy or completeness of information in this document.
== END | disposition home or self-care (01) ==
LOC: RAD 07:56
PROVIDERS: Referring Provider Urology; Visit Provider Urology
DX: N20.0 Calculus of kidney (principal)
CPT/HCPCS: 74018

== ENCOUNTER → 2024-11-09 | Outpatient (CLI) | payer MEDICARE, OTHER, SELFPAY ==
--- NOTE | 2024-11-09 07:51 | BI_ITS ---
EXAM: SCRN MAMM (CAD)W/BRANDAN BILAT DATE: 11/09/2024 CLINICAL HISTORY: F, Age 69 y/o , SCREENING MAMMOGRAM FOR BREAST CANCER No family history. TECHNIQUE: SCRN MAMM (CAD)W/BRANDAN BILAT COMPARISON: Prior exam(s) dated November 03, 2023.. FINDINGS: TISSUE DENSITY: There are scattered areas of fibroglandular density. Bilateral Breast Mammographic Findings: There is a 6 mm x 4.3 mm well-defined nodule in the slightly upper central retroareolar region of the right breast. Correlation with ultrasound recommended. No cluster of microcalcification is seen. BI/SCRN MAMM (CAD)W/BRANDAN BILAT IMPRESSION: 6 mm x 4.3 mm well-defined nodule in the slightly upper central retroareolar re gion of the right breast as described. Sonographic correlation recommended. OVERALL FINAL ASSESSMENT BI-RADS 0: INCOMPLETE - NEED ADDITIONAL IMAGING EVALUATION. RECOMMENDATION: Ultrasound Recommended A letter with findings and recommendations will be mailed to the patient. Reading Location: [facility]
--- OUTSIDE RECORDS SUMMARY | 2024-11-09 08:10 | XMS RPT_ITS | CCD ---
Author Organization [facility] CliniSyal Care Team Providers Care Gas Leak Inspector Helper Name Role Phone DIMITRIOS KHAN, DR GALLEGOS Primary Care Physician OSCAR VALVERDE, DR XIMENA Fitzpatrick Attending Unavailab le DIMITRIOS KHAN, DR GALLEGOS Primary Care Unavailable DIMITRIOS KHAN, DR GALLEGOS Attending Unavailable DIMITRIOS , DR GALLEGOS Primary Care Unavailable DIMITRIOS KHAN, DR GALLEGOS Attending Unavailable DIMITRIOS DO, DR GALLEGOS Primary Care Unavailable BRIANNE FERGUSON PA-C Attending Unavailable DIMITRIOS KHAN, DR GALLEGOS Primary Care Unavailable Dimitrios KHAN, Dr. Rosy Alfredo Primary Care Provider Dimitrios KHAN, Dr. Rosy Alfredo Referring Provider [phone] Baljeet TOLENTINOCGladys Attending Provider DIMITRIOS KHAN, DR GALLEGOS Attending Unavailable DIMITRIOS KHAN, DR GALLEGOS Primary Care Unavailable DIMITRIOS KHAN, DR GALLEGOS Primary Care Unavailable BRIANNE FERGUSON PA-C Attending Unavailable Angelica VALVERDE, Dr. Conrad Zamora Attending Provider Angelica VALVERDE, Dr. Conrad Zamora Referring Provider Rosy Plunkett Primary Care Unavailable Conrad Man Attending Unavailable Conrad Man Referring Unavailable Rosy Plunkett Consulting Unavailable Gladys Delong NP Attending Unavailable Gladys Delong NP Referring Unavailable Rosy Plunkett Primary Care Unavailable Rosy Plunkett Primary Care Unavailable Conrad Man Attending Unavailable Conrad Man Referring Unavailable Rosy Plunkett Primary Care Unavailable Rosy Plunkett Referring Unavailable Baljeet NUDE MODELGladys Attending Unavailable Allergies Allergy Classification Reported Allergen(s) Allergy Type Date of Onset Reaction(s) Facility Ibandronate (1 source) Ibandronate; Translations: [ibandronate] Drug Allergy Myalgia [facility] (14 sources) Ibandronate; Translations: [ibandronate] Drug Allergy Myalgia [facility] (2 sources) Ibandronate Drug Allergy 5 Pain in joints [facility] (1 source) Ibadronate Drug Allergy 5 [facility] Repository Medications Current Medications Medication Drug Class(es) Dates Sig (Normalized) Sig (Original) alendronic acid 70 mg oral tablet (20 sources) Bisphosphonate Start: 02-13-2019 alendronate 70 mg oral tablet Dose : 70 mg = 1 tab(s), Oral, qWeek, # 12 tab(s), 3 Refill(s), Pharmacy: [facility]/pharmacy #[id number], 154.4, cm, 09/21/24 8:16:00 EDT, Height, kg, 09/21/24 8:16:00 EDT, Dosing Weight Start Date: 09/21/24 Status: Ordered Quantity: 12.0 Unit: tab(s) Repeat number: 4 Antiarthritic Combination No.2 (Glucosamine-Chondr oitin) 900 mg tablet (2 sources) Start: 08-21-2024 Antiarthritic Combination No.2 (Glucosamine-Chond roitin) 900 mg tablet Active mg PO August 21, 2024 12:00am baclofen 5 mg oral tablet (3 sources) gamma-Aminobutyric Acid-ergic Agonist Start: 03-12-2022 baclofen 5 mg oral tablet Dose : 5 mg = 1 tab(s), Oral, TID, PRN as needed for muscle spasm, # 30 tab(s), 0 Refill(s), Pharmacy: [facility]/pharmacy #[id number], 155, cm, 03/10/22 14:33:00 EST, Height Start Date: 03/12/22 Status: Ordered Biotin (20 sources) Start: 08-24-2019 biotin Oral, qDay, 0 [...] mg / cholecalciferol 200 unt oral tablet (2 sources) Vitamin D Start: 08-18-2023 Calcium Citrate-Vitamin D3 [...] Start: 08-24-2019 take 1 tablet by ricardo th once daily Centrum Silver oral tablet Oral, qDay, 0 Refill(s) Start Date: 08/24/19 Status: Ordered cholecalciferol 0.05 mg oral tablet (5 sources) Vitamin D Start: 03-22-2013 take 1 tablet by mouth twice daily Cholecalciferol (Vitamin D3) (Vitamin D3) 2,000 UNIT tablet Active 2000 U PO TWICE A DAY March 22, 2013 1:00am Chondroitin Sulfates / Glucosamine / methylsulfonylmethane (6 sources) Start: 08-15-2020 chondroitin/glucosam ine/methylsulfonylme yordy 0 Refill(s) Start Date: 08/15/20 Status: Ordered Start: 03-22-2013 End: 08-18-2023 take 1 tablet by mouth twice daily Glucosamine Rhy-Dgd-Nizcgzzmpr 1 EACH tablet Discontinued 2 NMA PO TWICE A DAY March 22, 2013 1:00am August 18, 2023 2:43pm Start: 03-22-2013 Glucosamine Hc b-Jat-Kzzckfkikf Active 2 EACH PO TWICE A DAY March 22, 2013 1:00am lutein 10 mg oral tablet (8 sources) Start: 08-18-2023 take 1 tablet by [...] 0 Refill(s) Start Date: 08/19/21 Status: Ordered Yqsszdxu-Uxc-Bw-Lycopen-Lute in (Centrum Silver Tablet) 1 EACH tablet (5 sources) Start: 03-22-2013 Rvdqzflx-Bgc-Dp-Lycopen-Lute in (Centrum Silver Tablet) 1 EACH tablet Active 1 NMA PO DAILY March 22, 2013 1:00am Start: 03-22-2013 Vngyyvrj-Dst-L n-Zyjuwxn-Vjjjki (Centrum Silver Tablet) 1 EACH tablet Active 1 EACH PO DAILY March 22, 2013 1:00am potassium citrate 10 meq extended release oral tablet (20 sources) Start: 08-18-2023 take 1 tablet by mouth twice daily Potassium Citrate 10 mEq (1,080 mg) tablet extended release Active 2160 mg PO TWICE A DAY August 18, 2023 12:00am Start: 12-17-2018 take 1 tablet by ricardo th twice daily potassium citrate 10 mEq oral [...] day(s), # 14 tab(s), 0 Refill(s), Pharmacy: [facility]/pharmacy #[id number], 155, cm, 02/01/21 10:48:00 EST, Height, [...] acetaminophen 650 mg extended release oral tablet (7 sources) Start: 08-18-2023 End: 08-21-2024 take 1 [...] / HYDROcodone bitartrate 5 mg oral tablet (5 sources) Opioid Agonist Start: 02-15-2019 End: 03-01-2019 Hydrocodone-Acetaminophen 1 EACH tablet Discontinued 1 NMA PO EVERY 4 HOURS NEEDED as needed for Pain Score 1-10/10 14 5 0 February 15, 2019 February 19, 2019 1:00am March 01, 2019 1:10am Personal history of urinary calculi Start: 02-15-2019 End: 03-01-2019 Hydrocodone-Acetaminophen Di scontinued 1 EACH PO EVERY 4 HOURS NEEDED 14 5 February 15, 2019 March 01, 2019 1:10am aspirin 81 mg delayed release oral tablet (5 sources) Platelet Aggregation Inhibitor, Nonsteroidal Anti-inflammatory Drug Start: 03-22-2013 End: 08-18-2023 take 1 tablet by mouth once daily Aspirin 81 MG tablet Discontinued 81 mg PO DAILY@0800 March 22, 2013 1:00am August 18, 2023 2:42pm calcium carbonate 1500 mg / cholecalciferol 0.01 mg oral tablet (5 sources) Vitamin D Start: 03-22-2013 End: 08-18-2023 Calcium Carbonate-Vitamin D3 (Calcium 600 + Vit D Tablet) 1 EACH tablet Discontinued 1 NMA PO TWICE A DAY March 22, 2013 1:00am August 18, 2023 2:43pm ciprofloxacin 500 mg oral tablet (5 sources) Quinolone Antimicrobial Start: 02-15-2019 End: 08-18-2023 take 1 tablet by mouth twice daily Ciprofloxacin Hcl 500 MG tablet Discontinued 500 mg PO TWICE A DAY 6 0 February 15, 2019 1:00am August 18, 2023 2:43pm citrcal (15 sources) Start: 08-11-2019 citrcal citrcal, 2 tab(s), Oral, Daily, 0 Refill(s), 61.5 Start Date: 08/11/19 Status: Ordered Repeat number: 1 Start: 08-11-2019 citrcal citrca l, 2 tab(s), Oral, Daily, 0 Refill(s), 61.5 Start Date: 08/11/19 Status: Ordered Start: 08-11-2019 citrcal citrca l, 0 Refill(s), 61.5 Start Date: 08/11/19 Status: Ordered Problems Problem Classification Problem Date Documented Date Episodic/Chronic Calculus of urinary tract (16 sources) Kidney stone; Translations: [Calculus of kidney] Onset: 10-10-2024 08-15-2020 Episodic Chronic kidney disease (15 sources) Chronic kidney disease stage 3 01-10-2021 Chronic Chronic kidney disease (1 source) Chronic kidney disease; Translations: [Chronic kidney disease, stage 3 unspecified] Onset: 09-21-2024 Genitourinary symptoms and ill-defined conditions (11 sources) Blood in urine 02-01-2021 Episodic Menopausal disorders (4 sources) Atrophic vaginitis; Translations: [Postmenopausal atrophic vaginitis] 08-21-2024 Chronic Comment on above: asymptomatic Osteoarthritis (14 sources) Osteoarthritis of knee; Translations: [Arthritis] 02-18-2022 [...] of left knee, not elsewhere classified] Episodic Other screening for suspected conditions (not mental disorders or infectious disease) (1 source) Encounter for screening mammogram for malignant neoplasm of breast; Translations: [Encounter for screening mammogram for malignant neoplasm of breast] Onset: 11-03-2024 Episodic Residual codes; unclassified (6 sources) Postmenopausal state 09-22-2022 Episodic Results Test Name Value Interpretation Reference Range Facility Abdomen Single Viewon 2024 Abdomen Single View [facility] [address] [place], [place] [id number] Abdomen Single View MR#: [id number] Acct: [id number] Name: MARQUIS COBURN Rep #: [id number] : [id number] F [id number] From: Jose J Vega MD PCP: Dr. Rosy Plunkett DO Status: REG CLI Study: Abdomen Single View Date of Exam: 10/03/24 Exam# [id number] Ordering Dr: Conrad Man MD PROCEDURE: ABDOMEN SINGLE VIEW 10/03/2024 REASON FOR EXAM: CALCULUS OF KIDNEY TECHNIQUE: ABDOMEN SINGLE VIEW COMPARISON: 12/27/2023 FINDINGS: Extensive bilateral nephrolithiasis, there are more than 10 renal stones on each side. Largest measures 6 mm on the left and 7 mm on the right. 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 No definite ureteral stone. Scoliosis. Nondistended bowel. 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 Reading Location: [place] [address] CC: Dr. Conrad Man MD; Dr. Rosy Plunkett DO Take Down Inspector: Signed Normal [facility] .Auto Diffon 09-21-2024 Basophil, Absolute 0.1 10 3/mcL Normal 0.0-0.3 [facility] Comment on above: Performed By: #### A DINA, CBC, CMP, MORPH, VIDH, TSH, GFR, ADIFF #### [address] [address] Basophils/100 WBC (Bld) 1.3 % Normal 0.0-2.5 [facility] Comment on above: Performed By: #### A DINA, CBC, CMP, MORPH, VIDH, TSH, GFR, ADIFF #### [place] [address] [place], [place] [address] Eosinophil, Absolute 0.1 10 3/mcL Normal 0.0-0.7 [facility] Comment on above: Performed By: #### A DINA, CBC, CMP, MORPH, VIDH, TSH, GFR, ADIFF #### [place] [address] [place], [place] [address] Eosinophils/100 WBC (Bld) 1.2 % Normal 0.0-6.0 [facility] Comment on above: Performed By: #### A DINA, CBC, CMP, MORPH, VIDH, TSH, GFR, ADIFF #### [address] [address] Lymphocyte, Absolute 1.7 10 3/mcL Normal 0.9-4.3 [facility] Comment on above: Performed By: #### A DINA, CBC, CMP, MORPH, VIDH, TSH, GFR, ADIFF #### [address] [address] Lymphocytes/100 WBC (Bld) 36.0 % Normal 20.0-40.0 [facility] Comment on above: Performed By: #### A DINA, CBC, CMP, MORPH, VIDH, TSH, GFR, ADIFF #### [address] [address] Monocyte, Absolute 0.4 10 3/mcL Normal 0.1-1.4 [facility] Comment on above: Performed By: #### A DINA, CBC, CMP, MORPH, VIDH, TSH, GFR, ADIFF #### [address] [address] Monocytes/100 WBC (Bld) 7.7 % Normal 2.0-13.0 [facility] Comment on above: Performed By: #### A DINA, CBC, CMP, MORPH, VIDH, TSH, GFR, ADIFF #### [address] [address] Neutrophils/100 WBC (Bld) 53.8 % Normal 50.0-75.0 [facility] Comment on above: Performed By: #### A DINA, CBC, CMP, MORPH, VIDH, TSH, GFR, ADIFF #### [address] [address] .GFRon 09-21-2024 Estimated Glomerular Filtration Rate 55 ml/min/1.73sqm Normal [facility] Comment on above: Result Comment: [...] CMP, MORPH, VIDH, TSH, GFR, ADIFF #### [address] [address] .Morphon 09-21-2024 Platelet Estimate Normal Normal [facility] Comment on above: Performed By: #### A DINA, CBC, CMP, MORPH, VIDH, TSH, GFR, ADIFF #### [place] [address] .NEUABSon 09-21-2024 Neutrophil, Absolute 2.6 10 3/mcL Normal 2.3-8.1 [facility] Comment on above: Performed By: #### A DINA, CBC, CMP, MORPH, VIDH, TSH, GFR, ADIFF #### [address] [address] CBCon 09-21-2024 Erythrocyte distribution width (RBC) [Ratio] 13.4 % Normal 11.5-15.5 [facility] Comment on above: Performed By: #### A DINA, CBC, CMP, MORPH, VIDH, TSH, GFR, ADIFF #### [address] [address] Hematocrit (Bld) [Volume fraction] 42.3 % Normal 34.0-46.0 [facility] Comment on above: Performed By: #### A DINA, CBC, CMP, MORPH, VIDH, TSH, GFR, ADIFF #### [address] [address] Hgb 14.8 G/dL Normal 12.0-16.0 [facility] Comment on above: Performed By: #### A DINA, CBC, CMP, MORPH, VIDH, TSH, GFR, ADIFF #### [address] [address] MCH (RBC) [Entitic mass] 32.0 pg Normal 27.0-33.0 [facility] Comment on above: Performed By: #### A DINA, CBC, CMP, MORPH, VIDH, TSH, GFR, ADIFF #### [address] [address] MCHC 35.0 G/dL Normal 32.0-36.0 [facility] Comment on above: Performed By: #### A DINA, CBC, CMP, MORPH, VIDH, TSH, GFR, ADIFF #### [address] [address] MCV (RBC) [Entitic vol] 91.3 fL Normal 80.0-99.0 [facility] Comment on above: Performed By: #### A DINA, CBC, CMP, MORPH, VIDH, TSH, GFR, ADIFF #### [address] [address] Platelet 245 10 3/mcL Normal 150-450 [facility] Comment on above: Performed By: #### A DINA, CBC, CMP, MORPH, VIDH, TSH, GFR, ADIFF #### [address] [address] Platelet mean volume (Bld) [Entitic vol] 8.3 fL Normal 6.6-10.5 [facility] Comment on above: Performed By: #### A DINA, CBC, CMP, MORPH, VIDH, TSH, GFR, ADIFF #### [address] [address] RBC 4.64 10 6/mcL Normal 4.10-5.30 [facility] Comment on above: Performed By: #### A DINA, CBC, CMP, MORPH, VIDH, TSH, GFR, ADIFF #### [address] [address] WBC 4.7 10 3/mcL Normal 4.5-10.8 [facility] Comment on above: Performed By: #### A DINA, CBC, CMP, MORPH, VIDH, TSH, GFR, ADIFF #### [address] [address] CMPon 09-21-2024 Albumin Level 4.0 G/dL Normal 3.4-4.8 [facility] Comment on above: Performed By: #### A DINA, CBC, CMP, MORPH, VIDH, TSH, GFR, ADIFF #### [address] [address] Albumin/Globulin [Mass ratio] 1.1 {ratio} Normal 1.1-2.5 [facility] Comment on above: Performed By: #### A DINA, CBC, CMP, MORPH, VIDH, TSH, GFR, ADIFF #### [address] [address] ALP [Catalytic activity/Vol] 100 U/L Normal 40-135 [facility] Comment on above: Performed By: #### A DINA, CBC, CMP, MORPH, VIDH, TSH, GFR, ADIFF #### [address] [address] ALT [Catalytic activity/Vol] 20 U/L Normal 14-59 [facility] Comment on above: Performed By: #### A DINA, CBC, CMP, MORPH, VIDH, TSH, GFR, ADIFF #### [address] [address] AST [Catalytic activity/Vol] 19 U/L Normal 10-40 [facility] Comment on above: Performed By: #### A DINA, CBC, CMP, MORPH, VIDH, TSH, GFR, ADIFF #### [address] [address] Bili Total 1.4 mg/dL High 0.2-1.0 [facility] Comment on above: Result Comment: Use of this assay is not recommended for patients undergoing treatment with eltrombopag due to the potential for falsely elevated results. Performed By: #### A DINA, CBC, CMP, MORPH, VIDH, TSH, GFR, ADIFF #### [address] [address] BUN/Creatinine Ratio 12 ratio Normal 7-27 [facility] Comment on above: Performed By: #### A DINA, CBC, CMP, MORPH, VIDH, TSH, GFR, ADIFF #### [address] [address] Calcium [Mass/Vol] 9.8 mg/dL Normal 8.4-10.2 [facility] Comment on above: Performed By: #### A DINA, CBC, CMP, MORPH, VIDH, TSH, GFR, ADIFF #### [place] [address] Chloride [Moles/Vol] 105 mmol/L Normal 98-107 [facility] Comment on above: Performed By: #### A DINA, CBC, CMP, MORPH, VIDH, TSH, GFR, ADIFF #### [place] [address] CO2 [Moles/Vol] 30 mmol/L Normal 23-31 [facility] Comment on above: Performed By: #### A DINA, CBC, CMP, MORPH, VIDH, TSH, GFR, ADIFF #### [address] [address] Creatinine [Mass/Vol] 1.10 mg/dL High 0.51-0.95 [facility] Comment on above: Performed By: #### A DINA, CBC, CMP, MORPH, VIDH, TSH, GFR, ADIFF #### [address] [address] Electrolyte Balance 7.0 mEq/L Normal 4.0-15.0 [facility] Comment on above: Performed By: #### A DINA, CBC, CMP, MORPH, VIDH, TSH, GFR, ADIFF #### [address] [address] Globulin 3.8 G/dL Normal 2.7-4.4 [facility] Comment on above: Performed By: #### A DINA, CBC, CMP, MORPH, VIDH, TSH, GFR, ADIFF #### [address] [address] Glucose [Mass/Vol] 104 mg/dL Normal 80-115 [facility] Comment on above: Performed By: #### A DINA, CBC, CMP, MORPH, VIDH, TSH, GFR, ADIFF #### [address] [address] Potassium [Moles/Vol] 5.0 mmol/L Normal 3.5-5.1 [facility] Comment on above: Performed By: #### A DINA, CBC, CMP, MORPH, VIDH, TSH, GFR, ADIFF #### [address] [address] Sodium [Moles/Vol] 142 mmol/L Normal 136-145 [facility] Comment on above: Performed By: #### A DINA, CBC, CMP, MORPH, VIDH, TSH, GFR, ADIFF #### [address] [address] Total Protein 7.8 G/dL Normal 6.4-8.2 [facility] Comment on above: Performed By: #### A DINA, CBC, CMP, MORPH, VIDH, TSH, GFR, ADIFF #### [address] [address] Urea nitrogen [Mass/Vol] 13 mg/dL Normal 7-18 [facility] Comment on above: Performed By: #### A DINA, CBC, CMP, MORPH, VIDH, TSH, GFR, ADIFF #### [address] [address] LABORATORYOrdered By: SYSTEM SYSTEM on 09-21-2024 25-hydroxyvitamin [...] 09-21-2024 TSH Qn 2.71 m[IU]/L Normal 0.36-3.74 [facility] Comment on above: Performed By: #### A DINA, CBC, CMP, MORPH, VIDH, TSH, GFR, ADIFF #### [address] [address] VIDHon 09-21-2024 Vit. D 25-Hydroxy 57.7 ng/mL Normal [facility] Comment on above: Result Comment: Inte rpretive Values Based on Total 25(OH) Vitamin D: Deficient <20 ng/mL Insufficient 20 - <30 ng/mL Sufficient 30-100 ng/mL Performed By: #### A DINA, CBC, CMP, MORPH, VIDH, TSH, GFR, ADIFF #### [place] [address] [place], [place] [address] Group Insurance Special Agent Office Visit Reporton 08-21-2024 Group Insurance Special Agent Office Visit Report [facility]'[address], [address] [place] [address] OFFICE VISIT Date of Service: 08/21/24 MR#: [id number] Acct: [id number] Name: MARQUIS COBURN Rep #: [id number] : 1955 Provider: ANGELIA fajardo Age/Sex: 69/F Location: [facility] Status: Signed Intake Vital Signs 08/18/23 14:41 08/21/24 08:01 08/21/24 08:08 Height 5 ft 1 in 5 ft 1 in 5 ft 1 in Weight: 158 lb 2 oz BMI 29.8 BP 134/86 H Intake Visit 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) Chief Complaint: Annual Account Resolution Specialist Required: No Is patient in pain?: No Allergies ibandronate sodium (From Boniva) Allergy (Mild, Verified 08/21/24 08:01) Pain in joints Medications ???Medication ???Instructions ???Recorded ???Confirmed ???Type biotin 2,500 mcg capsule 5,000 mcg PO DAILY 03/22/13 History cholecalciferol (vitamin D3) 50 2,000 unit PO BID 03/22/13 5 History mcg (2,000 unit) tablet (Vitamin D3) jdhzlunu-mqm-aiebp acid 0.4 1 ea PO DAILY 03/22/13 [...] home: Yes additional social history: - [facility] [employer] [facility] History 2 Elective abortions Hx Para 2 Spontaneous abortions Hx # Term Pregnancies Ectopic pregnancies Hx # Pregnancies Multiple births # of living children 2 Past Pregnancies Del. Date Name GA/Weeks Outcome Route Bth Weight Gen Labor Lgth Anesthesia Del Locatn Provider [...] oriented to person and oriented to place HENDC Head: normal to inspection Neck Neck: normal [...] gynecological examinatio (more content not included)... Normal [facility] Abdomen Single Viewon 2023 Abdomen Single View [facility] [address] [place] [address] Abdomen Single View MR#: [id number] Acct: [id number] Name: MARQUIS COBURN Rep #: [id number] : 1955 F [id number] From: Hailey Rocha MD PCP: Dr. Rosy Plunkett DO Status: REG CLI Study: Abdomen Single View Date of Exam: 12/27/23 Exam# [id number] Ordering Dr: Conrad Man MD [id number] INDICATION: KIDNEY STONE EXAMINATION/TECHNIQU E: X-RAY - [...] Conrad Man MD; Dr. Rosy Plunkett DO Take Down Inspector: Signed Normal [facility] A1Con 09-21-2023 HbA1c (Bld) [Mass fraction] 5.5 % Normal 4.3-6.4 [facility] ([place]) Comment on above: Performed By: #### T SH, VIDH, ANEU, MORPH, CMP, CBC, ADIFF, LIPID, GFR #### [place] [id number] [place], [place] [address] LABORATORYOrdered By: SYSTEM SYSTEM on 09-21-2023 25-hydroxyvitamin D3 [Mass/Vol] 49.4 ng/mL Invalid Interpretation Code AO ADM SS Comment on above: Interpretive Data: I nterpretive Values Based on Total 25(OH) Vitamin D: Deficient <20 ng/mL Insufficient 20 - <30 ng/mL Sufficient 30-100 ng/mL HbA1c (Bld) [Mass fraction] 5.5 % Normal 4.3 - 6.4 % AO ADM SS LABORATORYOrdered By: Roxanne Kendall on 09-21-2023 Cholesterol [Mass/Vol] 199 mg/dL Normal 0 - 200 mg/dL AO ADM SS Comment on above: Interpretive Data: C holesterol Reference Interval: Less than 200 Desirable 200-239 Borderline high risk 240 and above High risk Cholesterol in HDL [Mass/Vol] 92 mg/dL High 40 - 60 mg/dL AO ADM SS Cholesterol in LDL [Mass/Vol] 94 mg/dL Normal 0 - 130 mg/dL AO ADM SS Triglyceride [Mass/Vol] 67 mg/dL Normal 0 - 150 mg/dL AO ADM SS Comment on above: Interpretive Data: T riglyceride Reference Interval: Less than 150 Normal 150-199 Borderline high risk 200-499 High risk 500 or higher Very high risk LIPIDon 09-21-2023 Cholesterol [Mass/Vol] 199 mg/dL Normal 0-200 [facility] ([place]) Comment on above: Result Comment: Chol esterol Reference Interval: Less than 200 Desirable 200-239 Borderline high risk 240 and above High risk Performed By: #### T SH, VIDH, ANEU, MORPH, CMP, CBC, ADIFF, LIPID, GFR #### [address] [place] [address] [place], [place] [address] Cholesterol in HDL [Mass/Vol] 92 mg/dL High 40-60 [facility] ([place]) Comment on above: Performed By: #### T SH, VIDH, ANEU, MORPH, CMP, CBC, ADIFF, LIPID, GFR #### [address] [address] Cholesterol in LDL [Mass/Vol] 94 mg/dL Normal 0-130 [facility] ([place]) Comment on above: Performed By: #### T SH, VIDH, ANEU, MORPH, CMP, CBC, ADIFF, LIPID, GFR #### [address] [address] Triglyceride [Mass/Vol] 67 mg/dL Normal 0-150 [facility] ([place]) Comment on above: Result Comment: Trig lyceride Reference Interval: Less than 150 Normal 150-199 Borderline high risk 200-499 High risk 500 or higher Very high risk Performed By: #### T SH, VIDH, ANEU, MORPH, CMP, CBC, ADIFF, LIPID, GFR #### [address] [address] VIDHon 09-21-2023 Vit. D 25-Hydroxy 49.4 ng/mL Normal [facility] ([place]) Comment on above: Result Comment: Inte rpretive Values Based on Total 25(OH) Vitamin D: Deficient <20 ng/mL Insufficient 20 - <30 ng/mL Sufficient 30-100 ng/mL Performed By: #### T SH, VIDH, ANEU, MORPH, CMP, CBC, ADIFF, LIPID, GFR #### [address] [address] .Auto Diffon 09-07-2023 Basophil, Absolute 0.1 10 3/mcL Normal 0.0-0.2 [facility] ([place]) Comment on above: Performed By: #### T SH, VIDH, ANEU, MORPH, CMP, CBC, ADIFF, LIPID, GFR #### [address] [address] Basophils/100 WBC (Bld) 1.0 % Normal 0.0-2.5 [facility] ([place]) Comment on above: Performed By: #### T SH, VIDH, ANEU, MORPH, CMP, CBC, ADIFF, LIPID, GFR #### [address] [address] Eosinophil, Absolute 0.0 10 3/mcL Normal 0.0-0.4 [facility] ([place]) Comment on above: Performed By: #### T SH, VIDH, ANEU, MORPH, CMP, CBC, ADIFF, LIPID, GFR #### [address] [address] Eosinophils/100 WBC (Bld) 0.9 % Normal 0.0-7.0 [facility] ([place]) Comment on above: Performed By: #### T SH, VIDH, ANEU, MORPH, CMP, CBC, ADIFF, LIPID, GFR #### [address] [address] Lymphocyte, Absolute 1.8 10 3/mcL Normal 0.8-3.9 [facility] ([place]) Comment on above: Performed By: #### T SH, VIDH, ANEU, MORPH, CMP, CBC, ADIFF, LIPID, GFR #### [address] [address] Lymphocytes/100 WBC (Bld) 33.4 % Normal 10.0-50.0 [facility] ([place]) Comment on above: Performed By: #### T SH, VIDH, ANEU, MORPH, CMP, CBC, ADIFF, LIPID, GFR #### [address] [address] Monocyte, Absolute 0.3 10 3/mcL Normal 0.2-1.0 [facility] [facility] ([place] Comment on above: Performed By: #### T SH, VIDH, ANEU, MORPH, CMP, CBC, ADIFF, LIPID, GFR #### [address] [address] Monocytes/100 WBC (Bld) 5.9 % Normal 1.7-13.0 [facility] ([place]) Comment on above: Performed By: #### T SH, VIDH, ANEU, MORPH, CMP, CBC, ADIFF, LIPID, GFR #### [address] [address] Neutrophils/100 WBC (Bld) 58.8 % Normal 37.0-80.0 [facility] ([place]) Comment on above: Performed By: #### T SH, VIDH, ANEU, MORPH, CMP, CBC, ADIFF, LIPID, GFR #### [address] [address] .GFRon 09-07-2023 GFR 63 ml/min/1.73sqm Normal [facility] ([place]) Comment on above: Result Comment: GFR [...] MORPH, CMP, CBC, ADIFF, LIPID, GFR #### [address] [address] GFR Non- 52 ml/min/1.73sqm Normal [facility] ([place] Comment on above: Result Comment: GFR [...] MORPH, CMP, CBC, ADIFF, LIPID, GFR #### [address] [address] .NEUABSon 09-07-2023 Neutrophil, Absolute 3.1 10 3/mcL Normal 2.9-6.2 [facility] ([place]) Comment on above: Performed By: #### T SH, VIDH, ANEU, MORPH, CMP, CBC, ADIFF, LIPID, GFR #### [address] [address] ALBon 09-07-2023 Albumin Level 4.0 G/dL Normal 3.4-4.8 [facility] ([place]) Comment on above: Performed By: #### T SH, VIDH, ANEU, MORPH, CMP, CBC, ADIFF, LIPID, GFR #### [address] [address] BMPon 09-07-2023 BUN/Creatinine Ratio 17 ratio Normal 7-27 [facility] ([place]) Comment on above: Performed By: #### T SH, VIDH, ANEU, MORPH, CMP, CBC, ADIFF, LIPID, GFR #### [address] [address] Calcium [Mass/Vol] 9.2 mg/dL Normal 8.4-10.2 [facility] ([place] Comment on above: Performed By: #### T SH, VIDH, ANEU, MORPH, CMP, CBC, ADIFF, LIPID, GFR #### [address] [address] Chloride [Moles/Vol] 105 mmol/L Normal 98-107 [facility] ([place]) Comment on above: Performed By: #### T SH, VIDH, ANEU, MORPH, CMP, CBC, ADIFF, LIPID, GFR #### [address] [address] CO2 [Moles/Vol] 28 mmol/L Normal 23-31 [facility] ([place] Comment on above: Performed By: #### T SH, VIDH, ANEU, MORPH, CMP, CBC, ADIFF, LIPID, GFR #### [address] [address] Creatinine [Mass/Vol] 1.05 mg/dL High 0.55-1.02 [facility] ([place]) Comment on above: Performed By: #### T SH, VIDH, ANEU, MORPH, CMP, CBC, ADIFF, LIPID, GFR #### [address] [address] Electrolyte Balance 12.0 mEq/L Normal 4.0-15.0 [facility] ([place]) Comment on above: Performed By: #### T SH, VIDH, ANEU, MORPH, CMP, CBC, ADIFF, LIPID, GFR #### [address] [address] Glucose [Mass/Vol] 107 mg/dL Normal 80-115 [facility] ([place] Comment on above: Performed By: #### T SH, VIDH, ANEU, MORPH, CMP, CBC, ADIFF, LIPID, GFR #### [address] [address] Potassium [Moles/Vol] 3.8 mmol/L Normal 3.5-5.1 [facility] ([place]) Comment on above: Performed By: #### T SH, VIDH, ANEU, MORPH, CMP, CBC, ADIFF, LIPID, GFR #### [address] [address] Sodium [Moles/Vol] 145 mmol/L Normal 136-145 [facility] ([place] Comment on above: Performed By: #### T SH, VIDH, ANEU, MORPH, CMP, CBC, ADIFF, LIPID, GFR #### [address] [address] Urea nitrogen [Mass/Vol] 18 mg/dL Normal 7-18 [facility] ([place]) Comment on above: Performed By: #### T SH, VIDH, ANEU, MORPH, CMP, CBC, ADIFF, LIPID, GFR #### [address] [address] CBCon 09-07-2023 Erythrocyte distribution width (RBC) [Ratio] 13.5 % Normal 11.5-14.5 [facility] ([place] Comment on above: Performed By: #### C BC, GFR, ADIFF, ANEU, BMP, ALB #### [address] [address] Hematocrit (Bld) [Volume fraction] 40.3 % Normal 37.0-47.0 [facility] ([place]) Comment on above: Performed By: #### C BC, GFR, ADIFF, ANEU, BMP, ALB #### [place] [id number] Hgb 14.4 G/dL Normal 12.0-16.0 [facility] ([place] Comment on above: Performed By: #### C BC, GFR, ADIFF, ANEU, BMP, ALB #### [address] [address] MCH (RBC) [Entitic mass] 33.6 pg High 27.0-31.2 [facility] ([place] Comment on above: Performed By: #### C BC, GFR, ADIFF, ANEU, BMP, ALB #### [address] [address] MCHC 35.8 G/dL Normal 33.0-37.0 [facility] ([place] Comment on above: Performed By: #### C BC, GFR, ADIFF, ANEU, BMP, ALB #### [address] [address] MCV (RBC) [Entitic vol] 93.8 fL Normal 80.0-94.0 [facility] ([place]) Comment on above: Performed By: #### C BC, GFR, ADIFF, ANEU, BMP, ALB #### [address] [address] Platelet 270 10 3/mcL Normal 130-400 [facility] ([place] Comment on above: Performed By: #### C BC, GFR, ADIFF, ANEU, BMP, ALB #### [address] [address] Platelet mean volume (Bld) [Entitic vol] 7.8 fL Normal 7.4-10.4 [facility] ([place]) Comment on above: Performed By: #### C BC, GFR, ADIFF, ANEU, BMP, ALB #### [place] [address] [address] RBC 4.29 10 6/mcL Normal 4.20-5.40 [facility] ([place] Comment on above: Performed By: #### C BC, GFR, ADIFF, ANEU, BMP, ALB #### [address] [address] WBC 5.3 10 3/mcL Normal 4.6-10.8 [facility] ([place]) Comment on above: Performed By: #### C BC, GFR, ADIFF, ANEU, BMP, ALB #### [address] [address] [address] KNEE W/O CONTRAST LEFTon 09-07-2023 CT [...] 09/07/2023 11:53:31 AM Ordering Provider: XIMENA Capellan [facility] ([place]) LABORATORYOrdered By: SYSTEM SYSTEM on 09-07-2023 [...] Basophil, Absolute 0.1 10 3/mcL Normal 0.0-0.2 [facility] ([place]) Comment on above: Performed By: #### T SH, VIDH, ANEU, MORPH, CMP, CBC, ADIFF, LIPID, GFR #### [address] [address] Basophils/100 WBC (Bld) 1.4 % Normal 0.0-2.5 [facility] ([place] Comment on above: Performed By: #### T SH, VIDH, ANEU, MORPH, CMP, CBC, ADIFF, LIPID, GFR #### [address] [address] Eosinophil, Absolute 0.1 10 3/mcL Normal 0.0-0.4 [facility] ([place]) Comment on above: Performed By: #### T SH, VIDH, ANEU, MORPH, CMP, CBC, ADIFF, LIPID, GFR #### [address] [address] Eosinophils/100 WBC (Bld) 2.1 % Normal 0.0-7.0 [facility] ([place] Comment on above: Performed By: #### T SH, VIDH, ANEU, MORPH, CMP, CBC, ADIFF, LIPID, GFR #### [address] [address] Lymphocyte, Absolute 1.9 10 3/mcL Normal 0.8-3.9 [facility] ([place]) Comment on above: Performed By: #### T SH, VIDH, ANEU, MORPH, CMP, CBC, ADIFF, LIPID, GFR #### [address] [address] Lymphocytes/100 WBC (Bld) 41.8 % Normal 10.0-50.0 [facility] ([place] Comment on above: Performed By: #### T SH, VIDH, ANEU, MORPH, CMP, CBC, ADIFF, LIPID, GFR #### [address] [address] Monocyte, Absolute 0.4 10 3/mcL Normal 0.2-1.0 [facility] ([place]) Comment on above: Performed By: #### T SH, VIDH, ANEU, MORPH, CMP, CBC, ADIFF, LIPID, GFR #### [address] [address] Monocytes/100 WBC (Bld) 9.1 % Normal 1.7-13.0 [facility] ([place] Comment on above: Performed By: #### T SH, VIDH, ANEU, MORPH, CMP, CBC, ADIFF, LIPID, GFR #### [address] [address] Neutrophils/100 WBC (Bld) 45.6 % Normal 37.0-80.0 [facility] ([place]) Comment on above: Performed By: #### T SH, VIDH, ANEU, MORPH, CMP, CBC, ADIFF, LIPID, GFR #### [address] [address] .GFRon 10-13-2022 GFR 63 ml/min/1.73sqm Normal [facility] ([place]) Comment on above: Result Comment: GFR [...] MORPH, CMP, CBC, ADIFF, LIPID, GFR #### [address] [address] GFR Non- 52 ml/min/1.73sqm Normal [facility] ([place]) Comment on above: Result Comment: GFR [...] MORPH, CMP, CBC, ADIFF, LIPID, GFR #### [address] [address] .Morphon 10-13-2022 Platelet Estimate Normal Normal [facility] ([place]) Comment on above: Performed By: #### T SH, VIDH, ANEU, MORPH, CMP, CBC, ADIFF, LIPID, GFR #### [address] [address] .NEUABSon 10-13-2022 Neutrophil, Absolute 2.1 10 3/mcL Low 2.9-6.2 [facility] ([place]) Comment on above: Performed By: #### T SH, VIDH, ANEU, MORPH, CMP, CBC, ADIFF, LIPID, GFR #### [address] [address] CBCon 10-13-2022 Erythrocyte distribution width (RBC) [Ratio] 13.7 % Normal 11.5-14.5 [facility] ([place]) Comment on above: Performed By: #### T SH, VIDH, ANEU, MORPH, CMP, CBC, ADIFF, LIPID, GFR #### [place] [address] Hematocrit (Bld) [Volume fraction] 42.7 % Normal 37.0-47.0 [facility] ([place]) Comment on above: Performed By: #### T SH, VIDH, ANEU, MORPH, CMP, CBC, ADIFF, LIPID, GFR #### [address] [address] Hgb 14.6 G/dL Normal 12.0-16.0 [facility] ([place]) Comment on above: Performed By: #### T SH, VIDH, ANEU, MORPH, CMP, CBC, ADIFF, LIPID, GFR #### [address] [address] MCH (RBC) [Entitic mass] 30.6 pg Normal 27.0-31.2 [facility] ([place] Comment on above: Performed By: #### T SH, VIDH, ANEU, MORPH, CMP, CBC, ADIFF, LIPID, GFR #### [place] [address] MCHC 34.1 G/dL Normal 33.0-37.0 [facility] ([place] Comment on above: Performed By: #### T SH, VIDH, ANEU, MORPH, CMP, CBC, ADIFF, LIPID, GFR #### [place] [address] MCV (RBC) [Entitic vol] 89.8 fL Normal 80.0-94.0 [facility] ([place] Comment on above: Performed By: #### T SH, VIDH, ANEU, MORPH, CMP, CBC, ADIFF, LIPID, GFR #### [address] [address] Platelet 283 10 3/mcL Normal 130-400 [facility] ([place] Comment on above: Performed By: #### T SH, VIDH, ANEU, MORPH, CMP, CBC, ADIFF, LIPID, GFR #### [address] [address] Platelet mean volume (Bld) [Entitic vol] 7.9 fL Normal 7.4-10.4 [facility] ([place]) Comment on above: Performed By: #### T SH, VIDH, ANEU, MORPH, CMP, CBC, ADIFF, LIPID, GFR #### [address] [address] RBC 4.76 10 6/mcL Normal 4.20-5.40 [facility] ([place]) Comment on above: Performed By: #### T SH, VIDH, ANEU, MORPH, CMP, CBC, ADIFF, LIPID, GFR #### [address] [address] WBC 4.6 10 3/mcL Normal 4.6-10.8 [facility] ([place]) Comment on above: Performed By: #### T SH, VIDH, ANEU, MORPH, CMP, CBC, ADIFF, LIPID, GFR #### [address] [address] CMPon 10-13-2022 Albumin Level 2.5 G/dL Low 3.4-4.8 [facility] ([place]) Comment on above: Performed By: #### T SH, VIDH, ANEU, MORPH, CMP, CBC, ADIFF, LIPID, GFR #### [address] [address] Albumin/Globulin [Mass ratio] 0.5 {ratio} Low 1.1-2.5 [facility] ([place] Comment on above: Performed By: #### T SH, VIDH, ANEU, MORPH, CMP, CBC, ADIFF, LIPID, GFR #### [address] [address] ALP [Catalytic activity/Vol] 96 U/L Normal 40-135 [facility] ([place]) Comment on above: Performed By: #### T SH, VIDH, ANEU, MORPH, CMP, CBC, ADIFF, LIPID, GFR #### [address] [address] ALT [Catalytic activity/Vol] 18 U/L Normal 14-59 [facility] ([place] Comment on above: Performed By: #### T SH, VIDH, ANEU, MORPH, CMP, CBC, ADIFF, LIPID, GFR #### [address] [address] AST [Catalytic activity/Vol] 13 U/L Normal 10-40 [facility] ([place] Comment on above: Performed By: #### T SH, VIDH, ANEU, MORPH, CMP, CBC, ADIFF, LIPID, GFR #### [address] [address] Bili Total 1.2 mg/dL High 0.2-1.0 [facility] ([place]) Comment on above: Result Comment: Use of this assay is not recommended for patients undergoing treatment with eltrombopag due to the potential for falsely elevated results. Performed By: #### T SH, VIDH, ANEU, MORPH, CMP, CBC, ADIFF, LIPID, GFR #### [address] [address] BUN/Creatinine Ratio 11 ratio Normal 7-27 [facility] ([place]) Comment on above: Performed By: #### T SH, VIDH, ANEU, MORPH, CMP, CBC, ADIFF, LIPID, GFR #### [address] [address] Calcium [Mass/Vol] 9.5 mg/dL Normal 8.4-10.2 [facility] ([place] Comment on above: Performed By: #### T SH, VIDH, ANEU, MORPH, CMP, CBC, ADIFF, LIPID, GFR #### [address] [address] Chloride [Moles/Vol] 102 mmol/L Normal 98-107 [facility] ([place]) Comment on above: Performed By: #### T SH, VIDH, ANEU, MORPH, CMP, CBC, ADIFF, LIPID, GFR #### [address] [address] CO2 [Moles/Vol] 32 mmol/L High 23-31 [facility] ([place]) Comment on above: Performed By: #### T SH, VIDH, ANEU, MORPH, CMP, CBC, ADIFF, LIPID, GFR #### [address] [address] Creatinine [Mass/Vol] 1.06 mg/dL High 0.55-1.02 [facility] ([place]) Comment on above: Performed By: #### T SH, VIDH, ANEU, MORPH, CMP, CBC, ADIFF, LIPID, GFR #### [address] [address] Electrolyte Balance 5.0 mEq/L Normal 4.0-15.0 [facility] ([place]) Comment on above: Performed By: #### T SH, VIDH, ANEU, MORPH, CMP, CBC, ADIFF, LIPID, GFR #### [address] [address] Globulin 4.7 G/dL Normal [facility] ([place]) Comment on above: Performed By: #### T SH, VIDH, ANEU, MORPH, CMP, CBC, ADIFF, LIPID, GFR #### [address] [address] Glucose [Mass/Vol] 95 mg/dL Normal 80-115 [facility] ([place] Comment on above: Performed By: #### T SH, VIDH, ANEU, MORPH, CMP, CBC, ADIFF, LIPID, GFR #### [address] [address] Potassium [Moles/Vol] 4.3 mmol/L Normal 3.5-5.1 [facility] ([place]) Comment on above: Performed By: #### T SH, VIDH, ANEU, MORPH, CMP, CBC, ADIFF, LIPID, GFR #### [address] [address] Sodium [Moles/Vol] 139 mmol/L Normal 136-145 [facility] ([place] Comment on above: Performed By: #### T SH, VIDH, ANEU, MORPH, CMP, CBC, ADIFF, LIPID, GFR #### [place] [id number] [place], [place] [address] Total Protein 7.2 G/dL Normal 6.4-8.2 [facility] ([place] Comment on above: Performed By: #### T SH, VIDH, ANEU, MORPH, CMP, CBC, ADIFF, LIPID, GFR #### [place] [address] [place], [place] [address] Urea nitrogen [Mass/Vol] 12 mg/dL Normal 7-18 [facility] ([place] Comment on above: Performed By: #### T SH, VIDH, ANEU, MORPH, CMP, CBC, ADIFF, LIPID, GFR #### [address] [address] LABORATORYOrdered By: SYSTEM SYSTEM on 10-13-2022 25-hydroxyvitamin [...] Invalid Interpretation Code AO Hematology S LIPIDon 08-01-2023 Cholesterol [Mass/Vol] 208 mg/dL High 0-200 [facility] ([place]) Comment on above: Result Comment: Chol esterol Reference Interval: Less than 200 Desirable 200-239 Borderline high risk 240 and above High risk Performed By: #### T SH, VIDH, ANEU, MORPH, CMP, CBC, ADIFF, LIPID, GFR #### [address] [address] Cholesterol in HDL [Mass/Vol] 97 mg/dL High 40-60 [facility] ([place] Comment on above: Performed By: #### T SH, VIDH, ANEU, MORPH, CMP, CBC, ADIFF, LIPID, GFR #### [address] [address] Cholesterol in LDL [Mass/Vol] 96 mg/dL Normal 0-130 [facility] ([place] Comment on above: Performed By: #### T SH, VIDH, ANEU, MORPH, CMP, CBC, ADIFF, LIPID, GFR #### [address] [address] Triglyceride [Mass/Vol] 77 mg/dL Normal 0-150 [facility] ([place] Comment on above: Result Comment: Trig lyceride Reference Interval: Less than 150 Normal 150-199 Borderline high risk 200-499 High risk 500 or higher Very high risk Performed By: #### T SH, VIDH, ANEU, MORPH, CMP, CBC, ADIFF, LIPID, GFR #### [address] [address] TSHon 10-13-2022 TSH Qn 3.11 m[IU]/L Normal 0.36-3.74 [facility] ([place] Comment on above: Performed By: #### T SH, VIDH, ANEU, MORPH, CMP, CBC, ADIFF, LIPID, GFR #### [address] [address] VIDHon 10-13-2022 Vit. D 25-Hydroxy 55.8 ng/mL Normal [facility] ([place] Comment on above: Result Comment: Inte rpretive Values Based on Total 25(OH) Vitamin D: Deficient <20 ng/mL Insufficient 20 - <30 ng/mL Sufficient 30-100 ng/mL Performed By: #### T SH, VIDH, ANEU, MORPH, CMP, CBC, ADIFF, LIPID, GFR #### [place] [address] [address] LABORATORYOrdered By: [employer] SYSTEM on 06-26-2022 Creatinine [Mass/Vol] 1.05 mg/dL [...] cm Dr. Rosy Plunkett DO Work Phone: [facility] 08-21-2024 08:01-0400 Body mass index (BMI) [Ratio] 29.8 kg/m2 Dr. Rosy Plunkett DO Work Phone: [facility] 08-21-2024 08:01-0400 Body weight 71.[address] Rosy Plunkett DO Work Phone: [facility] 08-21-2024 08:01-0400 Diastolic blood pressure 86 mm[Hg] Dr. Rosy Plunkett DO Work Phone: [facility] 08-21-2024 08:01-0400 Systolic blood pressure 134 mm[Hg] Dr. Rosy Plunkett DO Work Phone: [facility] 08-21-2022 12:31-0400 Diastolic Blood Pressure Non-Invasive 108 1 JAMIE DE JESUS DPM [facility] 08-21-2022 12:31-0400 Heart rate 85 /min JAMIE DE JESUS DPM [facility] 08-21-2022 12:31-0400 Respiratory rate 16 /min JAMIE DE JESUS DPM [facility] 08-21-2022 12:31-0400 Systolic Blood Pressure Non-Invasive 122 1 JAMIE DE JESUS DPM [facility] 08-21-2022 12:25-0400 Diastolic Blood Pressure Non-Invasive 86 1 JMAIE SUPPAN DPM [facility] 08-21-2022 12:25-0400 Heart rate 85 /min JAMIE SUPPAN DPM [facility] 08-21-2022 12:25-0400 Respiratory rate 12 /min JAMIE SUPPAN DPM [facility] 08-21-2022 12:25-0400 Systolic Blood Pressure Non-Invasive 120 1 JAMIE SUPPAN DPM [facility] 08-21-2022 12:24-0400 Diastolic Blood Pressure Non-Invasive 93 1 JAMIE SUPPAN DPM [facility] 08-21-2022 12:24-0400 Heart rate 88 /min JAMIE SUPPAN DPM [facility] 08-21-2022 12:24-0400 Respiratory rate 17 /min JAMIE SUPPAN DPM [facility] 08-21-2022 12:24-0400 Systolic Blood Pressure Non-Invasive 115 1 JAMIE SUPPAN DPM [facility] 08-21-2022 12:15-0400 Respiratory Rate - Anes 17 br/min JAMIE SUPPAN DPM [facility] 08-21-2022 12:10-0400 Respiratory Rate - Anes 13 br/min JAMIE SUPPAN DPM [facility] 08-21-2022 12:05-0400 Respiratory Rate - Anes 13 br/min JAMIE SUPPAN DPM [facility] 08-21-2022 10:51-0400 Body height 155 cm JAMIE SUPPAN DPM [facility] 08-21-2022 10:51-0400 Body weight 70.5 kg JAMIE SUPPAN DPM [facility] 08-21-2022 10:51-0400 Heart rate 79 /min JAMIE SUPPAN DPM [facility] 08-07-2022 13:12-0400 Body height 155 cm JAMIE SUPPAN DPM [facility] 08-07-2022 13:12-0400 Body weight 70.5 kg JAMIE SUPPAN DPM [facility] 08-07-2022 13:12-0400 Body weight 29.34 kg/m2 JAMIE SUPPAN DPM [facility] 08-07-2022 13:12-0400 Diastolic Blood Pressure Non-Invasive 84 1 JAMIE SUPPAN DPM [facility] 08-07-2022 13:12-0400 Heart rate 92 /min JAMIE SUPPAN DPM [facility] 08-07-2022 13:12-0400 Respiratory rate 20 /min JAMIE SUPPAN DPM [facility] 08-07-2022 13:12-0400 Systolic Blood Pressure Non-Invasive 116 1 JAMIE SUPPAN DPM [facility] Encounters Encounter Date Encounter Type Care Provider Facility Start: 11-09-2024 ambulatory Rosy Barr ity:[facility] Start: 10-03-2024 End: 10-03-[address] Rosy Plunkett DO Work Phone: -Radiology [facility] Start: 10-03-2024 End: 10-03-[address] Conrad Man MD -Radiology [facility] Work Phone: Start: 10-03-2024 End: 10-03-2024 ambulatory Rosy Plunkett Facility:[facility] Start: 09-21-2024 End: 09-21-[address] ROSY PLUNKETT DO Facility:[facility] Start: 09-21-2024 Encounter for genera l adult medical examination without abnormal findings DR ROSY PLUNKETT DO [facility] Start: 09-21-2024 End: 09-21-[address] ROSY PLUNKETT DO [facility] Start: 08-21-2024 End: 08-21-2024 Patient encounter procedure Gladys GALAN -[facility] Work Phone: Start: 08-21-2024 End: 08-21-2024 Patient encounter status Gladys GALAN [facility] Start: 08-21-2024 End: 08-21-[address] Rosy Plunkett DO Work Phone: [facility] Work Phone: Start: 12-27-2023 End: 12-27-2023 ambulatory Rosy Plunkett Facility:[facility] Start: 10-04-2023 End: 01-20-2024 ambulatory BRIANNE FERGUSON PA-C Facility:B Start: 10-04-2023 End: 01-20-2024 Physical therapy management BRIANNE FERGUSON PA-C [facility] Start: 09-21-2023 End: 09-21-[address] ROSY PLUNKETT DO Facility:[facility] Start: 09-21-2023 End: 09-21-[address] ROSY PLUNKETT DO [facility] Start: 09-07-2023 End: 09-07-[address] XIMENA MOORE MD Facility:[facility] Start: 09-07-2023 End: 09-07-[address] XIMENA MOORE MD [facility] Start: 12-21-2022 End: 12-21-2022 ambulatory [facility] Work Phone: Start: 12-21-2022 End: 12-21-2022 Patient encounter procedure [facility]-Radiology, [facility] Work Phone: Start: 10-15-2022 End: 10-15-2022 ambulatory [facility] Work Phone: Start: 10-15-2022 End: 10-15-2022 Patient encounter procedure [facility]-Outpatient Breast Imaging Work Phone: Start: 10-13-2022 End: 10-13-[address] ROSY PLUNKETT DO Facility:[facility] Start: 10-13-2022 End: 10-13-[address] ROSY PLUNKETT DO [facility] Start: 08-21-2022 End: 08-21-2022 SAME DAY STAY JAMIE DE JESUS DPM [facility] Start: 08-07-2022 End: 08-07-2022 Admission to establishment JAMIE DE JESUS DPM [facility] Start: 06-26-2022 End: 06-26-[address] MARTY SWANSON MD [facility] Start: 06-26-2022 End: 06-26-[address] ROSY PLUNKETT DO [facility] Start: 04-20-2022 End: 04-20-[address] CONRAD MAN MD [facility] Start: 02-18-2022 End: 02-18-[address] ROSY PLUNKETT DO [facility] Start: 12-25-2021 End: 12-25-2021 ambulatory [facility] Work Phone: Start: 12-25-2021 End: 12-25-2021 Patient encounter procedure [facility]-Radiology, [facility] Start: 09-16-2021 End: 09-16-2021 Patient encounter procedure [facility]-Outpatient Breast Imaging Start: 09-03-2021 End: 09-03-2021 Patient encounter procedure MARILYN INFANTE [employer]ELOPMENT MANAGER-STEWARD DISHW[employer]ER [facility] Start: 08-19-2021 End: 08-19-[address] ROSY PLUNKETT DO [facility] Start: 02-01-2021 End: 02-01-2021 Patient encounter procedure RAYMOND GILL DO [facility] Procedures Date Procedure Procedure Detail Performing Clinician Start: 10-03-2024 Plain X-ray abdomen Dr. Rosy Plunkett DO Work Phone: Start: 03-15-[address] ROSY [...] Immunizations Immunization Date Immunization Notes Care Provider [facility] 02-13-2024 influenza virus vacc ine, unspecified formulation DR ROSY PLUNKETT DO [facility] 01-31-2023 influenza virus vacc ine, unspecified formulation DR ROSY PLUNKETT DO [facility] 09-18-2022 Pneumococcal conjuga te PCV20, polysaccharide [id number] conjugate, adjuvant, PF; Translations: [Prevnar 20] DR ROSY PLUNKETT DO [facility] 02-14-2022 SARS-CoV-2 (CV19)[id number] ROSY PLUNKETT DO [facility] 01-03-2022 influenza virus vacc ine, unspecified formulation DR ROSY PLUNKETT DO [facility] 08-19-2021 pneumococcal polysaccharide vaccine, 23 valent; Translations: [Pneumovax 23] DR ROSY PLUNKETT DO [facility] 02-14-2021 SARS-CoV-2 (COVID-19 ) mRNA-[address] ROSY PLUNKETT DO [facility] 02-07-2021 influenza virus vacc ine, unspecified formulation DR ROSY PLUNKETT DO [facility] 08-15-2020 tetanus toxoid, redu kerri diphtheria toxoid, and acellular pertussis vaccine, adsorbed; Translations: [Boostrix (Tdap)] RAYMOND GILL DO [facility] 06-25-2020 SARS-CoV-2 (COVID-19 ) mRNA-1273 vaccine RAYMOND GILL DO [facility] Comment on above: Result Comment: 2020: TPV60 05-28-2020 SARS-CoV-2 (COVID-19 ) mRNA-1273 vaccine RAYMOND GILL [employer] [facility] Comment on above: Result Comment: 2020: TPV60 12-23-2019 influenza virus vacc ine, unspecified formulation RAYMOND GILL [facility] Comment on above: Location History: [facility] 03-13-2019 zoster vaccine recombinant RAYMOND GILL DO [facility] 12-30-2018 influenza virus vacc ine, unspecified formulation DR ROSY PLUNKETT DO [facility] 11-23-2017 influenza virus vacc ine, unspecified formulation DR ROSY PLUNKETT DO [facility] 10-05-2008 tetanus toxoid, redu kerri diphtheria toxoid, and acellular pertussis vaccine, adsorbed RAYMOND GILL DO [facility] Payers Date Payer Category Payer Self-pay [id number] 2022 Medicare [id number] 2022 Unknown [id number] 2021 Medicare [id number] 2015 Unknown [id number] 2010 Private Health Insurance [id number] 1955 Unknown [id number] 2.16.8 [id number] 1955 Unknown [id number] 2.16.8 [id number] 1955 Unknown [id number] 2.16.8 [id number] 1955 Unknown [id number] 2.16.8 [id number] 1955 Unknown [id number] 2.16. [id number] Self-pay [id number] Unknown [id number] 2.16.8 [id number] Unknown [id number] 2.16.8 [id number] Unknown [id number] 2.16.8 [id number] Unknown [id number] 2.16.8 [id number] Social History Date Type Detail Facility Start: 08-24-2019 End: 08-18-2023 Never smoked tobacco (finding) [facility] Start: 1955 Sex Assigned At Female A [facility] Start: 02-13-2019 Tobacco smoking stat [facility] Unknown if ever smoked [facility] Start: 02-13-2019 Non-smoker [facility] Sexual Orientation [facility] Start: 09-07-2018 Sex Female (finding) [facility] Medical Equipment Procedure Code Equipment Code Equipment [...] bilat LE's Special Tests: Homans neg bilat. [facility] 08-21-2022 Functional Status ice on [facility] 08-21-2022 Functional Status Maintained [facility] 08-07-2022 Functional Status Sensory Deficits None A [facility] Mental Status Date Assessment Result Facility 08-21-2022 Mental Status Orientation Oriented x 4 [facility] 08-21-2022 Mental Status [facility] Clinical Notes 02-01-2021 to 10-04-2024 Note Date & Type Note Facility 10-04-2024 Radiology Diagnostic study note [facility] Imaging Services [address] [place], [place] [id number] Abdomen Single View MR#: [id number] Acct: [id number] Name: MARQUIS COBURN Rep #: [id number] : 1955 F 69 From: Mirella Vega MD PCP: Dr. Rosy Plunkett DO Status: REG CLI Study:Abdomen Single View Date of Exam: 10/03/24 Exam# [id number] Ordering Dr: Sasha Man MD PROCEDURE: ABDOMEN SINGLE VIEW 10/03/2024 REASON FOR EXAM: CALCULUS OF KIDNEY TECHNIQUE: ABDOMEN SINGLE VIEW COMPARISON: 12/27/2023 FINDINGS: Extensive bilateral nephrolithiasis, there are more than 10 renal stones on eachside. Largest measures 6 mm on the left and 7 mm on the right. 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 No definite ureteralstone. Scoliosis. Nondistended bowel. 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 Reading Location: [facility]- CC: Dr. Conrad Man MD; Dr. Rosy Plunkett DO ~ Take Down Inspector: Signed [facility] 08-21-2024 Evaluation note Diagnosis Onset Date Resolution Atrophic vaginitis acute August 212024 8:00am Encounter for routine gynecological examination noneactive August 21, 2024 8:00am [facility] Work Phone: 1(101) 549-942006-09-2025 [facility] [address], [address] [place] [address] OFFICE VISIT Date of Service: 08/21/24 MR#: [id number] Acct: [id number] Name: MARQUIS COBURN Rep #: [id number] : 1955 Provider: ANGELIA Delong Age/Sex: 69/F Location: [facility] Status: Signed Intake Vital Signs 08/18/23 14:41 08/21/24 08:01 08/21/24 08:08 Height 5 ft 1 in 5 ft 1 in 5 ft 1 in Weight: 158 lb 2 oz BMI 29.8 BP 134/86 H Intake Visit 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) Chief Complaint: Annual Account Resolution Specialist Required: No Is patient in pain?: No Allergies ibandronate sodium (From Boniva) Allergy (Mild, Verified 08/21/24 08:01) Pain in joints Medications ?Medication ?Instructions ?Recorded ?Confirmed ?Type biotin 2,500 mcg capsule 5,000 mcg PO DAILY 03/22/13 08/21/24 History cholecalciferol (vitamin D3) 50 2,000 unit PO BID 10/2608/21/24 History mcg (2,000 unit) tablet (Vitamin D3) ipxjmciv-vcj-tgwbw acid 0.4 1 ea PO DAILY 03/22/1312/07 [...] at home: Yes additional [facility] history: [facility] 2 Elective abortions Hx Para 2 [...] oriented to person and oriented to place HENDC Head: normal to inspection Neck Neck: normal [...] bimanual exam, uterine size normal, uterine shape normaland non-tender Bimanual Exam- Adnexa, other: normal adnexae, [...] findings: abnormal findings PRESENT QualifiedCode(s): Z01.411 - Encounterfor gynecological examination (general) (routine) with abnormal findings [...] 1 year, prn with problems Gladys Delong STEWARD DISHWASHER 08/21/24 0822 s NUDE MODEL NUDE MODEL-C> Date _ Gladys Delong NUDE MODEL NUDE MODEL-C Cosigner Signature: Date (if applicable) CC: ~ [facility]06-25-2024 Note ORIGINAL EXAMINATION: CT OF THE LEFT [...] Date: 09/07/2023 11:53:31 AM Ordering Provider: XIMENA [facility]2023 Evaluation + Plan note Future Scheduled Tests Radiology* BD Bone Density DEXA Axial Skeleton 09/18/22 [facility] 06-09-2023 Hospital Discharge instructions Patient Education 08/21/2022 12:34:06 Monitored Anesthesia [...] before eating solid foods. General instructions Take tbzv-pyt-xnvioop and prescription medicines only as told by [...] 06/21/2016 Document Revised: 05/30/2018 Document Reviewed: 06/21/2016 [employer] Patient Education 2020 [employer]. 08/21/2022 12:34:00 Heel Spur Heel Spur A [...] Are older than 40. Are overweight. Have zuxv-uhy-legf arthritis (osteoarthritis). Have plantar fascia inflammation. Participate [...] also makestretching easier in the morning. Taking dadc-ifa-snajann medicine to relieve pain, such as NSAIDs. [...] sitting or lying down. General instructions Take fzay-fbb-ugehaiw and prescription medicines only as told by [...] 04/07/2006 Document Revised: 02/16/2018 Document Reviewed: 02/16/2018 [employer] Patient Education 2020 [employer]. Follow Up Care 07/29/2022 12:57:25 With:JAMIE DE JESUS [facility], Surgery Address: [address] [place] [address], [address] [facility] [place] [address]- When:08/27/2022 08:40:00 Comments:Follow-up as scheduled [facility] 06-09-2023 Evaluation + Plan noteExtracted from: Title:Clinical Document Author:JAMIE DE JESUS PM Date:08/21/22 [place] ADMISSION HISTORY AN D PHYSICIAL CHIEF COMPLAINT: HISTORY OF PRESENT ILLNESS: REVIEW OF SYSTEMS: ACTIVE PROBLEMS: (6) CKD (chronic kidney disease) stage 3, GFR 30-59 ml/min (8664110332) Hematuria (786471614) Nephrolithiasis (506655208) Osteoarthritis, knee (430594371) Osteopenia (902526451) Pain of right thumb (999341207) MEDICATIONS: Active Inpt Meds: cefOXitin Start: 08/21/22 [...] FAMILY HISTORY: SOCIAL HISTORY: PHYSICAL EXAM: VITALS: GaokwvPkfyURBysztQMHoP9EOY7VnwwXe(kg) 08/21 10:51----260026JC14/09 70.5 24 Hr Tmax: No Data Available [...] Future Appointments Appointment Date:09/18/2022 09:00:00 AM Scheduled Provider:ROSY PLUNKETT DO Location:[facility] Appointment Type:[facility] 06-09-2023 Summary of episode note Discharge Instructions Thank you for allowing [facility] to assist you with your healthcare needs. The following is importantdischarge information regarding your hospital visit. Your Care Team ROSY PLUNKETT DO Your Diagnosis Post Op Foot Surgery What to do next Instructions From Your Doctor See Instruction Sheet Scheduled Follow-Up Appointments Appointment Type When With Where Contact [facility] 09/18/2022 09:00 AM EDT ROSY PLUNKETT DO [facility] [address] [place] [address] Follow Up Appointments Follow Up with JAMIE DE JESUS DPM, Surgery When 08/27/2022 08:40 AM EDT Why: Follow-up as scheduled Where: [address], [address] [facility] [place] [address]- The Following Activity and Diet [...] before eating solid foods. General instructions Take rtgb-bca-quyqpbc and prescription medicines only as told by [...] 06/21/2016 Document Revised: 05/30/2018 Document Reviewed: 06/21/2016 [employer] Patient Education 2020 [employer] Heel Spur A heel spur is [...] Are older than 40. Are overweight. Have qkqz-gnb-yklz arthritis (osteoarthritis). Have plantar fascia inflammation. Participate [...] also makestretching easier in the morning. Taking oydy-bnv-mwdozlr medicine to relieve pain, such as NSAIDs. [...] sitting or lying down. General instructions Take khqh-nro-qfutadc and prescription medicines only as told by [...] 04/07/2006 Document Revised: 02/16/2018 Document Reviewed: 02/16/2018 [employer] Patient Education 2020 [employer]. Additional Information VACCINATE! IT SAVES LIVES! Members of the community who have not yet received the COVID-19 vaccine and would like to receive it can visit one of [facility] vaccine clinics. There are many vaccine clinic locations within the [facility]. For locations and available times, please visit [email or web address] It is important to note that some COVID mobile vaccine clinics are held outdoors and may be canceled in rainy or stormy conditions. To learn more about pediatric vaccinations (ages 5-11), we invite you to visit the [facility] webpage. [email or web address]/[email or web address] [email or web address] learn more about the COVID-19 vaccine, we invite you to visit the CDC website for a list of frequently asked questions.https://www.cdc.gov/coronavirus/2019-ncov/vaccines/faq.html [email or web address] Patient Portal Access Instructions: Stay connected with your healthcare team and access your personal medical information anytime with the [facility] Patient Portal. Please follow the directions below to create your [facility]ooftop Down account: 1.Access the email account you provided upon registration to the hospital/physician office.2.Look for an invitation email from [facility].3.Open the email and access the invitation link: AcceptInvitation to [facility].4.Fill in the required melara to create your account. To access your account, visit [email or web address]. Click the blue button labeled Access Patient Portal and then log in with the username and password that you created in the steps above. You will be able to view your test results, lab results, a summary of your visits, upcoming appointments and more. There is also a convenient messaging option where you can send secure messages to your p rovider. In addition, you will have the ability to download any documents or summaries to your computer and/or send the information securely to a physician. Remember that your healthcare information is confidential, so carefully consider who you will allowto register on the [facility] Patient Portal for access to your information. You can also access the [facility] on the [facility] deepali. Simply click on Patient Portal and then log into your account. If you would like to receive a full copy of your medical records, please contact the [facility] Medical Records Department by calling [phone], Wednesday through Wednesday between 8 a.m. and [...] Call your local pharmacy or go to http://bit.ly/9A0Ep7s to find one close to you.3.Make use of household items: Use cat litter or old coffee grounds to dispose medications if other options arenot available. Mix your drugs with these household products, seal them in an airtight container andthrow it into the garbage. Call [facility]: [phone] to be sure your drugs can be [...] that I should contact my d octor. Patient/Facility Sales And Admin Signature: Date/Time: Relationship to Patient: Witness Name/Signature: Date/Time: [facility]06-09-2023 Anesthesiology Consult note Patient: MARQUIS COBURN Age: 67 years Sex: Female : 1955 Associated Diagnoses: None Author: BRUCE GOLDEN Preoperative Information Time of last food or [...] Problem list: Medical Hematuria / SNOMED CT 044027520 / Confirmed CKD (chronic kidney disease) stage 3, GFR 30-59 ml/min / SNOMED CT 6999640394 / Confirmed Nephrolithiasis / SNOMED CT 729725838 / Confirmed Osteoarthritis, knee / SNOMED CT 075290464 / Confirmed Osteopenia / SNOMED CT 840284553 / Confirmed Pain of right thumb / SNOMED CT 773965167 / Confirmed Canceled: Cough / SNOMED CT 75674202, Active Problems (6) CKD (chronic kidney disease) stage 3, GFR 30-59 ml/min Hematuria Nephrolithiasis Osteoarthritis, knee Osteopenia Pain of right thumb Histories Past Medical History: No active or resolved past medical history items have been selected or recorded. Family History: Cancer Mother Procedure history: Extracorporeal shockwave lithotripsy (03897715). Colonoscopy (403582855). Benign pigmented skin lesion (3684259260). Social History Social & Psychosocial Habits Alcohol 12/17/2018 Use: Never Substance Abuse 12/17/2018 Use: Never Tobacco 08/24/2019 Tobacco Use: Never (less than 100 in l Exposure to Tobacco Smoke Lives in non-smoking home Home/Environment 08/07/2022 Domestic Concerns None Living situation: Home/Independent Primary Manager French: Self Current Home Treatments None Special Services [...] Resp Rate 19 br/min (AUG 21 10:51) BIQ417 mmHg (AUG 21 10:51) DBPC 100mmHg (AUG 21 10:51) Measurements from flowsheet : Measurements 08/21/2022 10:51 EDT Height 155 cm Admission Weight 70.5 kg Fischer Body Weight 47.85 kg Pain assessment: Pain [...] available , Lab results 08/21/2022 11:15 EDT [facility] History and Physical 08/21/2022 11:13 EDT Lactated Ringers Injection Begin Bag 1,000 mL mL 08/21/2022 11:10 EDT SN - Preop - CTm Pt in SDS Room 08/21/2022 10:35 SN - Preop - CTm Pt Ready for OR/Proced 08/21/2022 11:10 08/21/2022 10:51 EDT Height 155 cm Admission Weight 70.5 kg Fischer Body Weight 47.85 kg Apical Heart Rate [...] no difficulties Skin Temperature Warm Skin Description [place], Normal for ethnicity, Dry Skin Integrity Intact Mucous Membrane Color [place] IV Present Present Antecubital Right 08/21/2022 20 [...] no symptoms Safety Brochure Information Reviewed Yes Renny Welcome Video Viewed No Teaching Evaluation No further teaching needed Prev Test Positive/Diagnosis w/COVID-19 No Admission Note-Nursing Same Day Patient History (Modified) . Assessment and Plan [place] [employer] of Anesthesiologists (ASA) physical status classification: Class III. Anesthetic Preoperative Plan Premedication: intravenous. Anesthetic technique: MAC. Induction: intravenously. Maintenance airway: Mask. Postoperative pain management: Per surgeon. Risks discussed: nausea, vomiting, headache, sore throat, dental injury, hypotension, allergic reaction, serious complications. Informed consent: signed by patient. Digitally Signed by BRUCE GOLDEN on 08/21/2022 11:26 AM [facility]06-09-2023 Note [facility] [place] ADMISSION HISTORY AND PHYSICIAL CHIEF COMPLAINT: HISTORY OF PRESENT ILLNESS: REVIEW OF SYSTEMS: ACTIVE PROBLEMS: (6) CKD (chronic kidney disease) stage 3, GFR 30-59 ml/min (5927892965) Hematuria (308329013) Nephrolithiasis (514680887) Osteoarthritis, knee (750705685) Osteopenia (080816618) Pain of right thumb (128371881) MEDICATIONS: Active Inpt Meds: cefOXitin Start: 08/21/22 [...] FAMILY HISTORY: SOCIAL HISTORY: PHYSICAL EXAM: VITALS: HitmtgGlgzAHRvgypYADhU7YVS6LiyiCy(kg) 08/21 10:51----695039BV78/09 70.5 24 Hr Tmax: No Data Available [...] DE JESUS DPM on 08/21/2022 11:15 AM [facility]11-20-2021 Evaluation + Plan note Diagnostic Tests Pending * Urine Culture 02/01/21 Future Scheduled Tests Radiology* BD Bone Density DEXA Axial Skeleton 08/15/20 [facility] Evaluation + Plan note Future Appointments Appointment Date:02/19/2022 09:30:00 AM Scheduled Provider:ROSY PLUNKETT DO Location:[facility] Appointment Type: OV [facility] Evaluation + Plan note Future Appointments Appointment Date:08/27/2022 10:30:00 AM Scheduled Provider:ROSY PLUNKETT DO Location:[facility] Appointment Type: Wellness Annual [facility] Evaluation + Plan note Future Appointments Appointment Date:09/14/2023 09:30:00 AM Scheduled Provider:ROSY PLUNKETT DO Location:[facility] Appointment Type: OV Pre Op Appointment Date:09/21/2023 09:00:00 AM Scheduled Provider:ROSY PLUNKETT DO Location:[facility] Appointment Type:PC Wellness Medicare [facility] Evaluation + Plan note Future Appointments Appointment Date:10/04/2023 09:00:00 AM Scheduled Provider: Location:[facility] Appointment Type:PT Outpatient Evaluation [facility] Evaluation + Plan note Future Appointments Appointment Date:12/09/2023 08:30:00 AM Scheduled Provider: Location:[facility] Appointment Type:PT Treatment - [facility] Evaluation + Plan note Future Appointments Appointment Date:09/25/2025 08:00:00 AM Scheduled Provider:ROSY PLUNKETT DO Location:[facility] Appointment Type:PC Wellness Medicare Future Scheduled Tests Radiology* MA Mammo Screening Bilateral w/ Rory 09/21/24 * BD Bone Density DEXA Axial Skeleton Adult (21 yrs or older) 09/21/24 [facility] Evaluation noteNo assessment information available [facility] Work Phone: Evalubuqgs note* Diagnosis Onset Date Resolution Status Admit Date Atrophic vaginitis acute August 212024 8:00am Encounter for routine gynecological examination noneactive August 212024 8:00am [facility] Work Phone: Hospital course Narrative No data available for this section [facility] Hospital Discharge instructions No data available for this section [facility] Progress note No data available for this section [facility] Progrkpt note Author Gladys Delong [facility] Note Date/Time August 21, 2024 8:22a m [facility] [address], [address] [place] [address] OFFICE VISIT Date of Service: 08/21/24 MR#: [id number] Acct: [id number] Name: MARQUIS COBURN Rep #: [id number] : 1955 Provider: ANGELIA Delong Age/Sex: 69/F Location: [facility] Status: Signed Intake Vital Signs 08/18/23 14:41 08/21/24 08:01 08/21/24 08:08 Height 5 ft 1 in 5 ft 1 in 5 ft 1 in Weight: 158 lb 2 oz BMI 29.8 BP 134/86 H Intake Visit 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) Chief Complaint: Annual Account Resolution Specialist Required: No Is patient in pain?: No Allergies ibandronate sodium (From Boniva) Allergy (Mild, Verified 08/21/24 08:01) Pain in joints Medications ?Medication ?Instructions ?Recorded ?Confirmed ?Type biotin 2,500 mcg capsule 5,000 mcg PO DAILY 03/22/13 08/21/24 History cholecalciferol (vitamin D3) 50 2,000 unit PO BID 10/2608/21/24 History mcg (2,000 unit) tablet (Vitamin D3) xucouske-vus-ywslp acid 0.4 1 ea PO DAILY 03/22/1312/07 [...] at home: Yes additional [facility]: [facility] History 2 Elective abortions Hx Para 2 [...] oriented to person and oriented to place HENDC Head: normal to inspection Neck Neck: normal [...] 1 year, prn with problems Gladys Delong STEWARD DISHWASHER 08/21/24 0822 <Electronically signed by Gladys mccray NUDE MODEL NUDE MODEL-C> Date _ Gladys Delong NUDE MODEL NUDE MODEL-C Cosigner Signature: Date (if applicable) CC: ~ [facility] Work Phone: Reason for referral (narrative)No reason for referral information [facility] Work Phone: Chief Complaint and Reason for Visit Chief Complaint SCREENING Chief Complaint Admit Date 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) August 21, 2024 8:00a m Reason for Visit Admit Date Atrophic vaginitis August 21, 2024 8:00a m Encounter for routine gynecological exam ination August 21, 2024 8:00am Advance Directives No Advanced Directives Records Found Advance Directive Response Recorded Date/ Time Advance Directives No March 22, 2013 11:16am Living Will No February 13 12:45pm Power of Graphics Intern No February 13, 2019 12:45pm Advance Directive Response Recorded Date/ Time Advance Directives No March 22, 2013 11:16am Summary Purpose Family History No Family History Records Found Additional Source Comments Care Team (unrecognized sect ion and content) Team Status: Active Member Role Status Dates Dr. Rosy Plunkett , DO Family Provider Active Dr. Rosy Plunkett , DO Primary Care Provider Activ e Team Status: Inactive Member Role Status Dates Dr. Rosy Plunkett , DO Primary Care Provider, Refe rring Provider Active Dr. Elena Beal , DO Attending Provider Active Team Status: Inactive Member Role Status Dates Dr. Rosy Plunkett , DO Primary Care Provider Activ e Dr. Conrad Man MD Attending Provider, Referr ing Provider Active Team Status: Inactive Member Role Status Dates Dr. Rosy Plunkett , DO Primary Care Provider Activ e Start: August 21, 2024 End: August 21, 2024 Dr. Rosy Plunkett , DO Referring Provider Active Start: August 21, 2024 End: August 21, 2024 Gladys Delong NUDE MODEL, NUDE MODEL-C Attending Provider Active Start: August 21, 2024 End: August 21, 2024 Team Status: Active Member Role/Relationship Status Dates Dr. Rosy Plunkett , DO Primary Care Provider Activ e Team Status: Inactive Member Role/Relationship Status Dates Dr. Rosy Plunkett , DO Primary Care Provider Activ e Start: August 21, 2024 End: August 21, 2024 Dr. Rosy Plunkett , Referring Provider Active Start: August 21, 2024 End: August 21, 2024 Gladys Delong NUDE MODEL, NUDE MODEL-C Attending Provider Active Start: August 21, 2024 End: August 21, 2024 Team Status: Inactive Member Role/Relationship Status Dates Dr. Rosy Plunkett , DO Primary Care Provider Activ e Start: October 03, 2024 End: October 03, 2024 Dr. Conrad Man MD Attending Provider Active Start: October 03, 2024 End: October 03, 2024 Dr. Conrad Man MD Referring Provider Active Start: October 03, 2024 End: October 03, 2024 Care Team (unrecognized sect ion and content) Personnel Name: ROSY PLUNKETT DO Address: Address: [address] [place] [id number] Care Team Personnel Name: ROSY PLUNKETT DO Position: P4 Physician - Primary Care Member Role: Primary Care Physician Address: Address: [address] [place] [id number] Care Team Related Persons Name: SUSHANT COBURN Address: Home [address] [place] [address] [place], [place] [id number] Address: Temporary [address] [place] [address] [place], [place] [id number] Care Team Personnel Name: ROSY PLUNKETT DO Position: P4 Physician - Primary Care Member Role: Primary Care Physician Address: Address: [address] [place] [id number] [place] Care Team Related Persons Name: SUSHANT COBURN Address: Home [address] [place] [address] [place], [place] [id number] Address: Temporary [address] [place] [address] [place], [place] [id number] Goals (unrecognized section and content) Goals may be documented in a n alternate section INFORMATION SOURCE (unrecogn ized section and content) DATE CREATED AUTHOR 10/06/2023 Count includes the [facility] ([place]) DATE CREATED AUTHOR AUTHOR'S ORGANIZ ATION 10/02/2024 [facility] DATE CREATED AUTHOR AUTHOR'S ORGANIZ ATION 11/05/2024 [facility] FOR RECORDS PERTAINING TO PATIENTS WHO ARE [...] BE BASED ON THE PRIMARY CLINICAL RECORDS. [facility] [facility]. provides no warranty or guarantee of the accuracy or completeness of information in this document.
== END | disposition home or self-care (01) ==
PROVIDERS: Referring Provider Nurse Practitioner Women's Health; Visit Provider Nurse Practitioner Women's Health
DX: Z12.31 Encounter for screening mammogram for malignant neoplasm of breast (principal); Z78.0 Asymptomatic menopausal state; Z53.09 Procedure and treatment not carried out because of other contraindication
CPT/HCPCS: 77063; 77067

== ENCOUNTER → 2024-11-16 | Outpatient (CLI) | payer MEDICARE, OTHER, SELFPAY ==
--- NOTE | 2024-11-16 08:21 | BD_ITS ---
PROCEDURE: DEXA BONE DENSITY STUDY 11/16/2024 REASON FOR EXAM: F, age 69 y/o . Postmenopausal. TECHNIQUE: Procedure Code: BDDBD Modality: DX Procedure: DEXA BONE DENSITY STUDY COMPARISON: Prior study dated October 15, 2022. FINDINGS: BMD and T-SCORES Lumbar spine: 0.791 g/cm2, T-score -2.3 Levels: L1 through L4 Change from prior: Loss of 3.2%. Left femoral neck: 0.673 g/cm2, T-score -1.6 Femoral neck comparison data not recommended for monitoring change. Left total hip: 0.793 g/cm2, T-score -1.2 Change from prior: Improvement of 1.1%. Right femoral neck: 0.642 g/cm2, T-score -1.9 Femoral neck comparison data not recommended for monitoring change. Right total hip: 0.759 g/cm2, T-score -1.5 Change from prior: Improvement of 3.4%. The World Health Organization has defined the following categories based on bone density: Normal bone density: T-score equal to or greater than -1.0 Osteopenia: T-score between -1.0 and -2.5 Osteoporosis: T-score equal to or less than -2.5 FRAX (or Comparable) Fracture Risk Assessment: 10 Year Probability of Fracture: Major Osteoporotic Fracture: 16% Hip Fracture: 3% (Note: FRAX is not to be reported in setting of normal range bone density, osteoporosis on DEXA, known history of osteoporosis, prior osteoporotic hip or vertebral fracture, or for any patient undergoing pharmacological treatment for bone loss.) The National Osteoporosis Foundation (NOF) recommends pharmacological treatment for patients with a FRAX 10-year risk of 3% or higher for a hip fracture, or 20% or higher for a major osteoporotic fracture, to prevent osteoporosis and reduce fracture risk. The patient does meet the pharmacological treatment recommendations for prevention of osteoporosis. BD/Dexa Bone Density Study IMPRESSION: OSTEOPENIA. Recommend follow-up as clinically warranted. Reading [id number]
--- NOTE | 2024-11-16 08:23 | US_ITS ---
PROCEDURE: BREAST LIMITED UNILATERAL 11/16/2024 REASON FOR EXAM: F, Age 69 y/o , RT BREAST NODULE COMPARISON: Prior mammogram dated November 01, 2024 and November 16, 2024.. TECHNIQUE: Procedure Code: USBRSTLIMIT Modality: US Procedure: BREAST LIMITED UNILATERAL. The upper half of the right breast was examined with ultrasound. FINDINGS: There is a 2 mm x 2 mm x 2 mm hypoechoic nodular density at the 12 o'clock position of the breast at 5 cm from the nipple. Increased blood flow. Biopsy recommended. US/Breast Limited Unilateral IMPRESSION: 2 mm x 2 mm x 2 mm hypoechoic nodular density at the 12 o'clock position of the breast at 5 cm from the nipple. Biopsy recommended. BI-RADS 4: SUSPICIOUS RECOMMENDATION: Biopsy Recommended Reading [id number]
== END | disposition home or self-care (01) ==
PROVIDERS: Referring Provider Nurse Practitioner Women's Health; Visit Provider Nurse Practitioner Women's Health
DX: R92.8 Other abnormal and inconclusive findings on diagnostic imaging of breast (principal); Z78.0 Asymptomatic menopausal state; N95.9 Unspecified menopausal and perimenopausal disorder
CPT/HCPCS: 76642; 77080

== ENCOUNTER → 2024-11-29 | Outpatient (CLI) | payer MEDICARE, OTHER, SELFPAY ==
--- NOTE | 2024-11-29 12:27 | US_ITS ---
PROCEDURE: BREAST LIMITED UNILATERAL 11/29/2024 REASON FOR EXAM: F, Age 69 y/o , ABNORMAL ULTRASOUND RIGHT BREAST COMPARISON: Prior examination dated November 16, 2024.. TECHNIQUE: Procedure Code: USBRSTLIMIT Modality: US Procedure: BREAST LIMITED UNILATERAL. Patient was initially scheduled for biopsy. FINDINGS: No suspicious abnormality is seen. Mildly dilated ducts. No suspicious mass is seen. US/Breast Limited Unilateral IMPRESSION: No suspicious abnormality is seen. BI-RADS 2: BENIGN RECOMMENDATION: Routine annual follow-up in 1 Year Reading Location: [place] [id number]
--- NOTE | 2024-11-29 13:09 | BI_ITS ---
EXAM: DIAG MAMM W/CAD, UNILAT 11/29/2024 CLINICAL HISTORY: F, Age 69 y/o , ABN MAMM TECHNIQUE: Procedure Code: [id number] Modality: MG Procedure: DIAG MAMM W/CAD, UNILAT. Compression spot views of the right breast were COMPARISON: Prior exam(s) dated November 09, 2024.. FINDINGS: TISSUE DENSITY: There are scattered areas of fibroglandular density. Bilateral Breast Mammographic Findings: No significant masses, calcifications or other abnormalities are identified. BI/DIAG MAMM W/CAD, UNILAT IMPRESSION: No significant abnormality is seen. OVERALL FINAL ASSESSMENT BI-RADS 1: NEGATIVE RECOMMENDATION: Routine annual follow-up in 1 Year A letter with findings and recommendations will be mailed to the patient. Reading Location: [place] [id number]
--- NOTE | 2024-11-29 14:08 | PCM.PN.BLA ---
Progress Note Patient's right breast mass was unable to be found with ultrasound and radiology. Patient did undergo a diagnostic spot compression. Prelim report -negative, continue regular screening mammography annually. Will call patient with the official report when completed
== END | disposition home or self-care (01) ==
LOC: OPUS 12:26
PROVIDERS: Referring Provider Surgery; Visit Provider Surgery
DX: R92.8 Other abnormal and inconclusive findings on diagnostic imaging of breast (principal)
CPT/HCPCS: 76642; 77065